=== PATIENT | male | born 1940 | race Caucasian/White ===

== ENCOUNTER 2016-07-23 10:47 | Inpatient (IN) ==
[2016-07-16 11:31] LABS: MANUAL DIFF NEEDED? NO
[2016-07-16 11:50] LABS: BASO% 0.5 % (0.0-0.8); EOS# 0.17 X1000 (0.0-0.7); EOS% 3.1 % (0.0-10.0); HEMATOCRIT 41.8 % (42.0-52.0); HEMOGLOBIN 13.7 g/dL (14.0-18.0); LYMPH# 1.15 X1000 (1.2-3.4); MCH 30.5 PG (27-31); MCHC 32.8 g/dL (33-37); MCV 93.1 FL (81-99); MONO# 0.66 X1000 (0.11-0.59); MONO% 12.1 % (1.7-9.3); MPV 9.5 FL (7.4-10.4); NEUT% 63.3 % (42.2-75.2); PLT 207 X1000 (130-400); RBC 4.49 XMIL (4.7-6.1)
[2016-07-16 12:02] LABS: INR 1.99; PROTIME 21.8 Seconds (9.2-11.7)
[2016-07-16 12:24] LABS: AGAP 13; BUN 14 mg/dL (8-22); CALCIUM 9.3 mg/dL (8.8-10.2); CHLORIDE 100 mmol/L (98-107); COSMO 282; POTASSIUM 4.1 mmol/L (3.5-5.1); SODIUM 141 mmol/L (136-145); TCO2 28 mmol/L (25-35)
[2016-07-23] MEDS ORDERED: PEPCID ONE (11:15)
[2016-07-23] MEDS ORDERED: LEVAQUIN 500 MG/D5W 500 MG/100 ML IVPB ONE (11:16)
[2016-07-23] MEDS ORDERED: REGLAN ONE (11:16)
[2016-07-23] MEDS ORDERED: LR 1,000 ML ONE ×2 (11:16→15:07)
[2016-07-23 12:07] LABS: INR 1.03; PROTIME 10.8 Seconds (9.2-11.7); PTT 30.3 Seconds (22.0-36.0)
[2016-07-23] MEDS ORDERED: DIPRIVAN 1% ONE (14:50)
[2016-07-23] MEDS ORDERED: ZOFRAN ONE (15:06)
[2016-07-23] MEDS ORDERED: ROBINUL ONE (15:06)
[2016-07-23] MEDS ORDERED: QUELICIN (DOSE) ONE (15:06)
[2016-07-23] MEDS ORDERED: ZEMURON ONE (15:06)
[2016-07-23] MEDS ORDERED: XYLOCAINE-MPF 2% ONE (15:06)
[2016-07-23] MEDS ORDERED: NEOSTIGMINE ONE (15:06)
[2016-07-23] MEDS ORDERED: DECADRON ONE (15:07)
[2016-07-23] MEDS ORDERED: NS 1,000 ML ONE (15:12)
[2016-07-23] MEDS ORDERED: BENADRYL LIQUID PO PRN (16:46)
[2016-07-23] MEDS ORDERED: DITROPAN PO PRN (16:46)
[2016-07-23] MEDS ORDERED: PHENERGAN PR PRN (16:46)
[2016-07-23] MEDS ORDERED: BENADRYL IV PRN (16:46)
[2016-07-23] MEDS ORDERED: TYLENOL PO PRN (16:46)
[2016-07-23] MEDS ORDERED: SODIUM CHLORIDE 0.9% INJ PRN (16:46)
[2016-07-23] MEDS ORDERED: ZOFRAN IV PRN (16:46)
[2016-07-23] MEDS ORDERED: B & O 15A SUPP PR PRN (16:46)
[2016-07-23] MEDS ORDERED: LABETALOL IV PRN (16:46)
[2016-07-23] MEDS ORDERED: PHENERGAN PO PRN (16:46)
[2016-07-23] MEDS ORDERED: PHENERGAN IV PRN (16:46)
[2016-07-23] MEDS ORDERED: NITROGLYCERIN SL PRN (18:12)
[2016-07-23] MEDS: NS 1,000 ML IV SCH (18:59)
[2016-07-23] MEDS: PERIDEX MT SCH (20:59)
[2016-07-23] MEDS: LOPID PO SCH (20:59)
[2016-07-23] MEDS: ISOPTIN SR PO SCH (20:59)
[2016-07-23] MEDS: COLACE PO SCH (21:00)
[2016-07-23] MEDS: LIPITOR PO SCH (21:00)
[2016-07-23] MEDS: FLOMAX PO SCH (21:00)
[2016-07-23] MEDS: MORPHINE IV PRN (23:31)
[2016-07-24] MEDS: NORCO-7.5 PO PRN ×5 (00:28→20:08)
[2016-07-24] MEDS: MORPHINE IV PRN ×2 (01:34→15:05)
[2016-07-24] MEDS: NS 1,000 ML IV SCH ×3 (02:41→15:40)
[2016-07-24 06:01] LABS: MANUAL DIFF NEEDED? NO
[2016-07-24 06:07] LABS: BASO% 0.2 % (0.0-0.8); HEMATOCRIT 36.8 % (42.0-52.0); IMM GRAN# 0.02 X1000 (0.0-0.04); IMM GRAN% 0.2 % (0.0-0.5); LYMPH# 0.87 X1000 (1.2-3.4); LYMPH% 7.7 % (20.5-51.1); MCH 30.5 PG (27-31); MCHC 32.6 g/dL (33-37); MCV 93.6 FL (81-99); MONO# 1.22 X1000 (0.11-0.59); MONO% 10.8 % (1.7-9.3); MPV 9.4 FL (7.4-10.4); NEUT% 81.1 % (42.2-75.2); PLT 198 X1000 (130-400); RBC 3.93 XMIL (4.7-6.1)
[2016-07-24 06:39] LABS: AGAP 12; BUN 19 mg/dL (8-22); CALCIUM 8.8 mg/dL (8.8-10.2); CHLORIDE 101 mmol/L (98-107); COSMO 281; SODIUM 139 mmol/L (136-145); TCO2 26 mmol/L (25-35)
[2016-07-24] MEDS: HYZAAR 50/12.5 MG PO SCH (10:20)
[2016-07-24] MEDS: COLACE PO SCH ×2 (10:20→20:08)
[2016-07-24] MEDS: PERIDEX MT SCH ×2 (10:20→20:08)
[2016-07-24] MEDS: LOPID PO SCH ×2 (10:21→20:08)
[2016-07-24] MEDS: ZYRTEC PO SCH (10:21)
[2016-07-24] MEDS: FLOMAX PO SCH ×2 (10:21→20:08)
[2016-07-24] MEDS: KLOR-CON PO SCH (10:21)
[2016-07-24] MEDS: ISOPTIN SR PO SCH ×2 (10:21→20:08)
[2016-07-24] MEDS: LEVAQUIN 500 MG/D5W 500 MG/100 ML IVPB IV SCH (13:01)
[2016-07-24] MEDS: LIPITOR PO SCH (20:08)
[2016-07-25] MEDS: NORCO-7.5 PO PRN ×4 (00:22→23:59)
[2016-07-25] MEDS: RESTORIL PO PRN ×2 (00:24→22:49)
[2016-07-25] MEDS: NS 1,000 ML IV SCH ×3 (01:11→13:04)
[2016-07-25 05:52] LABS: MANUAL DIFF NEEDED? NO
[2016-07-25 06:01] LABS: BASO% 0.1 % (0.0-0.8); EOS# 0.11 X1000 (0.0-0.7); EOS% 1.1 % (0.0-10.0); HEMATOCRIT 30.7 % (42.0-52.0); IMM GRAN# 0.02 X1000 (0.0-0.04); IMM GRAN% 0.2 % (0.0-0.5); LYMPH# 1.43 X1000 (1.2-3.4); LYMPH% 14.9 % (20.5-51.1); MCH 30.8 PG (27-31); MCHC 32.6 g/dL (33-37); MCV 94.5 FL (81-99); MONO# 1.09 X1000 (0.11-0.59); MONO% 11.4 % (1.7-9.3); MPV 9.3 FL (7.4-10.4); NEUT% 72.3 % (42.2-75.2); PLT 169 X1000 (130-400); RBC 3.25 XMIL (4.7-6.1)
[2016-07-25 06:09] LABS: AGAP 7; BUN 16 mg/dL (8-22); CHLORIDE 104 mmol/L (98-107); COSMO 277; INR 0.99; POTASSIUM 3.7 mmol/L (3.5-5.1); PROTIME 10.4 Seconds (9.2-11.7); SODIUM 138 mmol/L (136-145); TCO2 27 mmol/L (25-35)
[2016-07-25] MEDS: PERIDEX MT SCH ×2 (08:58→21:33)
[2016-07-25] MEDS: ZYRTEC PO SCH (08:59)
[2016-07-25] MEDS: ISOPTIN SR PO SCH ×2 (08:59→21:33)
[2016-07-25] MEDS: HYZAAR 50/12.5 MG PO SCH (08:59)
[2016-07-25] MEDS: COLACE PO SCH ×2 (08:59→21:33)
[2016-07-25] MEDS: LOPID PO SCH ×2 (08:59→21:33)
[2016-07-25] MEDS: FLOMAX PO SCH ×2 (08:59→21:33)
[2016-07-25] MEDS: KLOR-CON PO SCH (09:00)
[2016-07-25] MEDS ORDERED: SALINE LOCK IV FLUID XX ONE (09:40)
[2016-07-25] MEDS ORDERED: DULCOLAX PO ONE (09:41)
--- NOTE | 2016-07-25 10:05 | PROGRESS NOTE ---
DATE: 07/24/2016 SUBJECTIVE: Mr. Nolasco reports decent night overnight. Per nursing report, he had to be hand irrigated. The urine has cleared up some but still has red in it. Catheter was removed around 6:00 a.m. PHYSICAL EXAMINATION: Vital Signs: T. 98.3, P 66, BP 130/50. Is and Os: His urine output was estimated at 1200 mL. General: No acute distress. Abdomen: Nontender and nondistended. : Rodriguez catheter has been removed. He has not voided yet. PERTINENT LABORATORY DATA: His hematocrit is 37. Creatinine is 0.9. ASSESSMENT: A 70-year-old male status post transurethral resection of the prostate. He has been on Coumadin and was on Lovenox bridging. We have discussed that in order for him to be discharged, he will have to void spontaneously, not have significant amount of blood clots. PLAN: 1. Ambulate. 2. Discharge pending being able to void and urine looking pink. 3. I would follow him in clinic in 4 weeks. ADDENDUM: On afternoon rounds, Mr. Nolasco has not been able to void. He was in and out catheter with 340 mL reportedly removed. The urine was fairly red. Hence, a 22-Dive[place], three-way Rodriguez catheter was reintroduced. We discussed him spending another night, checking his blood work in the morning. His urine at the time of the afternoon rounds did not have any clots and was cranberry color but not thick. cc: Yasmani Amos MD
--- NOTE | 2016-07-25 10:28 | PROGRESS NOTE ---
DATE: 07/25/2016 SUBJECTIVE: Mr. Nolasco had a Rodriguez introduced in the evening. He reports having a decent night. He denies pain. He has had cranberry colored urine. OBJECTIVE: Vital Signs: Temperature 97.6, pulse 65, and blood pressure 119/47. Urine output has not been recorded yet. General: No acute distress. Abdomen: Nontender. Nondistended. Genitourinary: Rodriguez catheter is in place draining cranberry colored urine without clots. PERTINENT LABS: Hematocrit of 31 and creatinine of 0.8. ASSESSMENT: A 76-year-old male who was on chronic anticoagulation who has had fairly red urine after transurethral resection of the prostate. He is concerned about having his Lovenox restarted. I have explained to him that while his urine is that red that it would be harmful for him. Hence, the risk of restarting it would outweigh the benefit. We discussed him ambulating and hep-locking his IV fluids while monitoring his urine color. I have also discussed with him that he will likely need to keep his Rodriguez catheter for several days to make sure that he is able to gauge the degree of hematuria. He is in agreement for now. PLAN: 1. Ambulate. 2. Hep-Lock IV. 3. Keep Rodriguez catheter to gravity drainage. 4. We will reassess on evening rounds. cc: Yasmani Amos MD
[2016-07-25] MEDS: LEVAQUIN 500 MG/D5W 500 MG/100 ML IVPB IV SCH (11:00)
--- NOTE | 2016-07-25 11:31 | OPERATIVE NOTE ---
PROCEDURE DATE: 07/23/2016 SURGEON: Yasmani Amos MD PREOPERATIVE DIAGNOSIS: Benign prostatic hypertrophy, failure to medical therapy. PRIMARY PROCEDURES: Transurethral resection of the prostate. INDICATIONS: A 76-year-old male, who is on chronic anticoagulation with Coumadin, who has had urinary retention while being hospitalized for orthopedic procedure. He has tried medical therapy but continues to have difficulties. He underwent cystoscopy, which revealed significant trilobar prostatic hypertrophy. He presents for definitive intervention. FINDINGS: Adequate hemostasis at the conclusion of the case. PROCEDURE IN DETAIL: After obtaining informed consent, the patient was brought to the operative room. Perioperative antibiotics and laryngeal mask anesthesia were administered. He was placed in lithotomy position, prepped and draped in sterile fashion. A 21-Mohawk rigid cystoscope was used to gain access to the bladder, which was examined systematic fashion. The prostatic urethra did exhibit trilobar hypertrophy as seen before. His bladder had moderate trabeculations. No significant diverticula, no mucosal lesions, and no evidence of bladder stones. I was able to see bilateral ureteral orifices with clear efflux. We then removed the cystoscope and introduced a 25- [place] rigid resectoscope. Bipolar gyrus button was used to resect the adenoma, starting with the median lobe. Once the median lobe was addressed, I resected adenoma at 6 o'clock from the level of bladder neck, down to the verumontanum, to the depth of the capsule. The resection then ensued in a clockwise and counterclockwise fashion. Following that, the bladder was emptied and repeat examination revealed no evidence of significant bleeding. The resectoscope was removed and 22- [place], 3-way Rodriguez catheter was introduced and connected to irrigation with normal saline. He was extubated and taken to PACU for further recovery. ESTIMATED BLOOD LOSS: 50 mL. COMPLICATIONS: None. DISPOSITION: To PACU and subsequently floor for observation with Rodriguez catheter connected to continuous bladder irrigation. cc: Yasmani Amos MD
[2016-07-25] MEDS: LIPITOR PO SCH (21:33)
[2016-07-26] MEDS: NS 1,000 ML IV SCH (02:32)
[2016-07-26] MEDS ORDERED: TUMS PO ONE (05:22)
[2016-07-26 05:44] LABS: MANUAL DIFF NEEDED? NO
[2016-07-26 05:49] LABS: BASO% 0.3 % (0.0-0.8); EOS# 0.17 X1000 (0.0-0.7); EOS% 2.3 % (0.0-10.0); HEMATOCRIT 32.5 % (42.0-52.0); HEMOGLOBIN 10.6 g/dL (14.0-18.0); IMM GRAN# 0.02 X1000 (0.0-0.04); IMM GRAN% 0.3 % (0.0-0.5); LYMPH# 1.14 X1000 (1.2-3.4); LYMPH% 15.6 % (20.5-51.1); MCH 30.4 PG (27-31); MCHC 32.6 g/dL (33-37); MCV 93.1 FL (81-99); MONO# 0.91 X1000 (0.11-0.59); MONO% 12.5 % (1.7-9.3); MPV 9.5 FL (7.4-10.4); PLT 187 X1000 (130-400); RBC 3.49 XMIL (4.7-6.1)
[2016-07-26 05:51] LABS: INR 0.96; PROTIME 10.1 Seconds (9.2-11.7)
[2016-07-26 06:01] LABS: AGAP 9; BUN 12 mg/dL (8-22); CALCIUM 8.4 mg/dL (8.8-10.2); CHLORIDE 100 mmol/L (98-107); COSMO 272; POTASSIUM 3.2 mmol/L (3.5-5.1); SODIUM 136 mmol/L (136-145); TCO2 27 mmol/L (25-35)
[2016-07-26] MEDS ORDERED: METAMUCIL POWDER PACKET PO ONE (08:05)
[2016-07-26] MEDS ORDERED: ULTRAM PO PRN (08:11)
[2016-07-26] MEDS: ZYRTEC PO SCH (08:15)
[2016-07-26] MEDS: HYZAAR 50/12.5 MG PO SCH (08:15)
[2016-07-26] MEDS: KLOR-CON PO SCH (08:15)
[2016-07-26] MEDS: FLOMAX PO SCH ×2 (08:15→20:17)
[2016-07-26] MEDS: LOPID PO SCH ×2 (08:15→20:17)
[2016-07-26] MEDS: LOVENOX SUBQ SCH ×2 (08:15→20:17)
--- NOTE | 2016-07-26 08:27 | PROGRESS NOTE ---
DATE: 07/26/2016 SUBJECTIVE: Mr. Nolasco reports his catheter had to be flushed once overnight. He is concerned and upset about not having a bowel movement. He reports that his home regimen involves Metamucil and he has been given Colace as well as Dulcolax. He is also agitated about the possibility of discharge. OBJECTIVE: Vital Signs: T 98.3 degrees, P 69, BP 130/56, he had 5 L of urine output recorded overnight. General: No acute distress. : Rodriguez with cranberry colored urine that is not thick. No clots are seen in the tubing or the bag by my examination. Labs: His hematocrit is 32.5 which is up from 30.7 from yesterday. His creatinine is 0.7. His INR which was drawn per his request is 0.96. ASSESSMENT AND PLAN: A 76-year-old male who is on chronic anticoagulation, who underwent transurethral resection of prostate on 07/23/2016. He has hematuria as expected and supposedly had 1 clot overnight which was irrigated manually. I have explained to the patient that he will likely have hematuria for several days. I reviewed his blood work in detail including that his hematocrit has come up which argues against active blood loss. I have discussed with him that he, from my standpoint, is ready for discharge with Rodriguez catheter until Saturday. July 30. He feels uncomfortable with being discharged. I have discussed reinitiating Lovenox twice a day. His questions were answered. PLAN: 1. Start Metamucil. 2. Continue with Hep-Lock IV. 3. Keep Rodriguez catheter to gravity drainage. 4. We will recheck hematocrit tomorrow. cc: Yasmani Amos MD
[2016-07-26] MEDS: ISOPTIN SR PO SCH ×2 (10:36→20:17)
[2016-07-26] MEDS: LIPITOR PO SCH (20:17)
[2016-07-26] MEDS: RESTORIL PO PRN (22:39)
[2016-07-27] MEDS ORDERED: TUMS PO PRN (01:49)
[2016-07-27 05:14] LABS: HEMATOCRIT 30.1 % (42.0-52.0)
[2016-07-27] MEDS ORDERED: METAMUCIL POWDER PACKET PO SCH (09:00)
[2016-07-27] MEDS: ZYRTEC PO SCH (09:52)
[2016-07-27] MEDS: LOPID PO SCH (09:52)
[2016-07-27] MEDS: HYZAAR 50/12.5 MG PO SCH (09:53)
[2016-07-27] MEDS: KLOR-CON PO SCH (09:53)
[2016-07-27] MEDS: ISOPTIN SR PO SCH (09:53)
[2016-07-27] MEDS: FLOMAX PO SCH (09:53)
[2016-07-27] MEDS: LOVENOX SUBQ SCH (09:54)
[2016-07-27 12:27] VITALS: BP 136/62
--- NOTE | 2016-09-10 21:57 | DISCHARGE SUMMARY ---
ADMISSION DATE: 07/23/2016 DISCHARGE DATE: 07/27/2016 PREOPERATIVE DIAGNOSES: 1. Benign prostatic hypertrophy. 2. Urinary retention. PRIMARY PROCEDURES: Transurethral resection of the prostate on 07/23/2016. CONSULTATIONS: None. HISTORY OF PRESENT ILLNESS: A 76-year-old male with longstanding history of BPH , who has been on Saw [place] and Flomax in the past. He had knee surgery with resultant hematoma requiring evacuation. He was found to be in urinary retention after the procedure. He has had to perform intermittent catheterization. He failed finasteride. He had office cystoscopy on 06/13/2016 which revealed significant prostatic hypertrophy with median lobe. He presents for transurethral resection of prostate. PAST MEDICAL HISTORY: 1. Ischemic heart disease. 2. Diverticulosis. 3. GERD. 4. Hypertension. 5. Hyperlipidemia. 6. Hypogonadism. 7. Chronic anticoagulation. 8. Urolithiasis. 9. Sleep apnea. 10. Osteoarthritis. 11. Atrial fibrillation. 12. Retinopathy. PAST SURGICAL HISTORY: Mitral valve replacement (mechanical), bilateral cataract excision, CABG, tonsillectomy and adenoidectomy, laparoscopic Zacarias fundoplication, right total knee arthroplasty, hematoma evacuation. HOME MEDICATIONS: Atorvastatin, clindamycin, Lexapro, Lopid, vitamin B, Flagyl cream, Nitrostat, temazepam, tramadol, verapamil. ALLERGIES: Penicillin. FAMILY HISTORY: No malignancies. SOCIAL HISTORY: Denies tobacco, alcohol or drug use. HOSPITAL COURSE: Course patient was admitted and underwent the above-stated procedure. By postop day 1 his hematocrit was stable. Urine contained no clots but was cranberry in color. On postop day 2 the urine had slightly improved with labs stable again. On postop day 3 he was still clot- free with bright red urine, he had a bowel movement, he was ambulating, and his pain was controlled. On postop day 4 he was deemed to be ready for discharge with Rodriguez catheter in place. DISCHARGE CONDITION: Stable. DISCHARGE MEDICATIONS: 1. [place] 5 p.r.n. (for pain). 2. Trimethoprim 100 mg b.i.d. 3. Lopid 600 mg twice a day. 4. Losartan-hydrochlorothiazide 100/25 daily. 5. Restoril 30 mg as needed at bedtime. 6. Nitroglycerin 0.4 mg sublingual as needed. 7. Metronidazole cream twice a day. 8. Potassium chloride 20 mEq daily. 9. Vitamin C 500 mg. 10. Clindamycin phosphate cream as needed. 11. Azelaic acid 50 g topically as needed. 12. Lipitor 20 mg daily. 13. Flomax 0.4 mg twice a day. 14. Vitamin B daily. 15. Zyrtec 10 mg daily. 16. Verapamil 180 mg twice a day. 17. Metamucil daily. 18. Warfarin 4 mg at bedtime which he restarted at the time of discharge. 19. Lovenox 100 mg twice a day which he restarted on postop day 2. DISPOSITION: Home. FOLLOWUP: In 3-4 days to remove Rodriguez catheter and voiding trial. cc: Yasmani Amos MD MTDD
== END 2016-07-27 15:11 | disposition home or self-care (01) ==
LOC: OR 10:47 → 4N 10:47
PROVIDERS: ADMIT Urology; ATTEND Urology
PROC: UR.TURP (2016-07-23 13:12)

== ENCOUNTER 2016-08-06 07:24 | Inpatient (IN) ==
--- NOTE | 2016-08-06 08:10 | EKG Report ---
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 Rate : 069 BPM Atrial Rate : 069 BPM P-R Int : 192 ms QRS Dur : 112 ms QT Int : 450 ms P-R-T Axes : 067 011 035 degrees QTc Int : 482 ms Normal sinus rhythm. Prolonged QT Abnormal ECG When compared with ECG of 05-OCT-2015 13:16, premature ventricular complexes. are no longer present Unconfirmed Result
[2016-08-06] MEDS ORDERED: LEVAQUIN 500 MG/D5W 500 MG/100 ML IVPB ONE (08:29)
[2016-08-06 08:59] LABS: MANUAL DIFF NEEDED? NO
[2016-08-06 09:13] LABS: BASO% 0.3 % (0.0-0.8); EOS# 0.12 X1000 (0.0-0.7); HEMATOCRIT 20.1 % (42.0-52.0); HEMOGLOBIN 6.6 g/dL (14.0-18.0); IMM GRAN# 0.05 X1000 (0.0-0.04); IMM GRAN% 0.4 % (0.0-0.5); LYMPH% 10.4 % (20.5-51.1); MCH 30.3 PG (27-31); MCHC 32.8 g/dL (33-37); MCV 92.2 FL (81-99); MONO# 0.66 X1000 (0.11-0.59); MONO% 5.7 % (1.7-9.3); MPV 9.8 FL (7.4-10.4); NEUT% 82.2 % (42.2-75.2); PLT 258 X1000 (130-400); RBC 2.18 XMIL (4.7-6.1)
[2016-08-06 09:23] LABS: AGAP 14; BUN 17 mg/dL (8-22); CALCIUM 8.5 mg/dL (8.8-10.2); CHLORIDE 91 mmol/L (98-107); COSMO 261; POTASSIUM 3.5 mmol/L (3.5-5.1); SODIUM 126 mmol/L (136-145); TCO2 21 mmol/L (25-35)
[2016-08-06] MEDS ORDERED: NS 0 ML ONE (09:33)
[2016-08-06] MEDS ORDERED: DIPRIVAN 1% ONE (09:58)
[2016-08-06] MEDS: NORCO-5 ONE ×2 (10:24→12:44)
[2016-08-06] MEDS ORDERED: DITROPAN PO PRN (12:03)
[2016-08-06] MEDS ORDERED: LABETALOL IV PRN (12:03)
[2016-08-06] MEDS ORDERED: PHENERGAN IV PRN (12:03)
[2016-08-06] MEDS ORDERED: ZOFRAN IV PRN (12:03)
[2016-08-06] MEDS ORDERED: BENADRYL LIQUID PO PRN (12:03)
[2016-08-06] MEDS ORDERED: TYLENOL PO PRN (12:03)
[2016-08-06] MEDS ORDERED: B & O 15A SUPP PR PRN (12:03)
[2016-08-06] MEDS ORDERED: BENADRYL IV PRN (12:03)
[2016-08-06] MEDS ORDERED: PHENERGAN PR PRN (12:18)
[2016-08-06] MEDS ORDERED: SODIUM CHLORIDE 0.9% INJ PRN (12:18)
[2016-08-06] MEDS ORDERED: PHENERGAN PO PRN (12:18)
[2016-08-06] MEDS: MORPHINE IV PRN ×3 (12:34→21:52)
[2016-08-06] MEDS ORDERED: RESTORIL PO PRN (13:52)
[2016-08-06] MEDS ORDERED: NITROGLYCERIN SL PRN (13:52)
[2016-08-06] MEDS ORDERED: CLEOCIN T 1% TOP PRN (13:52)
[2016-08-06] MEDS ORDERED: PATIENT'S OWN MED TOP PRN (16:17)
[2016-08-06] MEDS: NS 1,000 ML IV SCH (16:31)
[2016-08-06] MEDS: LEVAQUIN PO SCH (16:32)
[2016-08-06] MEDS: PATIENT'S OWN MED TOP SCH ×2 (16:34→20:11)
[2016-08-06] MEDS: NORCO-7.5 PO PRN ×2 (17:00→23:57)
[2016-08-06] MEDS: FLOMAX PO SCH (20:10)
[2016-08-06] MEDS: COLACE PO SCH (20:10)
[2016-08-06] MEDS: VITAMIN C PO SCH (20:10)
[2016-08-06] MEDS: PERIDEX MT SCH (20:10)
[2016-08-06] MEDS: LOPID PO SCH (20:11)
[2016-08-07] MEDS: MORPHINE IV PRN ×8 (02:21→22:17)
[2016-08-07] MEDS: ISOPTIN SR PO SCH ×3 (02:30→20:00)
[2016-08-07] MEDS: PATIENT'S OWN MED TOP SCH ×3 (02:30→09:29)
[2016-08-07] MEDS: NORCO-7.5 PO PRN ×5 (04:11→23:45)
[2016-08-07 05:45] LABS: HEMATOCRIT 22.8 % (42.0-52.0); HEMOGLOBIN 7.5 g/dL (14.0-18.0); MCH 30.6 PG (27-31); MCHC 32.9 g/dL (33-37); MCV 93.1 FL (81-99); MPV 9.3 FL (7.4-10.4); RBC 2.45 XMIL (4.7-6.1)
[2016-08-07 06:14] LABS: AGAP 13; BUN 11 mg/dL (8-22); CALCIUM 8.1 mg/dL (8.8-10.2); CHLORIDE 98 mmol/L (98-107); COSMO 267; POTASSIUM 3.9 mmol/L (3.5-5.1); SODIUM 133 mmol/L (136-145); TCO2 22 mmol/L (25-35)
[2016-08-07] MEDS: NS 1,000 ML IV SCH ×3 (06:44→20:30)
[2016-08-07] MEDS ORDERED: DECADRON ONE (08:49)
[2016-08-07] MEDS ORDERED: NEO-SYNEPHRINE ONE (08:49)
[2016-08-07] MEDS ORDERED: ZOFRAN ONE (08:49)
[2016-08-07] MEDS ORDERED: LR 1,000 ML ONE (08:49)
[2016-08-07] MEDS ORDERED: EPHEDRINE ONE (08:49)
[2016-08-07] MEDS ORDERED: XYLOCAINE-MPF 2% ONE (08:49)
[2016-08-07] MEDS ORDERED: HYZAAR 50/12.5 MG PO SCH (09:00)
[2016-08-07] MEDS ORDERED: KLOR-CON PO SCH (09:00)
[2016-08-07] MEDS: LIPITOR PO SCH (09:22)
[2016-08-07] MEDS: VICON-C PO SCH (09:22)
[2016-08-07] MEDS: COLACE PO SCH ×2 (09:23→19:59)
[2016-08-07] MEDS: METAMUCIL PO SCH ×2 (09:23)
[2016-08-07] MEDS: ZYRTEC PO SCH (09:23)
[2016-08-07] MEDS: LOPID PO SCH ×2 (09:24→19:59)
[2016-08-07] MEDS: PERIDEX MT SCH ×2 (09:25→19:59)
[2016-08-07] MEDS: FLOMAX PO SCH ×2 (09:29→19:59)
[2016-08-07] MEDS: LEVAQUIN PO SCH (12:53)
[2016-08-07] MEDS: VITAMIN C PO SCH (19:59)
[2016-08-07] MEDS ORDERED: LOVENOX SUBQ ONE (20:17)
[2016-08-07] MEDS ORDERED: MIRALAX PO ONE (20:17)
--- NOTE | 2016-08-07 23:29 | CONSULTATION ---
DATE OF CONSULTATION: 08/07/2016 REQUESTING PHYSICIAN: Yasmani Amos MD. CHIEF COMPLAINT: Symptomatic anemia. HISTORY OF PRESENT ILLNESS: A 76-year-old white male with a very complicated past medical history presents in consultation secondary to symptomatic anemia. Current history of present illness began on 07/23/2016. At that time, patient underwent a transurethral resection of the prostate. Prior to surgical intervention, patient's Coumadin was held. Patient was transitioned with Lovenox therapy. Postoperatively, Lovenox therapy was initiated at 1 mg per kg twice daily. Unfortunately, since that time, patient has experienced clinical difficulty. The patient has experienced postoperative urinary retention secondary to blood clots requiring ER evaluation on July 29 and August 02. The patient presented to the emergency department with profound weakness on August 06. Upon evaluation, patient was found to have a significant anemia. Dr. Amos was consulted. The patient was taken for surgical intervention and cauterizing of the bladder. Hemostasis was achieved. He received 2 units of packed red blood cells yesterday. He has received another 2 units of packed red blood cells today. Overall, patient states he is improving, although slowly. He has a 3-way catheter performing a constant bladder irrigation. The patient denies fevers, chills, nausea, vomiting, or chest discomfort at present time. Patient has had profound weakness as well as some shortness of breath associated with his anemia. PAST MEDICAL HISTORY: 1. Abnormal electrocardiogram with an incomplete left bundle branch block. 2. Status post bilateral cataract removals. 3. Cervical spine pain. 4. Ischemic heart disease status post acute myocardial infarctions in 1981 and 2003. 5. Diverticulosis. 6. Chronic lower extremity edema with venous stasis. 7. Reflux disease. 8. Hypertension. 9. Hypertriglyceridemia. 10. Hyperlipidemia. 11. Hypogonadism. 12. Anticoagulation. 13. Erectile dysfunction. 14. Mitral valve disorder status post mechanical valve replacement in 2002. 15. Nephrolithiasis. 16. Obstructive sleep apnea. 17. History of a benign thyroid nodule. 18. Osteoarthritis. 19. Paroxysmal atrial fibrillation. 20. Retinal edema. 21. History of multiple actinic keratoses, seborrheic keratoses, and a basal cell carcinoma. 22. Left eye strabismus. 23. Insomnia. 24. Lower extremity varicosities. CURRENT MEDICATIONS: 1. Atorvastatin 20 mg at bedtime. 2. B-complex vitamin daily. 3. Clindamycin gel applied twice daily as needed. 4. Coumadin 4 mg nightly. 5. Lexapro 5 mg daily. 6. Finacea 15% gel applied twice daily. 7. Finasteride 5 mg daily. 8. Potassium chloride 20 mEq daily. 9. Lopid 600 mg twice daily. 10. Losartan/hydrochlorothiazide 100/25 daily. 11. Metamucil twice daily. 12. Metronidazole cream twice daily. 13. Nitrostat as needed. 14. Flomax 0.4 mg daily. 15. Temazepam 30 mg at bedtime. 16. Tramadol 3 times daily as needed. 17. Verapamil ER 180 mg twice daily. 18. Vitamin C 500 mg at bedtime. 19. Zyrtec daily. ALLERGIES: Penicillin. Phenol saline. SOCIAL HISTORY: Patient denies tobacco, alcohol or illicit drug use. 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 He enjoys raising roses. He exercises intermittently. FAMILY HISTORY: 1. Patient's father passed at age 82. Height secondary to complications of a surgical correction of an abdominal aortic aneurysm. 2. Mother passed at age 63 secondary to complications of lung cancer. REVIEW OF SYSTEMS: A 12 point review of systems was performed. Pertinent positives and negatives noted in history present illness. PHYSICAL EXAMINATION: Vital signs: Temperature 98.3 degrees, heart rate 72, respirations 16, blood pressure is 122/55. General: Slightly pale, no acute distress. Cardiovascular: Regular rate and rhythm. No significant murmurs, rubs, or gallops. Patient does have a mechanical click. Pulmonary: Clear to auscultation bilaterally. Abdomen: Soft, nontender, nondistended. Positive bowel sounds. Extremities: Moves all extremities well. No significant clubbing, cyanosis, or edema. Neurologic: Cranial 2 through 12 grossly intact. Motor and sensory grossly intact. Psychologic: Examination is appropriate. LABORATORY DATA: White blood cell count 13.6, hemoglobin 7.5, hematocrit 42.8, platelet count 212,000. Sodium 133, potassium 3.9, chloride 98, bicarb 12, creatinine 0.9, glucose 113, calcium 8.1. ASSESSMENT AND PLAN: A 76-year-old white male with a complicated past medical history as noted presents in consultation secondary to recurrent urinary retention in the setting of recent transurethral resection of the prostate. In addition, patient has symptomatic anemia secondary to associated blood loss while on anticoagulation. Patient will be admitted to the hospital for full evaluation and management of each of these conditions. 1. I appreciate the opportunity to participate in the care of Mr. Nolasco. 2. Urinary retention-this likely is secondary to recurrent bleeding and associated blood clots. We will defer management to Dr. Amos. He currently is being treated with 3-way irrigation. We will follow this closely. 3. Anticoagulation-because patient has a mechanical valve, it is important to resume anticoagulation as quickly as possible. We will provide a 40 mg dosage of Lovenox tonight. Depending on his tolerability, we will consider increasing to 100 mg tomorrow. We will follow this closely. 4. Symptomatic anemia-upon admission, patient was noted to be profoundly anemic. He has received a total of 4 units of packed red blood cells while hospitalized. We will continue to follow serial evaluations, especially in the setting of resuming Lovenox therapy. 5. Profound weakness-this likely is secondary to a combination of surgery and anemia. We will plan to initiate physical therapy and encourage activity once able. 6. Hypertension-at this point, patient's antihypertensive agents have been held secondary to hypotension. With achieving euvolemic and acceptable blood levels, I suspect the patient's blood pressure will recover. We will follow this. 7. Reflux disease with a presumed esophageal stricture-the patient has experienced increasing symptoms recently. Unfortunately, with his acute medical condition, we are unable to pursue an esophagogastroduodenoscopy. I have encouraged patient to sit upright with all meals. He is also to eat slowly and hydrate with meals. We will follow this. 8. Hypertriglyceridemia/history of paroxysmal atrial fibrillation-we will remain aware. We will continue patient's home medications. 9. Fluid, electrolytes, nutrition-we will monitor electrolytes. Normal saline at KVO. Cardiac prudent diet. 10. Prophylaxis-patient will be started on low-dose Lovenox. cc: MD Yasmani Hogan MD [facility]
[2016-08-08] MEDS: PATIENT'S OWN MED TOP SCH ×6 (00:43→20:23)
[2016-08-08] MEDS: MORPHINE IV PRN ×2 (00:46→07:23)
[2016-08-08] MEDS: NS 1,000 ML IV SCH (01:28)
[2016-08-08] MEDS: NORCO-7.5 PO PRN ×4 (04:16→22:19)
[2016-08-08 05:58] LABS: MANUAL DIFF NEEDED? NO
[2016-08-08 06:26] LABS: BASO% 0.2 % (0.0-0.8); EOS# 0.36 X1000 (0.0-0.7); EOS% 3.8 % (0.0-10.0); HEMATOCRIT 26.1 % (42.0-52.0); HEMOGLOBIN 8.5 g/dL (14.0-18.0); IMM GRAN# 0.07 X1000 (0.0-0.04); IMM GRAN% 0.7 % (0.0-0.5); LYMPH# 1.77 X1000 (1.2-3.4); LYMPH% 18.9 % (20.5-51.1); MCH 29.9 PG (27-31); MCHC 32.6 g/dL (33-37); MCV 91.9 FL (81-99); MONO# 1.04 X1000 (0.11-0.59); MONO% 11.1 % (1.7-9.3); MPV 9.3 FL (7.4-10.4); NEUT% 65.3 % (42.2-75.2); PLT 223 X1000 (130-400); RBC 2.84 XMIL (4.7-6.1)
[2016-08-08] MEDS: METAMUCIL PO SCH ×2 (10:04)
[2016-08-08] MEDS: PERIDEX MT SCH ×2 (10:04→20:19)
[2016-08-08] MEDS: LOPID PO SCH ×2 (10:04→20:19)
[2016-08-08] MEDS: VICON-C PO SCH (10:05)
[2016-08-08] MEDS: LIPITOR PO SCH (10:05)
[2016-08-08] MEDS: FLOMAX PO SCH ×2 (10:06→20:20)
[2016-08-08] MEDS: ZYRTEC PO SCH (10:06)
[2016-08-08] MEDS: ISOPTIN SR PO SCH ×2 (10:06→20:20)
[2016-08-08] MEDS: COLACE PO SCH ×2 (10:06→20:19)
[2016-08-08] MEDS: LOVENOX SUBQ SCH ×2 (10:06→20:19)
[2016-08-08] MEDS: LEVAQUIN PO SCH (11:08)
[2016-08-08 14:28] LABS: MANUAL DIFF NEEDED? NO
[2016-08-08 14:48] LABS: BASO% 0.3 % (0.0-0.8); EOS# 0.37 X1000 (0.0-0.7); EOS% 4.1 % (0.0-10.0); HEMATOCRIT 26.5 % (42.0-52.0); HEMOGLOBIN 8.5 g/dL (14.0-18.0); IMM GRAN# 0.05 X1000 (0.0-0.04); IMM GRAN% 0.6 % (0.0-0.5); LYMPH# 1.74 X1000 (1.2-3.4); LYMPH% 19.2 % (20.5-51.1); MCH 29.9 PG (27-31); MCHC 32.1 g/dL (33-37); MCV 93.3 FL (81-99); MONO# 1.12 X1000 (0.11-0.59); MONO% 12.4 % (1.7-9.3); MPV 9.5 FL (7.4-10.4); NEUT% 63.4 % (42.2-75.2); PLT 219 X1000 (130-400); RBC 2.84 XMIL (4.7-6.1)
--- NOTE | 2016-08-08 15:49 | Diag Imaging Result Doc PS360 ---
EXAM: XRAY HIP UNILATERAL LT HISTORY: left hip pain with hematoma TECHNIQUE: Two views COMMENT: There is apparent cyst in the neck of the femur anteriorly. There is no evidence of fracture or dislocation. This was apparently present time the previous barium enema 09/24/2011. Otherwise has been no significant change in the appearance of the hip. IMPRESSION: No acute bony disease. Electronically signed by Mariano Rios 08/08/2016 3:47 PM
[2016-08-08] MEDS: VITAMIN C PO SCH (20:20)
--- NOTE | 2016-08-08 22:34 | PROGRESS NOTE ---
DATE: 08/08/2016 SUBJECTIVE: Overall, patient states he feels slightly improved from yesterday. Last night, I initiated low-dose Lovenox. He tolerated this well without evidence of significant bleeding. This morning, full-dose Lovenox was initiated. Originally, patient states he has felt well. This evening, patient continues to feel well. There has been some discoloration of his urine, although no rosette blood has been identified. Hemoglobin and hematocrit have remained stable after transfusion of 4 units of packed red blood cells. The patient denies fevers, chills, nausea, vomiting, chest discomfort, or palpitations. The patient does continue to remain very weak. OBJECTIVE: Vital signs: Temperature maximum 98.4 degrees, heart rate 63-71, respirations 14-16. Blood pressure 109-135/48-66. General: Well nourished, well developed, in no acute distress. Cardiovascular: Regular rate and rhythm. No significant murmurs, rubs, or gallops. A mechanical click is identified. Pulmonary: Clear to auscultation bilaterally. Abdomen: Soft, nontender, nondistended. Positive bowel sounds. Extremities: Moves all extremities well. No significant clubbing, cyanosis, or edema. Dermatologic: Evaluation reveals a large ecchymosis adjacent to the left lateral hip. LABORATORY DATA: White blood cell count 9.04, hemoglobin 8.5, hematocrit 26.5, glucose 219,000. ASSESSMENT AND PLAN: 1. Urinary retention-this is likely secondary to recurrent bleeding with associated clots. Patient is status post surgical intervention by Dr. Amos. He has a 3-way catheter intact. We will defer management to him. 2. Anticoagulation-as above, Lovenox was initiated last night. A full dose was initiated this morning. Thus far, he has tolerated this well. We will continue Lovenox for several days to confirm hemostasis has been achieved prior to reintroducing Coumadin therapy. 3. Symptomatic anemia-as above, the patient's hemoglobin and hematocrit have been stable over 24 hours. We will hold off on further transfusions for now. We will recheck a complete blood count in the morning. 4. Profound weakness-patient does continue to be considerably weak. This likely is secondary to a combination of events. We will continue to follow patient and consider whether physical therapy is appropriate in the coming 24-48 hours. 5. Hypertension-the patient's losartan and hydrochlorothiazide has been held. Verapamil was reintroduced today. Blood pressure at present time is reasonably controlled. 7. Reflux disease with a presumed esophageal stricture-over the course of the last several weeks, the patient has experienced increasing symptoms. At this point, he is not a candidate for intervention. We will continue to encourage aspiration precautions, eating slow, small bites, and adequate hydration. 8. Left lateral hip hematoma-we will check an x-ray today to confirm there is no evidence of bony abnormality. We will continue symptomatic management. 9. Hypertriglyceridemia/history of paroxysmal atrial fibrillation-we will remain aware. 10. Disposition-at this point, patient continues to require halfway care in a hospital setting. We will plan discharge home once appropriate. cc: MD Yasmani Hogan MD [facility]TD[facility]
[2016-08-09] MEDS: MORPHINE IV PRN ×2 (01:14→23:35)
[2016-08-09] MEDS: NS 1,000 ML IV SCH (01:14)
[2016-08-09] MEDS: NORCO-7.5 PO PRN ×5 (03:46→20:49)
[2016-08-09 05:52] LABS: MANUAL DIFF NEEDED? NO
[2016-08-09 06:01] LABS: BASO% 0.2 % (0.0-0.8); EOS# 0.38 X1000 (0.0-0.7); EOS% 4.2 % (0.0-10.0); HEMATOCRIT 27.4 % (42.0-52.0); HEMOGLOBIN 8.8 g/dL (14.0-18.0); IMM GRAN# 0.05 X1000 (0.0-0.04); IMM GRAN% 0.5 % (0.0-0.5); LYMPH# 1.93 X1000 (1.2-3.4); LYMPH% 21.1 % (20.5-51.1); MCH 29.6 PG (27-31); MCHC 32.1 g/dL (33-37); MCV 92.3 FL (81-99); MONO# 1.02 X1000 (0.11-0.59); MONO% 11.2 % (1.7-9.3); MPV 9.2 FL (7.4-10.4); NEUT% 62.8 % (42.2-75.2); PLT 242 X1000 (130-400); RBC 2.97 XMIL (4.7-6.1)
[2016-08-09 06:14] LABS: AGAP 8; ALBUMIN 3.3 g/dL (3.5-5.0); ALKALINE PHOSPHATASE 59 U/L (32-122); BUN 14 mg/dL (8-22); CALCIUM 8.3 mg/dL (8.8-10.2); CHLORIDE 102 mmol/L (98-107); COSMO 276; GOT 17 U/L (10-34); GPT 10 U/L (10-44); POTASSIUM 3.9 mmol/L (3.5-5.1); SODIUM 138 mmol/L (136-145); TCO2 28 mmol/L (25-35); TOTAL BILIRUBIN 0.34 mg/dL (0.20-1.00); TOTAL PROTEIN 5.2 g/dL (6.3-8.3)
[2016-08-09] MEDS: LOVENOX SUBQ SCH ×2 (09:00→21:59)
[2016-08-09] MEDS: FLOMAX PO SCH ×2 (09:00→21:57)
[2016-08-09] MEDS: ZYRTEC PO SCH (09:13)
[2016-08-09] MEDS: LIPITOR PO SCH (09:13)
[2016-08-09] MEDS: VICON-C PO SCH (09:14)
[2016-08-09] MEDS: ISOPTIN SR PO SCH ×2 (09:14→21:56)
[2016-08-09] MEDS: COLACE PO SCH ×2 (09:14→21:56)
[2016-08-09] MEDS: LOPID PO SCH ×2 (09:14→21:56)
[2016-08-09] MEDS: METAMUCIL PO SCH ×2 (09:15)
[2016-08-09] MEDS: PERIDEX MT SCH ×2 (09:15→21:59)
[2016-08-09] MEDS: PATIENT'S OWN MED TOP SCH ×4 (09:19→21:59)
[2016-08-09] MEDS: LEVAQUIN PO SCH (12:30)
[2016-08-09] MEDS: VITAMIN C PO SCH (21:56)
--- NOTE | 2016-08-09 22:05 | PROGRESS NOTE ---
DATE: 08/09/2016 SUBJECTIVE: Patient's overall condition continues to improve. The patient continues to tolerate Lovenox 1 mg/kg twice daily. The patient's 3-way catheter was removed this morning. This evening, patient states he is feeling well. He denies fevers, chills, nausea, vomiting, or chest discomfort. He continues to complain of weakness, although this is improving. OBJECTIVE: Vital Signs: T-max 98.5 degrees, heart rate 63-81, respirations 14-18, blood pressure 129-131 over 56-59. General: Well-nourished, well-developed, in no acute distress. Cardiovascular: Regular rate and rhythm. No significant murmurs, rubs, or gallops. A mechanical click is identified. Pulmonary: Clear to auscultation bilaterally. Abdomen: Soft, nontender, nondistended. Positive bowel sounds. Extremities: Moves all extremities well. No significant clubbing, cyanosis, or edema. Dermatologic: Evaluation reveals no evidence of rash. LABORATORY DATA: White blood cell count 9.13, hemoglobin 8.8, hematocrit 27.4, platelet count 242,000. Sodium 138, potassium 3.9, chloride 102, bicarb 28, BUN 14, creatinine 0.8, glucose 94, calcium 8.3, total bilirubin 0.34, total protein 5.2, albumin 3.3, alkaline phosphatase 59, AST 17, ALT 10. ASSESSMENT AND PLAN: 1. Urinary retention - I am encouraged with the patient's improvement. This is largely secondary to associated clots. We will defer management to Dr. Amos. 2. Anticoagulation - Thus far, the patient has tolerated Lovenox 1 mg/kg q.12 hours. We will continue this for now. I anticipate we will continue Lovenox only through the weekend, and consider resuming Coumadin therapy the 1st of next week. 3. Symptomatic anemia - Patient's hemoglobin and hematocrit have stabilized. We will continue to follow. 4. Profound weakness - The patient was able to walk today after his 3-way catheter was discontinued. We will continue to encourage activity. 5. Hypertension - Patient's blood pressure is reasonably controlled at the present time. We will continue to hold losartan and hydrochlorothiazide therapy. 6. Reflux disease, with a presumed esophageal stricture - We will remain aware. At this point, he is not a candidate for EGD evaluation. We will plan to consider this as an outpatient. 7. Left lateral hip hematoma - Patient is currently being treated with pain control. Symptoms are manageable. 8. Hypertriglyceridemia/history of paroxysmal atrial fibrillation - We will continue to monitor. We will continue home medications. 9. Disposition - At this point, the patient continues to require long term care in the hospital setting. We will plan discharge home once appropriate. cc: MD Yasmani Hogan MD
[2016-08-10] MEDS: NORCO-7.5 PO PRN ×2 (02:30→18:16)
[2016-08-10 06:46] LABS: MANUAL DIFF NEEDED? NO
[2016-08-10 07:07] LABS: INR 0.98; PROTIME 10.3 Seconds (9.2-11.7)
[2016-08-10 07:32] LABS: BASO% 0.2 % (0.0-0.8); EOS# 0.29 X1000 (0.0-0.7); EOS% 2.8 % (0.0-10.0); HEMATOCRIT 26.5 % (42.0-52.0); HEMOGLOBIN 8.6 g/dL (14.0-18.0); IMM GRAN# 0.03 X1000 (0.0-0.04); IMM GRAN% 0.3 % (0.0-0.5); LYMPH# 1.41 X1000 (1.2-3.4); LYMPH% 13.5 % (20.5-51.1); MCH 30.1 PG (27-31); MCHC 32.5 g/dL (33-37); MCV 92.7 FL (81-99); MONO# 1.07 X1000 (0.11-0.59); MONO% 10.2 % (1.7-9.3); MPV 8.9 FL (7.4-10.4); PLT 239 X1000 (130-400); RBC 2.86 XMIL (4.7-6.1)
[2016-08-10] MEDS: LIPITOR PO SCH (09:27)
[2016-08-10] MEDS: ISOPTIN SR PO SCH (09:27)
[2016-08-10] MEDS: METAMUCIL PO SCH ×2 (09:28)
[2016-08-10] MEDS: COLACE PO SCH (09:28)
[2016-08-10] MEDS: FLOMAX PO SCH (09:28)
[2016-08-10] MEDS: PERIDEX MT SCH (09:29)
[2016-08-10] MEDS: ZYRTEC PO SCH (09:29)
[2016-08-10] MEDS: PATIENT'S OWN MED TOP SCH ×2 (09:29→09:30)
[2016-08-10] MEDS: LOVENOX SUBQ SCH (09:29)
[2016-08-10] MEDS: LOPID PO SCH (09:31)
[2016-08-10] MEDS: LEVAQUIN PO SCH (12:36)
[2016-08-10] MEDS: VICON-C PO SCH (12:37)
[2016-08-10 15:52] VITALS: BP 128/53
--- NOTE | 2016-08-10 18:31 | PROGRESS NOTE ---
DATE: 08/10/2016 SUBJECTIVE: Overall, patient continues to improve. This morning, patient was noted to have significant left lower extremity edema. A Doppler was performed revealing reflux, but no evidence of DVT. Over the course of the day, patient states he has done reasonably well. He continues to have adequate urine output. He does note the color of the urine to be dark, but no evidence of rosette blood. He denies fevers, chills, nausea, vomiting, shortness of breath, or chest discomfort. OBJECTIVE: Vital Signs: T-max 99.2, heart rate 78-84, respirations 16-20, blood pressure 128-135 over 53-70. General: Well nourished, well developed, no acute distress. Cardiovascular: Regular rate and rhythm. No significant murmurs, rubs, or gallops. Mechanical click as noted. Pulmonary: Clear to auscultation bilaterally. Abdomen: Soft, nontender, nondistended. Positive bowel sounds. Extremities: Moves all extremities well. No significant clubbing, cyanosis, or edema. Dermatologic: Evaluation reveals no evidence of rash. LABORATORY DATA: White blood cell count 10.46, hemoglobin 8.6, hematocrit 26.5, platelet count 239. PT 10.3, INR 0.98. ASSESSMENT AND PLAN: 1. Urinary retention-patient has achieved resolution. This likely is secondary to clot formation. We will remain aware and defer management to Dr. Yasmani mAos. As described on previous notes, patient is status post transurethral resection of the prostate. 2. Anticoagulation-patient is being treated with Lovenox 1 mg/kg q.12 hours. For now, we will continue this to ensure that patient does not demonstrate evidence of recurrent bleeding. Next week, at my office, we will determine if the initiation of Coumadin therapy is appropriate. 3. Symptomatic anemia-patient's hemoglobin and hematocrit have stabilized. We will plan to recheck this at the office next week. 4. Profound weakness-unfortunately, patient developed profound weakness associated with his anemia. This is slowly improving. We will encourage activity as an outpatient. 5. Hypertension-the patient's verapamil has been continued while hospitalized. His losartan hydrochlorothiazide has been held. I have asked him to hold this until consistently his systolic blood pressure is greater than 130. We will follow this. 6. Reflux disease with a presumed esophageal stricture-this is a new diagnosis. At this point, he is not a good candidate for EGD evaluation. We will continue symptomatic management. 7. Left lateral hip hematoma-we will continue [place] for pain control. 8. Hypertriglyceridemia/history of paroxysmal atrial fibrillation - We will remain aware. We will continue his home medications. DISPOSITION: I agree with discharge home. We will plan to see patient in the office early next week. cc: MD Yasmani Hogan MD
--- NOTE | 2016-08-13 07:39 | VASCULAR LAB ---
DATE: 08/10/2016 REFERRING PHYSICIAN: Dr. Geovani Diaz. READING PHYSICIAN: King Rios MD. CLOTH DYER: Stuart. INDICATION: Left leg pain and swelling. COMPARISON STUDY: 10/25/2015 FINDINGS: The left common femoral, superficial femoral, deep femoral, greater saphenous, popliteal, posterior tibial, and peroneal veins were imaged throughout their course. All are compressible with forward flow. No thrombus is appreciated. Reflux is noted in the left common femoral vein for 3.9 seconds and in the left greater saphenous vein for 2.8 seconds. This is near the saphenofemoral junction. The right common femoral vein was also visualized. It was patent and compressible without thrombus and had reflux for 3.2 seconds. INTERPRETATION: There was no evidence of deep or superficial venous thrombosis in the left lower extremity. There is bilateral common femoral vein reflux disease, it was also noted in the left greater saphenous vein. Compared to the prior study, the reflux disease is present as it was previously. cc: MD Geovani Milian MD Sergey S. Ananyev, MD
--- NOTE | 2016-09-21 15:57 | OPERATIVE NOTE ---
PROCEDURE DATE: 08/06/2016 SURGEON: Dr. Yasmani Amos. PREOPERATIVE DIAGNOSIS: Gross hematuria, clot retention. PRIMARY PROCEDURE: Cystoscopy, clot evacuation, fulguration of bleeding. INDICATIONS: 76-year-old male who is on chronic anticoagulation second to atrial fibrillation and mechanical valve. He underwent transurethral resection of prostate and has had some postoperative hematuria. He presented to the emergency room with clot retention. He was counseled on the above stated procedure. FINDINGS: Approximately 200-300 g of clot removal. There was not a definite bleed noted but there was a generalized oozing from the prostatic fossa which was extensively fulgurated. PROCEDURE IN DETAIL: After obtaining informed consent, patient was brought to the operative room. Perioperative antibiotics and anesthesia were administered. He was placed in the lithotomy position and prepped and draped in sterile fashion. A 21-Nepalese rigid cystoscope was used to gain access to the bladder, which was then examined in a systematic fashion. He had appropriate TUR defect from which generalized mild oozing was seen. There was not a discrete bleeder. There was no pulsatile bleeding. Upon entrance to the bladder there was a fairly well-organized clot which was surprising given that the patient has been on 100 mg of Lovenox subcutaneously twice a day. Nevertheless the clot appeared to be well organized. We removed the cystoscope and introduced a 25-N[place]alese rigid resectoscope. I then used the Hemosphere evacuator, a Estrada syringe, followed by the bipolar gyrus loop to break the clot into smaller pieces and evacuate it. It was quite extensive but eventually I was able to get rid of all the clot. There was no evidence of bleeding in the bladder itself. I was able to see bilateral patent ureteral orifices. I used the loop to cauterize TUR fossa. Upon reexamination, he appeared to have decent hemostasis. We then removed the resectoscope and I placed a 24-N[place]alese 3-way Rodriguez catheter connected to continuous bladder irrigation. He was extubated, taken to PACU for further recovery. ESTIMATED BLOOD LOSS: 30 mL of active blood loss. COMPLICATIONS: None. DISPOSITION: To PACU and then admission to the floor for observation with hematocrit and transfusion of packed red blood cells, and continuous bladder irrigation. cc: Yasmani Amos MD
--- NOTE | 2016-09-26 10:53 | DISCHARGE SUMMARY ---
ADMISSION DATE: 08/06/2016 DISCHARGE DATE: 08/10/2016 PREOPERATIVE DIAGNOSIS: Gross hematuria, clot retention. PRIMARY PROCEDURES: Cystoscopy with clot evacuation and fulguration of bleeding on 08/06/2016. CONSULTATIONS: Dr. Geovani Diaz who is Mr. Nolasco's primary care physician. HISTORY OF PRESENT ILLNESS: A 76-year-old male well known to ok status post transurethral resection of the prostate on 07/23/2016, who has had intermittent hematuria. He presented with worsening hematuria and inability to pass urine via Rodriguez catheter. He presented to the emergency room. He was counseled on cystoscopy with clot evacuation and fulguration of bleeding. PAST MEDICAL HISTORY: Atrial fibrillation, artificial valve, status post replacement, ischemic cardiac disease, diverticulosis, GERD, hypertension, hyperlipidemia, urolithiasis, obstructive sleep apnea. PAST SURGICAL HISTORY: Mechanical mitral valve replacement, TURP, cystoscopy with clot evacuation and fulguration of bleeding, cataract excision, Zacarias fundoplication, hemorrhoidectomy, and tonsillectomy. ALLERGIES: Penicillins. HOME MEDICATIONS: Vitamin B, clindamycin topical, Lovenox subcutaneously b.i.d., Lexapro, finasteride, potassium chloride, Lopid, losartan/hydrochlorothiazide, metronidazole cream, Nitrostat, Flomax, temazepam, tramadol, verapamil, Vitamin C, and Zyrtec. SOCIAL HISTORY: Denies tobacco or illicit drug use. FAMILY HISTORY: Negative for malignancies. REVIEW OF SYSTEMS: Reviewed and 12 systems negative except as mentioned in the HPI. PHYSICAL EXAMINATION: General: No acute distress. HEENT: Normocephalic and atraumatic. Cardiovascular: Regular rate and rhythm. Pulmonary: Bilateral breath sounds. Abdomen: Nontender, nondistended. : Normal external male genitalia. Rodriguez catheter in place, draining bloody urine with clots visible in the bag. HOSPITALIZATION COURSE: The patient was admitted and underwent the above-stated procedure. Postoperatively, he was transferred to the floor with a Rodriguez catheter connected to continuous bladder irrigation. On admission, he was found to have a hematocrit of 20 with a hemoglobin of 6.6. He received a total of 4 units of packed red blood cells during his hospitalization. Dr. Diaz was consulted and we have attempted to titrate his anticoagulation. Over a couple of days, his hematuria had improved significantly. By postoperative day 4, he appeared to be ready for discharge with a Rodriguez catheter in place. DISCHARGE CONDITION: Stable. DISCHARGE MEDICATIONS: Same as on admission. FOLLOWUP: Dr. Amos in 1 week for a voiding trial and postvoid residual check. cc: Yasmani Amos MD
== END 2016-08-10 18:51 | disposition home or self-care (01) ==
LOC: ED 07:24 → 4N 09:59
PROVIDERS: ADMIT Urology; ATTEND Urology

== ENCOUNTER 2016-08-14 18:16 | Inpatient (IN) ==
[2016-08-14] MEDS ORDERED: CLEOCIN T 1% TOP PRN (18:43)
[2016-08-14] MEDS ORDERED: SALINE LOCK IV FLUID XX ONE (18:43)
[2016-08-14] MEDS ORDERED: NITROGLYCERIN SL PRN (18:43)
[2016-08-14 19:10] LABS: URINE MICRO REVIEW NEEDED? NO; URINE SOURCE CATH
[2016-08-14 19:11] LABS: MANUAL DIFF NEEDED? NO
[2016-08-14 19:16] LABS: BASO% 0.3 % (0.0-0.8); EOS# 0.19 X1000 (0.0-0.7); EOS% 2.9 % (0.0-10.0); HEMATOCRIT 25.9 % (42.0-52.0); HEMOGLOBIN 8.1 g/dL (14.0-18.0); IMM GRAN# 0.02 X1000 (0.0-0.04); IMM GRAN% 0.3 % (0.0-0.5); LYMPH# 0.98 X1000 (1.2-3.4); MCH 28.7 PG (27-31); MCHC 31.3 g/dL (33-37); MCV 91.8 FL (81-99); MONO% 13.8 % (1.7-9.3); MPV 8.4 FL (7.4-10.4); NEUT% 67.7 % (42.2-75.2); PLT 242 X1000 (130-400); RBC 2.82 XMIL (4.7-6.1)
[2016-08-14 19:16] LABS: BILIRUBIN URINE NEGATIVE (NEGATIVE); BLOOD URINE LARGE (NEGATIVE); COLOR BROWN; GLUCOSE URINE NEGATIVE (NEGATIVE); LEUKOCYTES URINE MODERATE (NEGATIVE); NITRITE URINE POSITIVE (NEGATIVE); PH URINE 6.5; PROTEIN URINE 100 mg/dL (NEGATIVE); TURBIDITY URINE TURBID (CLEAR); UROBILINOGEN URINE NORMAL (NORMAL)
[2016-08-14 19:17] LABS: UR EPITHELIAL CELLS <10 /HPF (<10); URINE BACTERIA 1+ /HPF; URINE CULTURE NEEDED? YES; URINE RBC TNTC /HPF (<10)
[2016-08-14 19:28] LABS: INR 0.95; PROTIME 9.9 Seconds (9.2-11.7); PTT 33.9 Seconds (22.0-36.0)
[2016-08-14 19:35] LABS: AGAP 11; ALBUMIN 3.4 g/dL (3.5-5.0); ALKALINE PHOSPHATASE 58 U/L (32-122); BUN 11 mg/dL (8-22); CALCIUM 8.6 mg/dL (8.8-10.2); CHLORIDE 102 mmol/L (98-107); COSMO 273; GOT 14 U/L (10-34); GPT 11 U/L (10-44); POTASSIUM 4.1 mmol/L (3.5-5.1); SODIUM 137 mmol/L (136-145); TCO2 24 mmol/L (25-35); TOTAL BILIRUBIN 0.42 mg/dL (0.20-1.00); TOTAL PROTEIN 5.8 g/dL (6.3-8.3)
[2016-08-14] MEDS: LOVENOX SUBQ SCH (20:06)
[2016-08-14] MEDS: NORCO-5 PO PRN (20:06)
[2016-08-14] MEDS: LOPID PO SCH (20:06)
[2016-08-14] MEDS: VITAMIN C PO SCH (20:06)
[2016-08-14] MEDS: ISOPTIN SR PO SCH (20:08)
[2016-08-14] MEDS ORDERED: NS 500 ML ONE (21:26)
[2016-08-14] MEDS: RESTORIL PO PRN (23:30)
--- NOTE | 2016-08-14 23:31 | HISTORY AND PHYSICAL ---
PRIMARY CARE PHYSICIAN: Dr. Geovani Diaz. CHIEF COMPLAINT: Urinary retention. HISTORY OF PRESENT ILLNESS: A 76-year-old white male with a very complicated past medical history, presents for evaluation of profound fatigue and urinary retention. Current history of present illness began on 07/23/2016. At that time, patient underwent a transurethral resection of the prostate. Prior to surgical intervention, patient's Coumadin was held. Patient was transitioned to Lovenox therapy. The patient tolerated the procedure quite well. Postoperatively, Lovenox 1 mg/kg twice daily was initiated. Unfortunately, since that time, patient has experienced significant postoperative complications. The patient experienced postoperative urinary retention, secondary blood clots, requiring ER evaluation, on July 29 and August 02. On August 06, patient was admitted secondary to profound anemia, secondary to urinary blood loss and retention. The patient was taken for surgical intervention and cauterization of the bladder. Hemostasis was achieved. The patient received a total of 4 units of packed red blood cells. The patient remained hospitalized until 08/10/2016. At that time, the patient was discharged home in stable condition. Over the course of the weekend, patient states he initially did reasonably well. On Saturday, patient was noted to have increasing blood in his urine. This continued to progress throughout the day yesterday. This morning, patient awoke and was unable to urinate. He attempted on multiple occasions. Ultimately, patient was seen in clinic this evening. Patient was noted to have acute urinary retention. In addition, patient noted profound fatigue and feeling of ill being. Patient will be admitted to the hospital for full evaluation and management of these conditions. PAST MEDICAL HISTORY: 1. Abnormal electrocardiogram with incomplete left bundle branch block. 2. Status post bilateral cataract removals. 3. Cervical spine pain. 4. Ischemic heart disease. 5. Diverticulosis. 6. Chronic lower extremity edema with venostasis. 7. Reflux disease. 8. Hypertension. 9. Hypertriglyceridemia. 10. Hyperlipidemia. 11. Hypogonadism. 12. Anticoagulation. 13. Erectile dysfunction. 14. Mitral valve disorder, status post mechanical valve replacement, in 2002. 15. Nephrolithiasis. 16. Obstructive sleep apnea. 17. History of benign thyroid nodule. 18. Osteoarthritis. 19. Paroxysmal atrial fibrillation. 20. Retinal edema. 21. History of multiple actinic keratoses, seborrheic keratoses, and basal cell carcinoma. 22. Left eye strabismus. 23. Insomnia. 24. Lower extremity varicosities. CURRENT MEDICATIONS: 1. Atorvastatin 20 mg at bedtime. 2. B-complex vitamin daily. 3. Clindamycin gel applied twice daily as needed. 4. Lexapro 5 mg daily. 5. Finacea 15% gel applied twice daily. 6. Potassium chloride 20 mEq daily. 7. Lopid 600 mg twice a day. 8. Losartan and hydrochlorothiazide 100/12.5 daily. 9. Metamucil twice daily. 10. Metronidazole cream twice daily. 11. Nitrostat as needed. 12. Temazepam 30 mg at bedtime. 13. Tramadol as needed. 14. Verapamil ER 180 mg twice daily. ALLERGIES: Patient states he is allergic to penicillin and Phenol saline. SOCIAL HISTORY: Patient denies tobacco, alcohol or illicit drug use. 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 He enjoys raising [place]. He exercises intermittently. FAMILY HISTORY: Patient's father passed at age 82, secondary to complications of surgical correction of an abdominal aortic aneurysm. Patient's mother passed at age 63, secondary to complications of lung cancer. REVIEW OF SYSTEMS: A 12 point review of system was performed. Pertinent positives and negatives noted in history present illness. PHYSICAL EXAMINATION: VITAL SIGNS: Temperature 98.5, heart rate 70, respirations 20, blood pressure is 158/72. GENERAL: Well nourished, well developed, in no acute distress. HEENT: Normocephalic atraumatic. Pupils equal, round, react to light. Extraocular muscles intact. Sclerae anicteric. [place] conjunctivae. Oral and nasopharynx clear without exudate. NECK: Supple. No lymphadenopathy. No thyromegaly. No bruits auscultated. CARDIOVASCULAR: Regular rate and rhythm. No significant murmurs, rubs, or gallops. A mechanical click is noted. PULMONARY: Clear to auscultation bilaterally. ABDOMEN: Soft, nontender, slightly distended in the suprapubic region with tenderness to palpation. No guarding or rebound. Positive bowel sounds. EXTREMITIES: Moves all extremities well. No significant clubbing or cyanosis. Patient has 1+ lower extremity edema bilaterally with venostasis changes. NEUROLOGIC: Cranial nerves 2 through 12 grossly intact. Motor and sensory grossly intact. PSYCHOLOGIC: Appropriate. LABORATORY DATA: White blood cell count 6.3, hemoglobin 8.1, hematocrit 25.9, platelet count 242,000. PT 9.9, INR 0.95, PTT is 33.9. Sodium 137, potassium 4.1, chloride 102, bicarb 24, BUN 11, creatinine 0.8, glucose 97, calcium 8.6, total bilirubin 0.42, total protein 5.8, albumin 3.4, alkaline phosphatase 58. AST 14, ALT 11. ASSESSMENT AND PLAN: A 76-year-old white male with a complicated past medical history, presents in consultation of acute urinary retention. In addition, the patient is noted to have profound fatigue, likely secondary to underlying anemia. The patient will be admitted to the hospital for full evaluation and management of each of these conditions. 1. Acute urinary retention - this likely is secondary to thrombus in the bladder. A Rodriguez catheter was placed. 1600 mL was immediately removed. We will consult Dr. Amos, for further evaluation and management. 2. Symptomatic anemia - patient's hemoglobin and hematocrit are borderline. Because of his symptomatic nature, I would like to transfuse the patient 1 unit of packed red blood cells. We will follow this. 3. Anticoagulation - patient has a mechanical valve. For this reason, I do feel strongly that Lovenox will need to be continued. We will continue Lovenox 100 mg subcutaneous q.12 hours. We will follow this. 4. Profound weakness - this likely is multifactorial. We will continue his current regimen. We will encourage activity. 5. Hypertension - we will continue patient's home medications. 6. Reflux disease - patient with presumed esophageal stricture - patient has experienced increasing symptoms recently. For now, we will continue symptomatic management. He is not a good candidate for EGD evaluation at present time. 7. Hypertriglyceridemia/paroxysmal atrial fibrillation - we will remain aware. 8. Fluid, electrolytes, nutrition. We will monitor electrolytes. Saline lock IV. Cardiac prudent diet. Prophylaxis. Patient will be placed on therapeutic dose of subcu Lovenox. cc: Geovani Diaz MD
[2016-08-15] MEDS: METROCREAM TOP SCH ×3 (03:24→21:48)
[2016-08-15] MEDS: PATIENT'S OWN MED TOP SCH ×3 (03:24→21:48)
[2016-08-15] MEDS: NORCO-5 PO PRN (04:24)
[2016-08-15 06:01] LABS: MANUAL DIFF NEEDED? NO
[2016-08-15 06:18] LABS: BASO% 0.2 % (0.0-0.8); EOS# 0.21 X1000 (0.0-0.7); EOS% 2.4 % (0.0-10.0); HEMATOCRIT 25.9 % (42.0-52.0); HEMOGLOBIN 8.1 g/dL (14.0-18.0); IMM GRAN# 0.04 X1000 (0.0-0.04); IMM GRAN% 0.5 % (0.0-0.5); LYMPH# 1.06 X1000 (1.2-3.4); LYMPH% 12.1 % (20.5-51.1); MCH 28.6 PG (27-31); MCHC 31.3 g/dL (33-37); MCV 91.5 FL (81-99); MONO# 1.14 X1000 (0.11-0.59); MONO% 13.1 % (1.7-9.3); MPV 9.3 FL (7.4-10.4); NEUT% 71.7 % (42.2-75.2); PLT 235 X1000 (130-400); RBC 2.83 XMIL (4.7-6.1)
[2016-08-15] MEDS ORDERED: POTASSIUM CHLORIDE 20 MEQ PO SCH (09:00)
[2016-08-15] MEDS ORDERED: HYDROCHLOROTHIAZIDE PO SCH (09:00)
[2016-08-15] MEDS ORDERED: LOSARTAN PO SCH (09:00)
[2016-08-15] MEDS: LOVENOX SUBQ SCH ×3 (09:09→22:30)
[2016-08-15] MEDS: ISOPTIN SR PO SCH ×3 (09:10→21:47)
[2016-08-15] MEDS: LOPID PO SCH ×3 (09:10→21:46)
[2016-08-15] MEDS: VICON-C PO SCH ×2 (09:11→11:02)
[2016-08-15] MEDS: METAMUCIL PO SCH ×4 (09:11→11:02)
[2016-08-15] MEDS: ZYRTEC PO SCH ×2 (09:12→11:02)
--- NOTE | 2016-08-15 09:44 | Diag Imaging Result Doc PS360 ---
US NON VASC EXTREMITY LIMITED - 08/15/2016 INDICATION: US Lt upper lateral leg hematoma for fluid pocket TECHNIQUE: Ultrasound of the lateral left thigh COMPARISON: 01/20/2015 FINDINGS: There is apparently significant bruising at the lateral left thigh. In the superficial subcutaneous tissue, there is a heterogeneous echogenic mass like area measuring 9 x 4.7 cm. No free fluid. No internal color Doppler flow. IMPRESSION: Echogenic mass or collection in the left leg in the region of the bruising. Certainly compatible with a hematoma, although a true mass cannot be fully excluded. Correlate clinically. Electronically signed by Guido Ellington 08/15/2016 9:42 AM
[2016-08-15] MEDS ORDERED: NS 500 ML ONE (10:45)
[2016-08-15] MEDS: PERCOCET-5 PO PRN ×3 (12:31→22:30)
--- NOTE | 2016-08-15 15:26 | PROGRESS NOTE ---
DATE: 08/15/2016 SUBJECTIVE: Patient was admitted yesterday with symptomatic anemia and urinary retention. A Rodriguez catheter was placed and approximately 1600 mL of urine was immediately removed. The patient's hemoglobin and hematocrit were noted to be low. One unit of packed red blood cells was transfused. This morning, patient states, overall, he is feeling reasonably well. The patient continues to have considerable weakness. His urine per Rodriguez catheter remains blood tinged. He denies fevers, chills, nausea, vomiting, shortness of breath, or chest discomfort. He continues to have considerable pain associated with his left lateral leg hematoma. OBJECTIVE: T-max is 99.0 degrees, heart rate 52-63, respirations 14-20, blood pressure 117-146 over 58-63.General: Well nourished, well developed, no acute distress. Cardiovascular: Regular rate and rhythm. No significant murmurs, rubs, or gallops. A mechanical click is identified. Pulmonary: Clear to auscultation bilaterally. Abdomen: Soft, nontender, nondistended. Positive bowel sounds. Extremities: Moves all extremities well. No significant clubbing or cyanosis. Patient has 1 to 2+ lower extremity edema on the left and trace to 1+ lower extremity on the right. Dermatologic: Evaluation reveals a large ecchymosis with associated mass to the left lateral upper leg. LABORATORY DATA: White blood cell count 8.73, hemoglobin 8.1, hematocrit 25.9, platelet count is 235,000. ASSESSMENT AND PLAN: 1. Urinary retention - question is raised as to the etiology. This certainly could be secondary to blood clot formation. I am also concerned in regards to idiopathic urinary retention as well as urinary retention secondary to medications. We will consult Dr. Amos. We will continue Rodriguez catheter placement. We will convert the patient from [place] to Percocet. I have asked him to use the least amount of effective medication. We will follow patient's clinical course closely. 2. Symptomatic anemia - Patient's hemoglobin and hematocrit did not rise despite 1 unit of packed red blood cells. We will transfuse 1 additional unit. We will remain aware. 3. Anticoagulation - patient has a mechanical valve, thus anticoagulation is imperative. This poses a problem in the setting of bleeding. At this point, I feel the benefits outweigh the risk of Lovenox. We will continue 100 mg subcu q.12 hours. We will follow this. 4. Profound weakness - I suspect this is multifactorial. We will treat anemia as above. We will encourage activity as tolerated. 5. Hypertension - we will continue patient's home medications. 6. Reflux disease with a presumed esophageal stricture - at this point, patient is not a good candidate for EGD evaluation. We will continue omeprazole therapy. We will follow this. 7. Hypertriglyceridemia/paroxysmal atrial fibrillation - We will remain aware. 8. Disposition - at this point, patient continues to require [facility] care in a hospital setting. We will plan discharge home once appropriate. cc: Geovani Diaz MD
[2016-08-15] MEDS: LIPITOR PO SCH (21:46)
[2016-08-15] MEDS: VITAMIN C PO SCH (21:47)
[2016-08-16] MEDS: RESTORIL PO PRN (00:03)
[2016-08-16] MEDS: PERCOCET-5 PO PRN ×6 (02:28→22:52)
[2016-08-16 05:56] LABS: MANUAL DIFF NEEDED? NO
[2016-08-16 06:07] LABS: BASO% 0.4 % (0.0-0.8); EOS# 0.33 X1000 (0.0-0.7); EOS% 4.1 % (0.0-10.0); HEMATOCRIT 28.7 % (42.0-52.0); IMM GRAN# 0.04 X1000 (0.0-0.04); IMM GRAN% 0.5 % (0.0-0.5); LYMPH% 22.2 % (20.5-51.1); MCH 28.2 PG (27-31); MCHC 31.4 g/dL (33-37); MONO# 1.06 X1000 (0.11-0.59); MONO% 13.1 % (1.7-9.3); NEUT% 59.7 % (42.2-75.2); PLT 235 X1000 (130-400); RBC 3.19 XMIL (4.7-6.1)
[2016-08-16] MEDS: PRILOSEC PO SCH (06:17)
[2016-08-16] MEDS: METAMUCIL PO SCH ×2 (08:24)
[2016-08-16] MEDS: VICON-C PO SCH (08:24)
[2016-08-16] MEDS: LOPID PO SCH ×2 (08:24→22:51)
[2016-08-16] MEDS: ZYRTEC PO SCH (08:25)
[2016-08-16] MEDS: ISOPTIN SR PO SCH ×2 (08:26→22:51)
--- NOTE | 2016-08-16 09:56 | PROGRESS NOTE ---
DATE: 08/16/2016 SUBJECTIVE: Overall, patient's condition is largely unchanged. Over the course of the last 12 hours, patient has experienced increasing clot formation in his Rodriguez catheter. He has required multiple irrigations. He denies fevers, chills, nausea, vomiting, shortness of breath, or chest discomfort. He was transfused 1 unit of packed red blood cells yesterday. His hemoglobin and hematocrit responded appropriately. OBJECTIVE: Vital Signs: T-max is 99.1 degrees, heart rate 52-58, respirations 14-18, blood pressure 116-139/53-64. General: Well nourished, well developed, in no acute distress. Cardiovascular: Regular rate and rhythm. No significant murmurs, rubs, or gallops. A mechanical click is identified. Pulmonary: Clear to auscultation bilaterally. Abdomen: Soft, nontender, nondistended. Positive bowel sounds. Extremities: Moves all extremities well. No significant clubbing, cyanosis, or edema. Dermatologic: Evaluation reveals no evidence of rash. Laboratory Data: White blood cell count 8.09, hemoglobin 9, hematocrit 28.7, platelet count is 235,000. ASSESSMENT AND PLAN: 1. Urinary retention-I remain concerned that this likely is secondary to a combination of bladder laxity and possible obstruction from blood clots. I have discussed the case with Dr. Amos. He plans to replace the current Rodriguez with a larger bore Rodriguez catheter. We will start [address] irrigation. We will continue to follow this closely. As described below, it is important that we continue anticoagulation in the setting of his mechanical valve. The benefit of this outweighs the risk of genitourinary bleeding. 2. Symptomatic anemia-patient responded appropriately to 1 unit of packed red blood cells yesterday. For now, we will continue to follow serial hemoglobin and hematocrit evaluations. 3. Anticoagulation-as above, patient is anticoagulated secondary to a mechanical valve. He is being treated with Lovenox 100 mg subcutaneously every 12 hours. Again, the benefits of anticoagulation outweigh the risks. We will continue his current dosage of Lovenox. 4. Profound weakness-this likely is secondary to a combination of blood loss anemia, recent surgical intervention, and deconditioning. We will encourage patient to increase activity as tolerated. We will follow. 5. Hypertension-patient's blood pressure is reasonably controlled on his current regimen. 6. Reflux disease with a presumed esophageal stricture-at this point, patient is not a candidate for EGD evaluation. We will continue omeprazole therapy. He is minimally symptomatic. 7. Hypertriglyceridemia/paroxysmal atrial fibrillation-we will remain aware. 8. Disposition-at this point, patient continues to require correction care in the hospital setting. We will plan discharge home once appropriate. cc: Geovani Diaz MD
[2016-08-16] MEDS: PATIENT'S OWN MED TOP SCH ×2 (10:28→22:54)
[2016-08-16] MEDS: LOVENOX SUBQ SCH ×2 (10:33→22:50)
[2016-08-16] MEDS: METROCREAM TOP SCH ×2 (10:34→22:54)
[2016-08-16] MEDS: SEPTRA DS PO SCH (22:51)
[2016-08-16] MEDS: LIPITOR PO SCH (22:51)
[2016-08-16] MEDS: VITAMIN C PO SCH (22:52)
[2016-08-17] MEDS: PERCOCET-5 PO PRN ×6 (03:14→23:10)
[2016-08-17 06:11] LABS: MANUAL DIFF NEEDED? NO
[2016-08-17 06:22] LABS: BASO% 0.2 % (0.0-0.8); EOS# 0.35 X1000 (0.0-0.7); EOS% 3.9 % (0.0-10.0); HEMATOCRIT 28.6 % (42.0-52.0); HEMOGLOBIN 8.9 g/dL (14.0-18.0); IMM GRAN# 0.07 X1000 (0.0-0.04); IMM GRAN% 0.8 % (0.0-0.5); LYMPH# 1.28 X1000 (1.2-3.4); LYMPH% 14.4 % (20.5-51.1); MCH 28.2 PG (27-31); MCHC 31.1 g/dL (33-37); MCV 90.5 FL (81-99); MONO# 1.08 X1000 (0.11-0.59); MONO% 12.1 % (1.7-9.3); MPV 9.1 FL (7.4-10.4); NEUT% 68.6 % (42.2-75.2); PLT 238 X1000 (130-400); RBC 3.16 XMIL (4.7-6.1)
[2016-08-17 06:45] LABS: AGAP 9; ALBUMIN 3.1 g/dL (3.5-5.0); ALKALINE PHOSPHATASE 56 U/L (32-122); BUN 9 mg/dL (8-22); CALCIUM 8.4 mg/dL (8.8-10.2); CHLORIDE 103 mmol/L (98-107); COSMO 275; GOT 12 U/L (10-34); GPT 9 U/L (10-44); SODIUM 138 mmol/L (136-145); TCO2 26 mmol/L (25-35); TOTAL BILIRUBIN 0.34 mg/dL (0.20-1.00); TOTAL PROTEIN 5.3 g/dL (6.3-8.3)
[2016-08-17] MEDS: PRILOSEC PO SCH (07:02)
[2016-08-17] MEDS ORDERED: TYLENOL PO PRN (08:48)
[2016-08-17] MEDS: ZYRTEC PO SCH (08:58)
[2016-08-17] MEDS: ISOPTIN SR PO SCH ×2 (08:58→21:46)
[2016-08-17] MEDS: LOPID PO SCH ×2 (08:58→21:46)
[2016-08-17] MEDS: LEXAPRO PO SCH (08:58)
[2016-08-17] MEDS: VICON-C PO SCH (08:59)
[2016-08-17] MEDS: METAMUCIL PO SCH ×2 (08:59)
[2016-08-17] MEDS: SEPTRA DS PO SCH ×2 (08:59→21:46)
[2016-08-17] MEDS: PATIENT'S OWN MED TOP SCH ×2 (08:59→22:41)
[2016-08-17] MEDS: METROCREAM TOP SCH ×2 (08:59→22:41)
--- NOTE | 2016-08-17 17:28 | PROGRESS NOTE ---
DATE: 08/17/2016 SUBJECTIVE: Mr. Nolasco reports no events overnight. He states the nurses had to irrigate him once. He is currently comfortable. He is satisfied with the appearance of his urine. OBJECTIVE: Vital Signs: T 97.8 degrees, P 55, BP 141/62. There was reported urine output of 4.5 L. PHYSICAL EXAMINATION: General: No acute distress. Abdomen: Nontender, nondistended. Genitourinary: Rodriguez in place with very light pink urine with no clots evident in the bag, continuous bladder irrigation is on low rate. PERTINENT LABS: His white cell count is 9000, hematocrit 28.6. Yesterday it was 28.7. ASSESSMENT AND PLAN: A 76-year-old male with medical comorbidities on chronic anticoagulation, who is currently on Lovenox which was held today per Dr. Diaz. His urine seems to be looking better. He again reports the need for irrigation by Nursing Staff once. I reassured him as I currently do not see any clots and his urine color and consistency look good. We discussed titrating and eventually turning off his continuous bladder irrigation. We discussed that his blood count is stable. Of note, he has Staph epidermidis in his urine which is likely a contaminant but I am not opposed to having treatment. The patient is conscientious and anxious about it. It is sensitive to nitrofurantoin, oxacillin and Bactrim. PLAN: 1. I recommend continuous bladder irrigation overnight with titration hopefully being turned off. 2. Once the continuous bladder irrigation is off and his blood count is stable, he should be clear for discharge with attempt at voiding trial early next week on Saturday or Saturday. 3. Thank you for the consultation. We will follow. cc: MD Geovani Reyna MD
--- NOTE | 2016-08-17 18:08 | PROGRESS NOTE ---
DATE: 08/17/2016 SUBJECTIVE: Overall, patient's condition continues to very slowly improve. This morning I discontinued Lovenox therapy with a plan for 24 hours off of therapy. Over the course of the last 8 hours patient's urine has decreased in redness. Overall, patient states he feels reasonably well. He denies nausea, vomiting, shortness of breath, or chest discomfort. His hemoglobin and hematocrit remain stable. OBJECTIVE: Vital signs: T-max 98.4 degrees, heart rate 51-65, respirations 16-18, blood pressure 121 to 149 over 56 to 63. General: Well nourished, well developed, no acute distress. Cardiovascular: Regular rate and rhythm. No significant murmurs, rubs, or gallops. A mechanical click is noted. Pulmonary: Clear to auscultation bilaterally. Abdomen: Soft, nontender, nondistended. Positive bowel sounds. Extremities: Moves all extremities well. No significant clubbing or cyanosis. Patient does have 1 to 2+ lower extremity edema on the left. Dermatologic: Evaluation reveals no evidence of rash. LABORATORY DATA: White blood cell count 8.89, hemoglobin 8.9, hematocrit 28.6, platelet count 238,000. Sodium 138, potassium 4.0, chloride 103, bicarb 26, BUN 9, creatinine 0.8, glucose 102, calcium 8.4, total bilirubin 0.34, total protein 5.3, albumin 3.1, alkaline phosphatase 56, AST 12, ALT 9. ASSESSMENT AND PLAN: 1. Urinary retention-as on previous notes, I remain concerned this may be secondary to a combination of bladder laxity and possible obstruction from blood clots. Patient is on a 3- way catheter at present time. We will continue this. We will hold the patient's Lovenox for a total of 24 hours. We will discuss this case further with Dr. Amos. 2. Symptomatic anemia-patient's hemoglobin and hematocrit were stable after transfusions. We will continue to follow serial examinations. 3. Anticoagulation-this remains very important in the setting of a mechanical valve. We will hold Lovenox for only 24 hours. At this point, the risk of further holding therapy outweighs the benefit. We will follow patient's blood loss with serial hemoglobin, hematocrit evaluations. Long-term plan is for resuming Coumadin therapy. 4. Profound weakness-the patient's energy level remains stable. This likely is secondary to a combination of conditions as described above. We will follow this and encourage activity. 5. Hypertension-the patient's blood pressure is reasonably controlled on his current regimen. 6. Reflux disease with possible esophageal stricture-at present time, patient is not a candidate for EGD evaluation. For now, we will continue omeprazole therapy. 7. Hypertriglyceridemia/paroxysmal atrial fibrillation-will remain aware. 8. Left lateral upper leg hematoma-we will continue symptomatic management. 9. Disposition-at this point, patient continues to require [facility] care in the hospital setting. We will plan discharge home once appropriate. cc: Geovani Diaz MD
[2016-08-17] MEDS: LIPITOR PO SCH (21:46)
[2016-08-17] MEDS: VITAMIN C PO SCH (21:46)
[2016-08-18] MEDS: RESTORIL PO PRN ×2 (01:29→22:27)
[2016-08-18] MEDS: PERCOCET-5 PO PRN ×5 (04:44→22:26)
[2016-08-18 05:13] LABS: MANUAL DIFF NEEDED? NO
[2016-08-18 05:25] LABS: BASO% 0.5 % (0.0-0.8); EOS# 0.42 X1000 (0.0-0.7); HEMATOCRIT 28.2 % (42.0-52.0); HEMOGLOBIN 8.7 g/dL (14.0-18.0); IMM GRAN# 0.04 X1000 (0.0-0.04); IMM GRAN% 0.5 % (0.0-0.5); LYMPH# 1.36 X1000 (1.2-3.4); LYMPH% 16.3 % (20.5-51.1); MCHC 30.9 g/dL (33-37); MCV 90.7 FL (81-99); MONO# 1.03 X1000 (0.11-0.59); MONO% 12.4 % (1.7-9.3); MPV 8.8 FL (7.4-10.4); NEUT% 65.3 % (42.2-75.2); PLT 224 X1000 (130-400); RBC 3.11 XMIL (4.7-6.1)
[2016-08-18 05:34] LABS: AGAP 10; ALBUMIN 3.3 g/dL (3.5-5.0); ALKALINE PHOSPHATASE 53 U/L (32-122); BUN 10 mg/dL (8-22); CALCIUM 8.4 mg/dL (8.8-10.2); CHLORIDE 103 mmol/L (98-107); COSMO 276; GOT 11 U/L (10-34); GPT 8 U/L (10-44); POTASSIUM 4.3 mmol/L (3.5-5.1); SODIUM 139 mmol/L (136-145); TCO2 26 mmol/L (25-35); TOTAL BILIRUBIN 0.26 mg/dL (0.20-1.00); TOTAL PROTEIN 5.4 g/dL (6.3-8.3)
[2016-08-18] MEDS: PRILOSEC PO SCH (06:35)
[2016-08-18] MEDS: ZYRTEC PO SCH (09:05)
[2016-08-18] MEDS: ISOPTIN SR PO SCH ×2 (09:05→22:25)
[2016-08-18] MEDS: SEPTRA DS PO SCH ×2 (09:05→22:26)
[2016-08-18] MEDS: LOPID PO SCH ×2 (09:05→22:27)
[2016-08-18] MEDS: VICON-C PO SCH (09:06)
[2016-08-18] MEDS: LEXAPRO PO SCH (09:06)
[2016-08-18] MEDS: METAMUCIL PO SCH ×2 (09:06)
[2016-08-18] MEDS: METROCREAM TOP SCH ×2 (11:26→22:28)
[2016-08-18] MEDS: PATIENT'S OWN MED TOP SCH ×2 (11:27→22:27)
[2016-08-18] MEDS: LOVENOX SUBQ SCH ×2 (11:45→22:25)
--- NOTE | 2016-08-18 12:48 | PROGRESS NOTE ---
DATE: 08/18/2016 SUBJECTIVE: Overall, the patient states he is doing reasonably well. Yesterday, patient's Lovenox was held. The patient tolerated this well. The patient's urine has cleared without evidence of red discoloration secondary to blood. He denies fever, chills, nausea, vomiting, shortness of breath, or chest discomfort. His hemoglobin and hematocrit remain stable. His energy level remains low. OBJECTIVE: Vital signs: T-max 98.4, heart rate 51-63, respirations 16, blood pressure 120-149 over 54-63. General: Well nourished, well developed, in no acute distress. Cardiovascular: Regular rate and rhythm, no significant murmurs, rubs, or gallops. A mechanical click is noted. Pulmonary: Clear to auscultation bilaterally. Abdomen: Soft, nontender, nondistended, positive bowel sounds. Extremities: Moves all extremities well. No significant clubbing or cyanosis. The patient has 2+ lower extremity edema on the left and trace lower extremity edema on the right. Dermatologic: Evaluation reveals a large ecchymosis to the left lateral hip. LABORATORY DATA: White blood cell count 8.32, hemoglobin 8.7, hematocrit 28.2, platelet count is 224,000. Sodium 139, potassium 4.3, chloride 103, bicarb 26, BUN 10, creatinine 0.9, glucose 87, calcium 8.4. Total bilirubin 0.26, total protein 5.4, albumin 3.3, alkaline phosphatase 53, AST 11, ALT 8. ASSESSMENT AND PLAN: 1. Urinary retention--as in previous notes, I suspect this is secondary to a combination of bladder laxity and the possibility of clot formation. As described above, the patient's urine has cleared. His 3-way irrigation has been held. He currently is asymptomatic. We will resume anticoagulation today. We will follow this closely. Should patient's condition remain stable, we will consider discharge home tomorrow versus Saturday. 2. Symptomatic anemia--the patient's hemoglobin and hematocrit are stable. We will remain aware. 3. Anticoagulation--as noted yesterday, Lovenox was held for 24 hours. The benefits of discontinuing included halting genitourinary bleeding. At this point, the risk of valvular- associated clot is present. We will resume anticoagulation. Once again, we will follow this closely. 4. Profound weakness--the patient's overall condition is slowly improving. We will encourage activity. 5. Hypertension--the patient's blood pressure is reasonably controlled on his current regimen. 6. Reflux with a possible esophageal stricture--we will continue a proton pump inhibitor. His symptoms are stable. Once his overall condition has stabilized, we will consider an EGD evaluation. 7. Left lateral upper leg hematoma--we will continue symptomatic management. He continues to have considerable pain. 8. Hypertriglyceridemia/paroxysmal atrial fibrillation--we will remain aware. 9. Disposition--at this point, the patient continues to require senior living care in a hospital setting. We will plan discharge home once appropriate. cc: Geovani Diaz MD
[2016-08-18] MEDS: VITAMIN C PO SCH (22:25)
[2016-08-18] MEDS: LIPITOR PO SCH (22:26)
[2016-08-19 05:42] LABS: MANUAL DIFF NEEDED? NO
[2016-08-19 06:02] LABS: BASO% 0.5 % (0.0-0.8); EOS# 0.46 X1000 (0.0-0.7); EOS% 5.6 % (0.0-10.0); HEMATOCRIT 28.2 % (42.0-52.0); HEMOGLOBIN 8.8 g/dL (14.0-18.0); IMM GRAN# 0.02 X1000 (0.0-0.04); IMM GRAN% 0.2 % (0.0-0.5); LYMPH# 1.68 X1000 (1.2-3.4); LYMPH% 20.4 % (20.5-51.1); MCH 28.3 PG (27-31); MCHC 31.2 g/dL (33-37); MCV 90.7 FL (81-99); MONO# 0.95 X1000 (0.11-0.59); MONO% 11.5 % (1.7-9.3); MPV 9.1 FL (7.4-10.4); NEUT% 61.8 % (42.2-75.2); PLT 239 X1000 (130-400); RBC 3.11 XMIL (4.7-6.1)
[2016-08-19 06:27] LABS: AGAP 10; ALBUMIN 3.2 g/dL (3.5-5.0); ALKALINE PHOSPHATASE 57 U/L (32-122); BUN 12 mg/dL (8-22); CALCIUM 8.3 mg/dL (8.8-10.2); CHLORIDE 105 mmol/L (98-107); COSMO 280; GOT 12 U/L (10-34); GPT 8 U/L (10-44); POTASSIUM 4.2 mmol/L (3.5-5.1); SODIUM 141 mmol/L (136-145); TCO2 26 mmol/L (25-35); TOTAL BILIRUBIN 0.19 mg/dL (0.20-1.00); TOTAL PROTEIN 5.4 g/dL (6.3-8.3)
[2016-08-19] MEDS: PRILOSEC PO SCH (08:15)
[2016-08-19] MEDS: PERCOCET-5 PO PRN ×2 (09:06→14:24)
[2016-08-19] MEDS: LOPID PO SCH ×2 (09:18→20:56)
[2016-08-19] MEDS: ISOPTIN SR PO SCH ×2 (09:18→20:56)
[2016-08-19] MEDS: ZYRTEC PO SCH (09:19)
[2016-08-19] MEDS: METAMUCIL PO SCH ×2 (09:19)
[2016-08-19] MEDS: VICON-C PO SCH (09:19)
[2016-08-19] MEDS: SEPTRA DS PO SCH ×2 (09:19→20:56)
[2016-08-19] MEDS: LEXAPRO PO SCH (09:19)
[2016-08-19] MEDS: PATIENT'S OWN MED TOP SCH ×2 (09:22→21:08)
--- NOTE | 2016-08-19 10:07 | PROGRESS NOTE ---
DATE: 08/19/2016 SUBJECTIVE: Overall, patient continues to slowly improve. Clinically, patient's urinalysis has essentially cleared. There is no evidence of blood per visual examination. His p.o. intake remains reasonable. He is tolerating Lovenox therapy. He denies fevers, chills, nausea, vomiting, shortness of breath, or chest discomfort. His energy level remains low. OBJECTIVE: Vital Signs: T-max 98.5 degrees, heart rate 59-79, respirations 16-20, blood pressure 120-132/45-66. General: Well nourished, well developed, no acute distress. Cardiovascular: Regular rate and rhythm. No significant murmurs, rubs, or gallops. A mechanical click is identified. Pulmonary: Clear to auscultation bilaterally. Abdomen: Soft, nontender, nondistended. Positive bowel sounds. Extremities: Moves all extremities well. No significant clubbing or cyanosis. There is 2+ lower extremity edema noted on the left, trace on the right. Dermatologic: Evaluation reveals a large left lateral leg hematoma. Laboratory Data: White blood cell count 8.24, hemoglobin 8.8, hematocrit 28.2, platelet count is 239,000. Sodium 141, potassium 4.2, chloride 105, bicarb 26, BUN 12, creatinine 0.9, glucose 87, calcium 8.3. Total bilirubin 0.19, total protein 5.4, albumin 3.2, alkaline phosphatase 57, AST 12, ALT 8. ASSESSMENT AND PLAN: 1. Urinary retention-per previous notes, I suspect this is secondary to a combination of lateral laxity and a possible clot obstruction. Patient is currently being treated with 3-way irrigation. At this point, I feel transitioning away from this is most appropriate. We will clamp his irrigation. We will follow up patient to confirm no evidence of clot formation returns. We will follow this along with urology. 2. Symptomatic anemia-patient is status post transfusions. Hemoglobin and hematocrit at the present time are stable. We will follow this with Lovenox intervention. 3. Anticoagulation-as above, patient is being treated with Lovenox. At this point, because of his multiple hospitalizations secondary to bleeding, we will continue to hold Coumadin. We will follow this closely as well. 4. Profound weakness-patient is slowly improving. We will encourage activity. 5. Hypertension-the patient's blood pressure is adequately controlled on his current regimen. 6. Reflux disease with a possible esophageal stricture-the patient's symptoms are decreasing. We will continue a proton pump inhibitor. Once patient is over this acute illness, we will consider whether an EGD is appropriate. 7. Left lateral upper leg hematoma-we will continue symptomatic management. 8. Hypertriglyceridemia/paroxysmal atrial fibrillation-we will remain aware. 9. Disposition-at this point, patient continues to require detention care in a hospital setting. Should patient tolerate transition away from bladder irrigation, we will plan discharge home in the morning. cc: Geovani Diaz MD
[2016-08-19] MEDS: METROCREAM TOP SCH ×2 (11:06→22:18)
[2016-08-19] MEDS: LOVENOX SUBQ SCH ×2 (11:06→22:56)
[2016-08-19] MEDS: LIPITOR PO SCH (20:56)
[2016-08-19] MEDS: VITAMIN C PO SCH (20:56)
[2016-08-19] MEDS: RESTORIL PO PRN (22:55)
[2016-08-20] MEDS: PERCOCET-5 PO PRN ×4 (04:46→22:30)
[2016-08-20] MEDS: PRILOSEC PO SCH (06:11)
[2016-08-20] MEDS: LOPID PO SCH ×2 (10:09→21:57)
[2016-08-20] MEDS: SEPTRA DS PO SCH ×2 (10:09→21:57)
[2016-08-20] MEDS: VICON-C PO SCH (10:09)
[2016-08-20] MEDS: LEXAPRO PO SCH (10:09)
[2016-08-20] MEDS: METAMUCIL PO SCH ×2 (10:09)
[2016-08-20] MEDS: METROCREAM TOP SCH ×2 (10:10→21:58)
[2016-08-20] MEDS: ZYRTEC PO SCH (10:10)
[2016-08-20] MEDS: PATIENT'S OWN MED TOP SCH ×2 (10:10→21:58)
[2016-08-20] MEDS: ISOPTIN SR PO SCH ×2 (10:10→21:57)
[2016-08-20] MEDS: LOVENOX SUBQ SCH (11:51)
--- NOTE | 2016-08-20 21:01 | PROGRESS NOTE ---
DATE: 08/20/2016 SUBJECTIVE: Unfortunately, with decreasing irrigation, patient has developed increasing hematuria with clot formation. The patient denies fevers, chills, nausea, vomiting, shortness of breath or chest discomfort. His energy level remains low. His p.o. intake is adequate. OBJECTIVE: Vital signs: Temperature maximum 99 degrees, heart rate 59-62, respirations 16-20, blood pressure 106-129/47-56. General: Well nourished, well developed, no acute distress. Cardiovascular: Regular rate and rhythm. No significant murmurs, rubs, or gallops. A mechanical click is noted. Pulmonary: Clear to auscultation bilaterally. Abdomen: Soft, nontender, nondistended. Positive bowel sounds. Extremities: Moves all extremities well. No significant clubbing or cyanosis. Patient has 2+ lower extremity edema on the left. Trace lower extremity edema on the right. Dermatologic: Evaluation reveals a left upper leg hematoma. LABORATORY DATA: None. ASSESSMENT AND PLAN: 1. Urinary retention-as noted in previous notes, I suspect this is secondary to a combination of bladder laxity and clot obstruction. With the decreasing 3-way irrigation, unfortunately patient has developed recurrent hematuria. We will discuss case with Dr. Amos and consider whether repeat surgical intervention is warranted. 2. Symptomatic anemia-the patient is status post transfusions. We will plan to recheck a hemoglobin and hematocrit in the a.m. For now, we will continue Lovenox therapy. 3. Anticoagulation-at this point, with a mechanical valve, the risk of discontinuing anticoagulation outweighs the benefits. For now, we will continue his current regimen. We will hold Coumadin therapy. 4. Profound weakness-patient is achieving very slow improvement. We will continue to encourage activity. 5. Hypertension-patient's blood pressure is reasonably controlled on his current regimen. 6. Reflux disease with possible esophageal stricture-patient's symptoms are improving with a proton pump inhibitor. After patient's urinary condition is resolved, we will consider EGD evaluation. 7. Left lateral upper leg hematoma-we will continue symptomatic management. He continues to have intermittent pain. 8. Hypertriglyceridemia/paroxysmal atrial fibrillation-we will remain aware. 9. Disposition-at this point, patient continues to require [facility] care in a hospital setting. We will plan discharge home once appropriate. cc: Geovani Diaz MD
[2016-08-20] MEDS: VITAMIN C PO SCH (21:57)
[2016-08-20] MEDS: LIPITOR PO SCH (21:57)
[2016-08-20] MEDS: RESTORIL PO PRN (23:40)
[2016-08-21] MEDS: PRILOSEC PO SCH (06:11)
[2016-08-21 06:28] LABS: MANUAL DIFF NEEDED? NO
[2016-08-21 06:40] LABS: BASO% 0.3 % (0.0-0.8); EOS% 4.3 % (0.0-10.0); HEMOGLOBIN 8.3 g/dL (14.0-18.0); IMM GRAN# 0.04 X1000 (0.0-0.04); IMM GRAN% 0.4 % (0.0-0.5); LYMPH# 1.29 X1000 (1.2-3.4); LYMPH% 13.8 % (20.5-51.1); MCH 27.9 PG (27-31); MCHC 30.7 g/dL (33-37); MCV 90.6 FL (81-99); MONO# 1.17 X1000 (0.11-0.59); MONO% 12.6 % (1.7-9.3); MPV 9.5 FL (7.4-10.4); NEUT% 68.6 % (42.2-75.2); PLT 232 X1000 (130-400); RBC 2.98 XMIL (4.7-6.1)
[2016-08-21 06:59] LABS: AGAP 9; ALBUMIN 3.3 g/dL (3.5-5.0); ALKALINE PHOSPHATASE 55 U/L (32-122); BUN 10 mg/dL (8-22); CALCIUM 8.1 mg/dL (8.8-10.2); CHLORIDE 101 mmol/L (98-107); COSMO 272; GOT 12 U/L (10-34); GPT 7 U/L (10-44); POTASSIUM 4.2 mmol/L (3.5-5.1); SODIUM 137 mmol/L (136-145); TCO2 27 mmol/L (25-35); TOTAL BILIRUBIN 0.22 mg/dL (0.20-1.00); TOTAL PROTEIN 5.5 g/dL (6.3-8.3)
[2016-08-21] MEDS: PATIENT'S OWN MED TOP SCH ×2 (09:14→22:08)
[2016-08-21] MEDS: SEPTRA DS PO SCH ×2 (09:14→22:04)
[2016-08-21] MEDS: METROCREAM TOP SCH ×2 (09:15→23:39)
[2016-08-21] MEDS: METAMUCIL PO SCH ×2 (12:06)
[2016-08-21] MEDS: ZYRTEC PO SCH (12:06)
[2016-08-21] MEDS ORDERED: FENTANYL ONE (13:38)
[2016-08-21] MEDS ORDERED: DIPRIVAN 1% ONE (13:38)
[2016-08-21] MEDS ORDERED: XYLOCAINE-MPF 2% ONE (13:49)
[2016-08-21] MEDS ORDERED: ROBINUL ONE (13:49)
[2016-08-21] MEDS ORDERED: DITROPAN PO PRN (15:32)
[2016-08-21] MEDS: LEXAPRO PO SCH (15:58)
[2016-08-21] MEDS: VICON-C PO SCH (15:58)
[2016-08-21] MEDS: ISOPTIN SR PO SCH ×2 (15:58→22:04)
[2016-08-21] MEDS: LOPID PO SCH ×2 (15:58→22:03)
[2016-08-21] MEDS: PERCOCET-5 PO PRN (18:24)
--- NOTE | 2016-08-21 19:20 | PROGRESS NOTE ---
DATE: 08/21/2016 SUBJECTIVE: The patient was initially seen this morning. He continued to have significant hematuria per Rodriguez catheter. The patient was taken for surgical intervention today. He tolerated this quite well. This evening, patient continues 3-way irrigation. His urine shows minimal discoloration. He denies fevers, chills, nausea, vomiting, shortness of breath, or chest discomfort. OBJECTIVE: Vital signs: Temperature maximum 98.5 degrees, heart rate 64-74, respirations 16-18, blood pressure 120-132/51-58. General: Well nourished, well developed, in no acute distress. Cardiovascular: Regular rate and rhythm. No significant murmurs, rubs, or gallops. A mechanical click is noted. Pulmonary: Clear to auscultation bilaterally. Abdomen: Soft, nontender, nondistended. Positive bowel sounds. Extremities: Moves all extremities well. No significant clubbing, cyanosis. Patient has 2+ lower extremity edema on the left and trace on the right. Dermatologic: Evaluation reveals a large ecchymosis to the left lateral upper leg. LABORATORY DATA: White blood cell count 9.32, hemoglobin 8.3, hematocrit 27, platelet count 232,000, sodium 137, potassium 4.2, chloride 101, bicarb 27, BUN 10, creatinine 0.9, glucose 88, calcium 8.1, total bilirubin 0.22. Total protein 5.5, albumin 3.3, alkaline phosphatase 55, AST 12, ALT 7. ASSESSMENT AND PLAN: 1. Urinary retention-as noted on previous notes, this likely is secondary to a combination of bladder laxity and clot obstruction. Patient is status post surgical intervention with cauterization of the bladder lumen and clot removal. We will continue 3-way irrigation per Dr. Amos. We will follow patient's clinical course closely. Patient likely will require discharge with a Rodriguez catheter placed. 2. Symptomatic anemia-patient's hemoglobin and hematocrit remain stable. We will continue to follow. 3. Anticoagulation-patient's anticoagulation was held yesterday for surgical intervention. We will plan to resume this tomorrow morning. We will remain aware. 4. Profound weakness-patient's condition is slowly improving. We will follow. 5. Hypertension-we will continue patient's current regimen as his blood pressure is controlled. 6. Reflux disease with possible esophageal stricture -we will continue patient on omeprazole therapy. His condition is stable. 7. Left lateral upper leg hematoma-we will continue symptomatic management. 8. Hypertriglyceridemia/paroxysmal atrial fibrillation-we will remain aware. 9. Disposition-at this point, the patient continues to require [facility] care in the hospital setting. We will plan discharge home once appropriate. cc: Geovani Diaz MD
[2016-08-21] MEDS: PERIDEX MT SCH (22:03)
[2016-08-21] MEDS: LIPITOR PO SCH (22:03)
[2016-08-21] MEDS: VITAMIN C PO SCH (22:03)
[2016-08-21] MEDS: RESTORIL PO PRN (23:30)
[2016-08-22] MEDS: PERCOCET-5 PO PRN ×3 (03:36→22:49)
[2016-08-22] MEDS: PRILOSEC PO SCH ×2 (05:24→09:04)
--- NOTE | 2016-08-22 07:13 | PROGRESS NOTE ---
DATE: 08/22/2016 SUBJECTIVE: Mr. Nolasco reports a good night overnight. His urine is clear. OBJECTIVE: Vital Signs: T 98.6, P 62, BP 109/46. There is a report of 1500 mL out. General: No acute distress. Abdomen: Nontender. Nondistended. : Rodriguez catheter in place with crystal clear urine. PERTINENT LABS: None this morning. ASSESSMENT: A 76-year-old male status post cystoscopy with clot evacuation and fulguration of bleeding. He was currently doing well. I have discussed with the patient that it is appropriate to restart his Lovenox coagulation. Our tentative plan would be to go home with a catheter in place for 1 week. PLAN: 1. Okay to resume Lovenox this morning 2. Keep Rodriguez catheter to gravity drainage. I have stopped his continuous bladder irrigation. cc: MD Geovani Reyna MD
[2016-08-22] MEDS: LEXAPRO PO SCH (09:02)
[2016-08-22] MEDS: ISOPTIN SR PO SCH ×2 (09:03→21:16)
[2016-08-22] MEDS: METAMUCIL PO SCH ×2 (09:03)
[2016-08-22] MEDS: VICON-C PO SCH (09:03)
[2016-08-22] MEDS: PERIDEX MT SCH ×2 (09:03→21:15)
[2016-08-22] MEDS: LOVENOX SUBQ SCH ×2 (09:03→21:15)
[2016-08-22] MEDS: LOPID PO SCH ×2 (09:03→21:15)
[2016-08-22] MEDS: SEPTRA DS PO SCH ×2 (09:03→21:16)
[2016-08-22] MEDS: PATIENT'S OWN MED TOP SCH ×2 (09:04→22:00)
[2016-08-22] MEDS: METROCREAM TOP SCH ×2 (09:04→22:00)
[2016-08-22] MEDS: ZYRTEC PO SCH (09:09)
--- NOTE | 2016-08-22 21:05 | PROGRESS NOTE ---
DATE: 08/22/2016 SUBJECTIVE: This morning, Lovenox therapy was re-initiated. Over the course of the day, patient states he has done very well. The patient had one episode of minor bleeding noted in his Rodriguez catheter. Otherwise, there has been no bleeding present. He denies fevers, chills, nausea, vomiting, shortness of breath, or chest discomfort. His p.o. intake is adequate. His energy level is low, but slowly improving. OBJECTIVE: Vital signs: Temperature maximum 98.6 degrees, heart rate 59-65, respirations 12-16, blood pressure 109-130/46-58. General: Well nourished, well developed, in no acute distress. Cardiovascular: Regular rate and rhythm. No significant murmurs, rubs, or gallops. A mechanical click is noted. Pulmonary: Clear to auscultation bilaterally. Abdomen: Soft, nontender, nondistended. Positive bowel sounds. Extremities: Moves all extremities well. No significant clubbing or cyanosis. Patient has 2+ lower extremity edema on the left and 1+ lower extremity edema on the right. Dermatologic: Evaluation reveals a large ecchymosis to the lateral left upper leg. LABORATORY DATA: None. ASSESSMENT AND PLAN: 1. Urinary retention-as noted previously, this likely is secondary to a combination of lateral laxity and clot formation. Patient is status post a repeat surgical intervention yesterday. He tolerated this well. Thus far, there has been no evidence of significant bleeding. We will continue Rodriguez catheter placement. His bladder irrigations have been held. 2. Symptomatic anemia-as of yesterday, hemoglobin and hematocrit stable. We will remain aware. 3. Anticoagulation-patient's Lovenox was resumed this morning. We will continue this for now. We will consider resuming Coumadin in the next week or so. 4. Profound weakness-patient's energy level was slowly improving. We will remain aware. 5. Hypertension-patient's blood pressure is controlled on his current regimen. 6. Reflux disease with possible esophageal stricture-we will continue patient on omeprazole therapy. Symptoms at present time are stable. Currently, the risk of intervention outweighs the benefits. 7. Left lateral upper leg hematoma-we will continue symptomatic management. 8. Hypertriglyceridemia/paroxysmal atrial fibrillation-we will remain aware. 9. Disposition-at this point, patient continues to require [facility] care in a hospital setting. We will plan discharge home once appropriate. cc: Geovani Diaz MD
[2016-08-22] MEDS: VITAMIN C PO SCH (21:16)
[2016-08-22] MEDS: LIPITOR PO SCH (21:16)
[2016-08-22] MEDS: RESTORIL PO PRN (22:49)
[2016-08-23 05:45] LABS: MANUAL DIFF NEEDED? NO
[2016-08-23] MEDS: PRILOSEC PO SCH ×2 (05:49→06:27)
[2016-08-23 06:06] LABS: BASO% 0.6 % (0.0-0.8); EOS% 7.6 % (0.0-10.0); HEMATOCRIT 26.4 % (42.0-52.0); HEMOGLOBIN 8.1 g/dL (14.0-18.0); IMM GRAN# 0.03 X1000 (0.0-0.04); IMM GRAN% 0.5 % (0.0-0.5); LYMPH# 1.57 X1000 (1.2-3.4); MCH 27.4 PG (27-31); MCHC 30.7 g/dL (33-37); MCV 89.2 FL (81-99); MONO# 0.87 X1000 (0.11-0.59); MONO% 13.3 % (1.7-9.3); MPV 9.2 FL (7.4-10.4); PLT 255 X1000 (130-400); RBC 2.96 XMIL (4.7-6.1)
[2016-08-23 06:49] LABS: AGAP 12; ALBUMIN 3.1 g/dL (3.5-5.0); ALKALINE PHOSPHATASE 56 U/L (32-122); BUN 12 mg/dL (8-22); CALCIUM 8.5 mg/dL (8.8-10.2); CHLORIDE 102 mmol/L (98-107); COSMO 281; GOT 12 U/L (10-34); GPT 7 U/L (10-44); POTASSIUM 4.2 mmol/L (3.5-5.1); SODIUM 141 mmol/L (136-145); TCO2 27 mmol/L (25-35); TOTAL BILIRUBIN 0.13 mg/dL (0.20-1.00); TOTAL PROTEIN 5.5 g/dL (6.3-8.3)
[2016-08-23] MEDS: LEXAPRO PO SCH (09:24)
[2016-08-23] MEDS: ZYRTEC PO SCH (09:24)
[2016-08-23] MEDS: VICON-C PO SCH (09:24)
[2016-08-23] MEDS: ISOPTIN SR PO SCH ×2 (09:24→19:37)
[2016-08-23] MEDS: PERIDEX MT SCH ×2 (09:24→19:36)
[2016-08-23] MEDS: METAMUCIL PO SCH ×2 (09:24)
[2016-08-23] MEDS: LOVENOX SUBQ SCH ×2 (09:24→19:36)
[2016-08-23] MEDS: LOPID PO SCH ×2 (09:24→19:37)
[2016-08-23] MEDS: METROCREAM TOP SCH (09:25)
[2016-08-23] MEDS: PATIENT'S OWN MED TOP SCH (09:25)
[2016-08-23] MEDS: SEPTRA DS PO SCH ×2 (09:25→19:36)
[2016-08-23 09:26] LABS: PROTIME 10.5 Seconds (9.2-11.7)
[2016-08-23] MEDS: PERCOCET-5 PO PRN ×2 (11:19→18:53)
--- NOTE | 2016-08-23 11:23 | PROGRESS NOTE ---
DATE: 08/23/2016 SUBJECTIVE: Mr. Nolasco reports a good night overnight. He has not had bladder spasms. There were no blood or clots to report. OBJECTIVE: Temperature 09.5, pulse 51, BP 115/52. There is a recorded urine output of 2100 mL. General: In no acute distress. Abdomen: Nontender, nondistended. : Rodriguez catheter in place. Off irrigation, draining clear urine. PERTINENT LABORATORY DATA: His hematocrit is 26.4. Creatinine is 1.0. ASSESSMENT AND PLAN: A 76-year-old male with recent transurethral resection of prostate who has had 2 episodes of clot retention and hematuria requiring trips to the OR. He is currently doing well off irrigation. His Lovenox was restarted. I have discussed with Mr. Nolasco that we will keep the catheter until 08/28/2016 and, at that point, I will see him in the office and have the catheter removed and try a voiding trial. PLAN: 1. He will go home with Rodriguez catheter in place. 2. Agree with Tommie SANDOVAL. 3. When he is started on Coumadin per Dr. Diaz discretion, it should be appropriate to change his antibiotic to nitrofurantoin or Keflex while he has the catheter in place to decrease the risk of catheter-associated UTI. cc: MD Geovani Reyna MD
[2016-08-23] MEDS: VITAMIN C PO SCH (19:36)
[2016-08-23] MEDS: LIPITOR PO SCH (19:37)
[2016-08-23 20:09] VITALS: BP 114/51
--- NOTE | 2016-08-23 22:38 | DISCHARGE SUMMARY ---
ADMISSION DATE: 08/14/2016 DISCHARGE DATE: 08/23/2016 ADMISSION DIAGNOSIS: Urinary retention. DISCHARGE DIAGNOSES: 1. Urinary retention, resolved. 2. Symptomatic anemia secondary to urinary bleeding number. 3. Anticoagulation. 4. Profound weakness, improving. 5. Hypertension, present on arrival. 6. Reflux disease with possible esophageal stricture, present on arrival. 7. Left lateral upper leg hematoma, present on arrival. 8. Hypertriglyceridemia, present on arrival. 9. Paroxysmal atrial fibrillation, present on arrival. CONSULTATIONS: Yasmani Amos MD with Urology was consulted for further evaluation and management of persistent hematuria. PROCEDURES: 1. A left upper lateral leg/left thigh ultrasound was performed on 08/15/2016 which revealed echogenic mass or collection in the left leg in the region of the bruising. Certainly compatible with a hematoma, although a true mass cannot be fully excluded. 2. Surgical intervention with cauterization of the urinary bladder was performed on 08/21/[address] Amos. HISTORY AND PHYSICAL EXAMINATION: See admit note. PHYSICAL EXAMINATION PRIOR TO DISCHARGE: Vital Signs: Temperature 98.3 degrees, heart rate 59, respirations 16, blood pressure is 114/51. General: Well nourished, well developed, no acute distress. Cardiovascular: Regular rate and rhythm. No significant murmurs, rubs, or gallops. A mechanical click is noted. Pulmonary: Clear to auscultation bilaterally. Abdomen: Soft, nontender, nondistended. Positive bowel sounds. Extremities: Moves all extremities well. No significant clubbing or cyanosis. Patient has 2+ lower extremity edema on the left and 1+ lower extremity edema on the right. Dermatologic: Evaluation reveals a large ecchymoses to the left lateral hip. LABORATORY DATA PRIOR TO DISCHARGE: White blood cell count 6.54, hemoglobin 8.1, hematocrit 26.4, platelet count is 255,000. PT 10.5, INR is 1.00. Sodium 141, potassium 4.2, chloride 102, bicarb 27, BUN 12, creatinine 1, glucose 96, calcium 8.5, total bilirubin 0.13. Total protein 5.5, albumin 3.1, alkaline phosphatase 56, AST 12, ALT 7. HOSPITAL COURSE: Patient was admitted as per history and physical examination. Hospital course per condition is as follows: 1. Urinary retention-upon admission, patient was noted to have considerable urinary retention. A Rodriguez catheter was immediately placed. 1.6 L of urine was immediately removed. A significant amount of hematuria was noted with clot formation. Question was raised as to the etiology of patient's urinary retention. Primary urinary retention versus clot obstruction remained highest on the differential. Attempts were made to treat patient's persistent hematoma and clot formation with a 3-way bladder irrigation. Unfortunately, this proved unsuccessful. Ultimately, the patient was treated with bladder cauterization on August 21. Patient tolerated the procedure quite well. Post procedure, patient's urine cleared. At time of discharge, patient had clear urine and will be discharged home on a Rodriguez catheter. We will defer further management of urinary retention to Dr. Amos as an outpatient. 2. Persistent hematuria with clot formation-I suspect this is secondary to significant bladder distention and associated bleeding in the setting of Lovenox therapy. Unfortunately, we attempted conservative measures of treatment, but these proved ineffective. As above, patient required surgical intervention with cauterization on August 24. Patient tolerated this procedure well. The patient will be monitored closely as an outpatient. As above, patient will be discharged home with a Rodriguez catheter for the next week. We will continue Lovenox therapy for now. 3. Symptomatic anemia secondary to urinary blood loss-the patient required blood transfusions initially upon admission. Ultimately, patient's blood level stabilized. Hematuria at time of discharge, had essentially resolved. We will follow this as an outpatient. 4. Anticoagulation-this proved to be a significant problem. The patient has a mechanical valve, thus anticoagulation was warranted. Unfortunately, this also exacerbated his hematuria. Patient's Lovenox was held 24 hours prior to surgical intervention and approximately 20 hours post intervention. Lovenox has since been resumed. We will continue this as an outpatient. If the patient's condition stabilizes, we will plan to resume Coumadin in the next week to 2 weeks. 5. Profound weakness-this likely is secondary to a combination of anemia and deconditioning in the setting of recent surgical intervention. We will encourage increasing activity over the next several weeks. 6. Hypertension-patient's blood pressure remained reasonably controlled with verapamil therapy. His losartan and hydrochlorothiazide remained held while hospitalized. We will follow this as an outpatient. 7. Reflux disease with possible esophageal stricture-patient is having modest symptoms. At this point, the risk of intervention outweighs the benefits. For now, we will treat patient's anemia and urinary issues as above. With time, we will plan to pursue an EGD and possible dilation. 8. Left lateral upper leg hematoma-this was a result of a fall. The patient required intermittent pain medications while hospitalized. Patient will be discharged home on Percocet to be used as needed. I have asked patient to use the least amount of effective medication. 9. Hypertriglyceridemia/paroxysmal atrial fibrillation-patient was maintained on home medications. This will be followed as an outpatient. DISCHARGE CONDITION: Good. DISPOSITION: Discharge to home. MEDICATIONS: 1. Percocet 5/325 1-2 tablets every 4 hours as needed. 2. Bactrim DS 1 tablet every 12 hours for the next 5 days. 3. Lexapro 5 mg daily. 4. Omeprazole 40 mg daily. 5. Gemfibrozil 600 mg twice daily. 6. Temazepam 30 mg at bedtime as needed. 7. Nitroglycerin as needed. 8. Metrogel applied topically twice daily. 9. Vitamin C 500 mg at bedtime. 10. Clindamycin topical as needed. 11. Vitamin B complex daily. 12. Zyrtec 10 mg daily. 13. Verapamil 180 mg twice daily. 14. Metamucil daily. 15. Lovenox 100 mg every 12 hours. 16. Atorvastatin 20 mg at bedtime. 17. Finacea 15% gel applied twice daily. FOLLOWUP: The patient is to follow up with me in approximately 1-2 weeks. The patient to follow up with Dr. Amos as arranged. cc: Geovani Diaz MD
--- NOTE | 2016-09-24 15:24 | OPERATIVE NOTE ---
PROCEDURE DATE: 08/21/2016 SURGEON: Yasmani Amos MD PREOPERATIVE DIAGNOSIS: Gross hematuria, clots. PROCEDURE: 1. Cystoscopy. 2. Clot evacuation. 3. Fulguration of bleeding. INDICATIONS: A 76-year-old male who is on chronic anticoagulation secondary to history of artificial valve and atrial fibrillation. He underwent transurethral resection of prostate secondary to retention. He has had intermittent bleeding since then. He re-presented with hematuria with clots and retention. He was managed conservatively with continuous bladder irrigation for several days, but per nursing staff and me personally, irrigation continues to have clots. He presents for cystoscopy with clot evacuation and fulguration of bleeding. FINDINGS: Multiple small clots that were successfully evacuated. There was no evidence of definitive bleeding, but there was generalized oozing in the prostatic fossa at the level of bladder neck. FINDINGS: After obtaining informed consent, patient was brought to the operative room. Perioperative antibiotics and general laryngeal mask anesthesia were administered. He was placed in lithotomy position, prepped and draped in sterile fashion. A 21-B[place]ian rigid cystoscope was used to gain access to the bladder, which was then examined in systematic fashion. He had TUR defect. He had just very mild generalized oozing in the prostatic fossa, but no discrete arterial or even significant venous bleeder. His bladder was examined and had multiple small clots, likely 150-200 g. No large clots or well-organized clot. We then used a Estrada syringe to remove the clots. Repeat local revealed no evidence of residual clots. Following that, I used cautery to fulgurate the prostatic fossa, which at the conclusion of the case had no evidence of active bleeding whatsoever. The bladder was emptied, resectoscope was removed and reinserted and once again, there was no evidence of active bleeding. He had a 22-B[place]udian three-way Rodriguez catheter placed, with return of clear urine and connected to normal saline and continuous bladder irrigation. He was then extubated and taken to PACU for further recovery. ESTIMATED BLOOD LOSS: 10 mL. COMPLICATIONS: None. DISPOSITION: To PACU and subsequently floor for observation with Rodriguez catheter connected to continuous bladder irrigation. cc: MD Geovani Reyna MD
== END 2016-08-23 21:04 | disposition home or self-care (01) ==
LOC: DIRADM 18:16 → 4N 18:29
PROVIDERS: ADMIT Internal Medicine; ATTEND Internal Medicine

== ENCOUNTER 2016-08-28 18:41 | Inpatient (IN) ==
[2016-08-28 20:15] LABS: MANUAL DIFF NEEDED? NO
[2016-08-28 20:29] LABS: BASO% 0.4 % (0.0-0.8); EOS# 0.12 X1000 (0.0-0.7); EOS% 1.6 % (0.0-10.0); HEMATOCRIT 25.8 % (42.0-52.0); IMM GRAN# 0.02 X1000 (0.0-0.04); IMM GRAN% 0.3 % (0.0-0.5); LYMPH# 0.94 X1000 (1.2-3.4); LYMPH% 12.6 % (20.5-51.1); MCH 26.9 PG (27-31); MCV 86.9 FL (81-99); MONO# 0.92 X1000 (0.11-0.59); MONO% 12.3 % (1.7-9.3); MPV 9.2 FL (7.4-10.4); NEUT% 72.8 % (42.2-75.2); PLT 290 X1000 (130-400); RBC 2.97 XMIL (4.7-6.1)
[2016-08-28 20:46] LABS: AGAP 12; ALKALINE PHOSPHATASE 55 U/L (32-122); BUN 11 mg/dL (8-22); CALCIUM 8.7 mg/dL (8.8-10.2); CHLORIDE 103 mmol/L (98-107); COSMO 276; GOT 14 U/L (10-34); GPT 9 U/L (10-44); POTASSIUM 4.3 mmol/L (3.5-5.1); SODIUM 138 mmol/L (136-145); TCO2 23 mmol/L (25-35); TOTAL BILIRUBIN 0.26 mg/dL (0.20-1.00); TOTAL PROTEIN 6.2 g/dL (6.3-8.3)
[2016-08-28] MEDS ORDERED: NITROGLYCERIN SL PRN (21:19)
[2016-08-28] MEDS ORDERED: CLEOCIN T 1% TOP PRN (21:19)
[2016-08-28] MEDS ORDERED: TYLENOL PO PRN (21:19)
[2016-08-28] MEDS ORDERED: PATIENT'S OWN MED TOP SCH (21:19)
--- NOTE | 2016-08-28 21:57 | HISTORY AND PHYSICAL ---
PRIMARY CARE PHYSICIAN: Dr. Geovani Diaz. CHIEF COMPLAINT: Urinary retention, gross hematuria. HISTORY OF PRESENT ILLNESS: 76-year-old white male with a very complicated past medical history, presents for evaluation of urinary retention, weakness, and persistent hematuria. Current history of present illness began on 07/23/2016. At that time, patient underwent a transurethral resection of the prostate. The patient tolerated this procedure quite well. Postoperatively, Lovenox 1 mg/kg q.12 hours was initiated. Unfortunately, since that time, patient has developed considerable postoperative complications including urinary retention, gross hematuria, and symptomatic anemia. The patient has been admitted on several occasions. He has required 2 surgical interventions with cauterization of the bladder. Most recently, patient was admitted on 08/14/2016. Patient required transfusions of packed red blood cells to maintain adequate hemoglobin, hematocrit. The patient ultimately was discharged home on 08/23/2016. At that time patient's urine was clear. Since discharge, unfortunately, patient has developed considerable hematuria. Patient has been seen in Dr. Amos's office yesterday and today. Attempts were made to treat as an outpatient with Rodriguez catheter changes. Unfortunately this has proved unsuccessful. In addition, the patient failed a voiding trial. This evening patient again developed urinary retention with blood clot formation. Because of his persistent urinary retention and significant blood loss, patient will be admitted to the hospital for full evaluation and management. Of note, patient denies fevers, chills, nausea, vomiting, shortness of breath, or chest discomfort. He does complain of profound fatigue. PAST MEDICAL HISTORY: 1. Abnormal electrocardiogram with incomplete left bundle-branch block. 2. Status post bilateral cataract removals. 3. Cervical spine pain. 4. Ischemic heart disease. 5. Diverticulosis. 6. Chronic lower extremity edema with venous stasis. 7. Reflux disease. 8. Hypertension. 9. Hypertriglyceridemia. 10. Hyperlipidemia. 11. Hypogonadism. 12. Anticoagulation. 13. Erectile dysfunction. 14. Mitral valve disorder status post mechanical valve replacement in 2002. 15. Nephrolithiasis. 16. Obstructive sleep apnea. 17. History of benign thyroid nodule. 18. Osteoarthritis. 19. Paroxysmal atrial fibrillation. 20. Retinal edema. 21. History of multiple actinic keratoses, seborrheic keratoses, and basal cell carcinomas. 22. Left eye strabismus. 23. Insomnia. 24. Lower extremity varicosities. CURRENT MEDICATIONS: 1. Atorvastatin 20 mg at bedtime. 2. B complex vitamin daily. 3. Clindamycin gel applied twice daily as needed. 4. Lexapro 5 mg daily. 5. Finacea 15% gel apply twice daily. 6. Lopid 600 mg twice daily. 7. Metamucil twice daily. 8. Metronidazole cream twice daily. 9. Nitrostat as needed. 10. Temazepam 30 mg at bedtime as needed. 11. Tramadol as needed. 12. Verapamil ER 180 mg twice daily. ALLERGIES: Patient states he is allergic to penicillin and phenolphthalein. SOCIAL HISTORY: Patient denies tobacco, alcohol or illicit drug use. 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 He exercises intermittently. FAMILY HISTORY: Patient's father passed at age 82 secondary to complications of surgical correction of an abdominal aortic aneurysm. Patient's mother passed at age 63 secondary to complications of lung cancer. REVIEW OF SYSTEMS: A 12 point review of systems was performed. Pertinent positives and negatives noted in history present illness. PHYSICAL EXAMINATION: VITAL SIGNS: Temperature 98.0 degrees, heart rate 72, respirations 18, blood pressure is 140/59. GENERAL: Well nourished, well developed, no acute distress. HEENT: Normocephalic, atraumatic. Pupils equal, round, reactive to light. Extraocular muscles intact. Sclerae anicteric. [place] conjunctivae. Oral and nasopharynx clear without exudate. NECK: Supple. No lymphadenopathy. No thyromegaly. No bruits auscultated. CARDIOVASCULAR: Regular rate and rhythm. No significant rubs or gallops. Patient has a 3/6 systolic murmur at the apex. A mechanical click is noted. PULMONARY: Clear to auscultation bilaterally. ABDOMEN: Soft, nontender, nondistended. Positive bowel sounds. EXTREMITIES: Moves all extremities well. No significant clubbing, cyanosis, or edema. NEUROLOGIC: Cranial nerves 2 through 12 grossly intact. Motor and sensory grossly intact. PSYCHOLOGIC: Examination is appropriate. LABORATORY DATA: White blood cell count 7.48, hemoglobin 8.0, hematocrit 25.8, platelet count 290,000. Sodium 138, potassium 4.3, chloride 103, bicarb 23, BUN 11, creatinine 1.0, glucose 108, calcium 8.7, total bilirubin 0.26, total protein 6.2, albumin 4.0, alkaline phosphatase 55, AST 14, ALT 9. ASSESSMENT AND PLAN: 76-year-old white male with a complicated past medical history presents for evaluation of recurrent hematuria with associated urinary retention. Unfortunately, we have had difficulty controlling his postoperative hematuria. Patient has a mechanical valve, thus anticoagulation is imperative. Unfortunately, upon starting Lovenox, patient quickly develops hematuria. The patient will be admitted to the hospital for full evaluation and management of this condition. 1. Admit to [address] [place] [address]. 2. Acute urinary retention-this likely is secondary to a combination of bladder laxity and clot obstruction. We will consult Dr. Amos. We will plan to start 3-way irrigation. We will follow patient's clinical course closely. 3. Hematuria with clot formation-at this point, patient continues to require anticoagulation in the setting of a mechanical valve. I have discussed case with Dr. Amos. We will hold Lovenox for tonight only. We will resume therapy in the morning. We will consult hematology for another opinion to determine if any underlying hematologic abnormality could be playing a role. We will follow this. 4. Symptomatic anemia-patient's hemoglobin and hematocrit continued to slowly drift downward. We will transfuse the patient 1 unit of packed red blood cells. This will be followed. 5. Anticoagulation-as above, with a mechanical valve, this is imperative. We will hold Lovenox tonight, but resume a slightly lesser dose of 60 mg q.12 hours in the morning. As above, we will consult hematology for a 2nd opinion to rule out underlying coagulopathy. 6. Profound weakness-this likely is multifactorial. We will transfuse patient a unit of blood as noted above. We will encourage activity. 7. Hypertension-we will continue patient on his home regimen. 8. Reflux disease-we will continue omeprazole therapy. Once able, patient likely will require an EGD as he is having some symptoms of dysphagia. 9. Hypertriglyceridemia/paroxysmal atrial fibrillation-we will remain aware. 10. Fluid, electrolytes, nutrition. We will monitor electrolytes. Saline lock IV. Cardiac prudent diet. 11. Prophylaxis. We will reinitiate Lovenox in the morning. cc: Geovani Diaz MD
[2016-08-28] MEDS: SEPTRA DS PO SCH (23:31)
[2016-08-28] MEDS: PERCOCET-5 PO PRN (23:31)
[2016-08-28] MEDS: ISOPTIN SR PO SCH (23:32)
[2016-08-28] MEDS: LIPITOR PO SCH (23:33)
[2016-08-28] MEDS: VITAMIN C PO SCH (23:33)
[2016-08-28] MEDS: LOPID PO SCH (23:34)
[2016-08-28] MEDS: METROCREAM TOP SCH (23:36)
[2016-08-28] MEDS ORDERED: NS 500 ML IV SCH (23:41)
[2016-08-29] MEDS: RESTORIL PO PRN (00:13)
--- NOTE | 2016-08-29 04:24 | PROVIDER DOCUMENTATION ---
This chart was entered by Albina Auguste Scribe, acting as scribe for Олег De La Torre MD. HPI-Male Problem - General Chief Complaint: Male Stated Complaint: CATHATER PAIN Time Seen by Provider: 08/28/16 19:28 Source: patient Allergies/Adverse Reactions: Patient Allergies Allergy/AdvReac Type Severity Reaction Status Date / Time Penicillins Allergy fever Verified 08/25/16 13:31 Home Medications: Home Medication List Medication Instructions Recorded Confirmed Last Taken Type Gemfibrozil [Lopid] 600 mg PO BID 01/17/15 08/25/16 08/25/16 History Metronidazole 0.75% Cream 1 applicatn TOP BID 01/17/15 08/25/16 08/25/16 History [Metrocream 0.75%] Nitroglycerin [Nitroquick] 0.4 mg SL PRN PRN 01/17/15 08/25/16 Unknown History Temazepam [Restoril] 30 mg PO PRN PRN 01/17/15 08/25/16 1 Day Ago History Ascorbate Calcium [Vitamin C] 500 mg PO HS 10/05/15 08/25/16 08/25/16 History Clindamycin Phosphate 60 gm TP PRN PRN 10/05/15 08/25/16 07/29/16 07:00 History Cetirizine HCl [Zyrtec] 10 mg PO DAILY 07/16/16 08/25/16 08/25/16 History Psyllium Husk [Metamucil] 1 each PO DAILY 07/16/16 08/25/16 08/25/16 History Verapamil HCl [Verelan] 180 mg PO BID 07/16/16 08/25/16 08/25/16 History Vitamin B Complex 1 each PO DAILY 07/16/16 08/25/16 08/25/16 History Enoxaparin [Lovenox] 100 mg SUBQ Q12H syringe 08/10/16 08/25/16 08/25/16 09:00 Rx ATORVAstatin [Lipitor] 20 mg PO QHS #0 08/23/16 08/25/16 08/24/16 Rx Escitalopram [Lexapro] 5 mg PO QAM tablet 08/23/16 08/25/16 08/25/16 Rx Omeprazole [Prilosec] 40 mg PO DAILY@0700 #30 capsule 08/23/16 08/25/16 Rx Oxycodone/APAP 5 mg/325 mg 1 - 2 each PO Q4H PRN PRN #30 08/23/16 08/25/1608/25 12:15 Rx [Percocet-5] tablet Patient's Own Med 0 each TOP BID misc 08/23/16 08/25/16 08/25/16 Rx Sulfamethoxazole/Tmp D.s. [Septra 1 each PO Q12H #10 tablet 08/23/16 08/25/16 Rx Ds] - History of Present Illness-Male Nature of Presenting Problem: 76 Y/O M presents to ED with Male . Pt states that he recently got a Tamez catheter placed in today by and today this afternoon the cath was filled with clots, pt states that he has had to irrigate it twice at today, and states he hasn't been able to clear it again. Pt states that that he has a 22 cath placed in, and has been having cath issues since his prostate surgery on , Pt denies all other symptoms. Location of Complaint: reports: groin Radiation: reports: none Quality of Pain: reports: aching Severity in ED: reports: severe Onset/Duration: reports: this afternoon Timing: reports: still present Urinary Symptoms: reports: no symptoms Associated Symptoms: reports: denies symptoms Similar Symptoms Previously?: Yes Recently seen or treated by another doctor?: Yes Review of Systems - Adult - REVIEW OF SYSTEMS - ADULT Constitutional: denies: chills, fever Eyes: reports: no symptoms reported Ears, Nose, Mouth & Throat: reports: no symptoms reported Cardiovascular: reports: no symptoms reported Respiratory: reports: no symptoms reported Gastrointestinal: reports: no symptoms reported Genitourinary: reports: other (Tamez catheter needing irrigation). denies: dysuria, discharge Musculoskeletal: reports: no symptoms reported Integumentary: reports: no symptoms reported Neurological: reports: no symptoms reported Psychiatric: reports: no symptoms reported Endocrine: reports: no symptoms reported Hematologic/Lymphatic: reports: no symptoms reported Allergic/Immunologic: reports: no symptoms reported All Other Systems: Reviewed and Negative Past History - Adult - PAST MEDICAL HISTORY-ADULT Review of Records: reports: Old Records Reviewed, Nursing Assessment Review, Medications Reviewed, Social history reviewed & non-contributory. Major Childhood Illnesses: reports: denies history Cardiovascular: reports: heart valve problem Respiratory: reports: denies history Gastrointestinal: reports: denies history Obstetrical/Gynecological: reports: denies history Genitourinary: reports: denies history Musculoskeletal: reports: denies history Neurological: reports: denies history Endocrine/Immune: reports: denies history Other Conditions: reports: denies history - IMMUNIZATION STATUS Childhood Immunizations: See Nurse Assessment Flu Vaccine: See Nurse Assessment - FAMILY HISTORY Family History: reviewed, not pertinent Physical Exam-General - CONSTITUTIONAL General Appearance: alert, moderate distress - EYES Eyes: PERRL/EOMI, pink conjunctivae - HEAD, EARS, NOSE, MOUTH & THROAT HENMT: moist mucous membranes, normal ENT inspection, TMs normal, pharynx normal - NECK Neck: full range of motion, supple, normal inspection - RESPIRATORY Respiratory: lungs clear, normal breath sounds - CARDIOVASCULAR Cardiovascular: regular rate, rhythm, no edema, no gallop - GASTROINTESTINAL (ABDOMEN) Abdominal Exam: non tender, soft - GENITOURINARY Male Genitalia: other (tamez cath 22 placed in) - LYMPHATIC Lymphatic: no adenopathy - MUSCULOSKELETAL Back Exam: normal inspection Extremity: normal range of motion, non-tender - SKIN Integumentary: normal color, normal turgor - PSYCHIATRIC Psych/Mental Status: normal mood/affect, normal thought content, normal thought process, oriented x 3 Progress - PLAN OF CARE/RESULTS Progress/Plan/Lab Results: Laboratory Results - last 24 hr 08/28/16 08/28/16 20:05 20:05 WBC 7.48 RBC 2.97 L Hgb 8.0 L Hct 25.8 L MCV 86.9 MCH 26.9 L MCHC 31.0 L RDW Std Deviation 14.3 Plt Count 290 MPV 9.2 Immature Gran % (Auto) 0.3 Neut % (Auto) 72.8 Lymph % (Auto) 12.6 L Steele % (Auto) 12.3 H Eos % (Auto) 1.6 Baso % (Auto) 0.4 Immature Gran # (Auto) 0.02 Neut # (Auto) 5.45 Lymph # (Auto) 0.94 L Steele # (Auto) 0.92 H Eos # (Auto) 0.12 Baso # (Auto) 0.03 Sodium 138 Potassium 4.3 Chloride 103 Carbon Dioxide 23 L Anion Gap 12 BUN 11 Creatinine 1.0 Estimated GFR/1.73 m2 > 60 BUN/Creatinine Ratio 11 Glucose 108 H Calculated Osmolality 276 Calcium 8.7 L Total Bilirubin 0.26 AST 14 ALT 9 L Alkaline Phosphatase 55 Total Protein 6.2 L Albumin 4.0 Globulin 2.2 Albumin/Globulin Ratio 1.8 Orders Category Date Time Status Admit - [facility] Routine AdmDCTranf 08/28/16 21:19 Ordered Activity - Strict Bedrest ORDERED Care 08/28/16 21:19 Active IV Insertion ONCE Care 08/28/16 21:19 Active Intake and Output-Strict ORDERED Care 08/28/16 21:19 Active Notify MD if DIRECTED Care 08/28/16 21:19 Active Nursing- MD Consult Request ROUTINE Care 08/28/16 21:19 Active Vital Signs Order ROUTINE Care 08/28/16 21:19 Active Z-Document. for Tele Applied ORDERED Care 08/28/16 21:19 Completed Physician/Provider Consults Routine Cons 08/28/16 21:19 Ordered Heart Healthy Diet Diet 08/28/16 20:00 Active CBC WITH DIFF [HEME] Routine Lab 08/29/16 06:00 Ordered CBC WITH ELECTRONIC DIFF [HEME] Stat Lab 08/28/16 20:05 Completed CMP [COMPREHENSIVE METABOLIC PANEL] [CHEM] Stat Lab 08/28/16 20:05 Completed ATORVAstatin [Lipitor] Med 08/28/16 21:19 Active 20 mg PO QHS Acetaminophen [Tylenol] Med 08/28/16 21:19 Active 650 mg PO Q4H PRN PRN Ascorbic Acid [Vitamin C] Med 08/28/16 21:19 Active 500 mg PO HS Cetirizine [Zyrtec] Med 08/29/16 09:00 Active 10 mg PO DAILY Clindamycin 1% Topical Gel [Cleocin T 1% Gel] Med 08/28/16 21:19 Active 60 gm TOP PRN PRN Cyanocobalamin/FA/Pyridoxine [Foltx] Med 08/29/16 09:00 Active 1 each PO DAILY Escitalopram [Lexapro] Med 08/29/16 09:00 Active 5 mg PO QAM Gemfibrozil [Lopid] Med 08/28/16 21:19 Active 600 mg PO BID Metronidazole 0.75% Cream [Metrocream 0.75%] Med 08/28/16 21:19 Active 0 gm TOP BID Nitroglycerin Sl [Nitroglycerin] Med 08/28/16 21:19 Active 0.4 mg SL PRN PRN Omeprazole [Prilosec] Med 08/29/16 07:00 Active 40 mg PO DAILY@0700 Oxycodone/APAP 5 mg/325 mg [Percocet-5] Med 08/28/16 21:19 Active 1 - 2 each PO Q4H PRN PRN Patient's Own Med Med 08/28/16 21:19 Pending 1 each TOP BID Psyllium Husk [Metamucil] Med 08/29/16 09:00 Active 1 each PO DAILY Sulfamethoxazole/Tmp D.s. [Septra Ds] Med 08/28/16 21:19 Active 1 each PO Q12H Temazepam [Restoril] Med 08/28/16 21:19 Active 30 mg PO HS PRN PRN Verapamil S.r. [Isoptin Sr] Med 08/28/16 21:19 Active 180 mg PO BID Telemetry [OM.EQ] Routine Oth 08/28/16 21:19 Active Transfer/Admit Order [TRANSFER] Routine Transfer 08/28/16 19:59 Completed Result Diagrams: 08/28/16 20:05 08/28/16 20:05 Departure - Departure Date of Disposition Decision: 08/28/16 Time of Disposition Decision: 21:00 DIAGNOSIS: Hematuria, S/P TURP (status post transurethral resection of prostate), long-term current use of anticoagulant Disposition: ADMITTED INPATIENT 09 Certified Medical Emergency: Emergent Condition: Good - Critical Care Note This patient required my direct & personal management of CC.: No This chart was documented by the indicated scribe, (Albina Auguste Scribe) and accurately reflects the services I performed and decisions made by me, Олег De La Torre MD, as attested by the provider's signature.
[2016-08-29 05:53] LABS: MANUAL DIFF NEEDED? NO
[2016-08-29 06:07] LABS: BASO% 0.5 % (0.0-0.8); EOS# 0.22 X1000 (0.0-0.7); EOS% 3.7 % (0.0-10.0); HEMATOCRIT 26.8 % (42.0-52.0); HEMOGLOBIN 8.3 g/dL (14.0-18.0); IMM GRAN# 0.02 X1000 (0.0-0.04); IMM GRAN% 0.3 % (0.0-0.5); LYMPH# 1.53 X1000 (1.2-3.4); LYMPH% 25.5 % (20.5-51.1); MCH 26.5 PG (27-31); MCV 85.6 FL (81-99); MONO# 0.77 X1000 (0.11-0.59); MONO% 12.9 % (1.7-9.3); MPV 9.5 FL (7.4-10.4); NEUT% 57.1 % (42.2-75.2); PLT 267 X1000 (130-400); RBC 3.13 XMIL (4.7-6.1)
[2016-08-29] MEDS: PRILOSEC PO SCH (06:25)
[2016-08-29] MEDS: METAMUCIL PO SCH (08:55)
[2016-08-29] MEDS: LEXAPRO PO SCH (08:55)
[2016-08-29] MEDS: SEPTRA DS PO SCH ×2 (08:55→20:51)
[2016-08-29] MEDS: LOPID PO SCH ×2 (08:55→20:51)
[2016-08-29] MEDS: FOLTX PO SCH (08:55)
[2016-08-29] MEDS: ZYRTEC PO SCH (08:55)
[2016-08-29] MEDS: LOVENOX SUBQ SCH ×2 (08:55→20:52)
[2016-08-29] MEDS: ISOPTIN SR PO SCH ×2 (08:55→20:51)
[2016-08-29] MEDS: METROCREAM TOP SCH ×2 (08:57→21:57)
--- NOTE | 2016-08-29 11:31 | PROGRESS NOTE ---
DATE: 08/29/2016 SUBJECTIVE: Patient was admitted yesterday with urinary retention, gross hematuria, and symptomatic anemia. Unfortunately, patient has been admitted on several occasions recently with similar complaints. The symptoms began after transurethral resection of the prostate. Because of his need for anticoagulation in the setting of a mechanical valve, he has experienced persistent blood loss from surgical intervention. Overnight, patient did reasonably well. A 3-way catheter with irrigation was placed and initiated. This morning, patient states he feels reasonably well. He was transfused 1 unit of packed red blood cells last night. He denies fevers, chills, nausea, vomiting, shortness of breath, or chest discomfort. He remains very weak. OBJECTIVE: Vital Signs: Maximum temperature 98.1 degrees, heart rate 57 to 72, respirations 16 to 18, blood pressure 129 to 154 over 59 to 69. General: Well nourished, well developed, in no acute distress. Cardiovascular: Regular rate and rhythm. No significant murmurs, rubs, or gallops. A mechanical click is noted. Pulmonary: Clear to auscultation bilaterally. Abdomen: Soft, nontender, nondistended. Positive bowel sounds. Extremities: Moves all extremities well. No significant clubbing or cyanosis. Patient has 1+ lower extremity edema on the left, and trace on the right. Dermatologic: Evaluation reveals no evidence of rash. A resolving left hip hematoma is noted. LABORATORY DATA: White blood cell count 5.99, hemoglobin 8.3, hematocrit 26.9, and platelet count is 267,000. ASSESSMENT AND PLAN: 1. Acute urinary retention - This is likely secondary to a combination of lateral laxity/primary urinary retention and clot obstruction. Dr. Amos has been consulted. A 3-way catheter with irrigation has been initiated. We will evaluate patient's hematuria as described below. 2. Hematuria with clot formation - I suspect this is secondary to underlying Lovenox use. As described above, the risk of discontinuing Lovenox outweighs the potential benefits. Yesterday, we held Lovenox overnight. We will re-initiate a slightly lower dose of Lovenox at 60 mg q.12 hours. I have discussed the case with Dr. Proctor and she will be consulted. We will determine if further medical intervention is warranted. At this point, we will continue symptomatic management and supportive care. 3. Symptomatic anemia - The patient was transfused 1 unit of packed red blood cells overnight. The patient's hemoglobin and hematocrit increased slightly. For now, we will follow serial examinations. 4. Anticoagulation - As above, it is imperative to continue anticoagulation in the setting of a mechanical valve. We will reinitiate Lovenox at a slightly lesser dose of 60 mg subcutaneously q.12 hours. We will discuss this further with Dr. Proctor. Once able, we will increase this back to 8 mg/kg q.12 hours. 5. Profound weakness - This likely is multifactorial. We will treat patient's anemia as described above. We will encourage activity once able. 6. Hypertension - For now, we will continue his current home regimen. 7. Reflux disease - We will continue omeprazole therapy. We will remain aware the patient has had some symptoms of dysphagia recently. At this point, the risk of surgical intervention outweighs the benefits. 8. Hypertriglyceridemia/paroxysmal atrial fibrillation - We will remain aware and continue his home medications. 9. Disposition - At this point, patient continues to require shelter care in a hospital setting. We will plan discharge home once appropriate. cc: Geovani Diaz MD
[2016-08-29] MEDS: B & O 15A SUPP PR PRN (16:57)
[2016-08-29] MEDS: LIPITOR PO SCH (20:51)
[2016-08-29] MEDS: VITAMIN C PO SCH (20:52)
[2016-08-29] MEDS: PERCOCET-5 PO PRN (23:01)
[2016-08-30] MEDS: RESTORIL PO PRN ×2 (00:38→22:33)
[2016-08-30 05:41] LABS: MANUAL DIFF NEEDED? NO
[2016-08-30] MEDS: PRILOSEC PO SCH ×2 (05:45→06:02)
[2016-08-30 06:05] LABS: INR 1.02; PROTIME 10.7 Seconds (9.2-11.7)
[2016-08-30 07:15] LABS: BASO% 0.8 % (0.0-0.8); EOS# 0.28 X1000 (0.0-0.7); EOS% 4.4 % (0.0-10.0); HEMATOCRIT 26.9 % (42.0-52.0); HEMOGLOBIN 8.4 g/dL (14.0-18.0); IMM GRAN# 0.02 X1000 (0.0-0.04); IMM GRAN% 0.3 % (0.0-0.5); LYMPH# 1.68 X1000 (1.2-3.4); LYMPH% 26.7 % (20.5-51.1); MCH 26.7 PG (27-31); MCHC 31.2 g/dL (33-37); MCV 85.4 FL (81-99); MONO# 1.03 X1000 (0.11-0.59); MONO% 16.3 % (1.7-9.3); MPV 9.8 FL (7.4-10.4); NEUT% 51.5 % (42.2-75.2); PLT 264 X1000 (130-400); RBC 3.15 XMIL (4.7-6.1)
[2016-08-30] MEDS: ZYRTEC PO SCH (08:55)
[2016-08-30] MEDS: ISOPTIN SR PO SCH ×2 (08:56→20:43)
[2016-08-30] MEDS: FOLTX PO SCH (08:56)
[2016-08-30] MEDS: LOVENOX SUBQ SCH ×2 (08:56→20:43)
[2016-08-30] MEDS: LOPID PO SCH ×2 (08:56→20:43)
[2016-08-30] MEDS: SEPTRA DS PO SCH ×2 (08:56→20:43)
[2016-08-30] MEDS: LEXAPRO PO SCH (08:56)
[2016-08-30] MEDS: METAMUCIL PO SCH (08:56)
--- NOTE | 2016-08-30 10:27 | CONSULTATION ---
DATE OF CONSULTATION: 08/29/2016 CONSULTATION REQUESTED BY: Dr. Diaz. REASON FOR CONSULTATION: Consultation is for persistent hematuria. HISTORY OF PRESENT ILLNESS: Mr. Nolasco is a 76-year-old, male who has been admitted for persistent hematuria. The patient underwent a transurethral resection of the prostate on 07/23/2016. He tolerated this procedure quite well. Postoperatively, the patient has had some complications including urinary retention, gross hematuria, and symptomatic anemia. The patient has a mechanical heart valve and requires lifelong anticoagulation. He immediately postoperative was receiving Lovenox 1 mg/kg q.12 hours. He has been admitted on several occasions for the previously mentioned issues. He has required 2 surgical interventions with cauterization of the bladder. He has also required packed red blood cells in order to maintain an adequate hemoglobin and hematocrit. The patient was most recently admitted to the hospital on 08/23. He has now been readmitted for hematuria. We have been consulted due to his consistent bleeding issues. The patient continues to have a Rodriguez in place due to failing voiding trials previously. PAST MEDICAL HISTORY: 1. Cataract. 2. Cervical spine pain. 3. Ischemic heart disease. 4. Diverticulosis. 5. Chronic edema with venous stasis. 6. Acid reflux disease. 7. Hypertension. 8. Hyperlipidemia. 9. Hypogonadism. 10. 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 11. Obstructive sleep apnea. 12. Osteoarthritis. 13. Paroxysmal atrial fibrillation. PAST SURGICAL HISTORY: Includes valve replacement as previously discussed. Patient has also had cataract surgery and then most recently had the TURP. SOCIAL HISTORY: Patient denies any tobacco, alcohol, or illicit drug use. 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 His is with him. FAMILY HISTORY: His father at the age of 82 secondary to complications of surgery in order to correct an abdominal aortic aneurysm. Patient's mother at 63 due to lung cancer. REVIEW OF SYSTEMS: As per the HPI. All other systems are negative or noncontributory. PHYSICAL EXAMINATION: Vital Signs: Temperature is 97.9 degrees, heart rate 62 , O2 saturation is 97% on room air. Respirations 16. Blood pressure 129/65. General: This is a male lying in the hospital bed in no acute distress. HEENT: Head normocephalic, atraumatic. Eyes: Pupils equal, round, and reactive. Ears, nose, throat, neck, and mouth: Oral mucosa is normal. Trachea is midline. Gross auditory acuity is intact. Cardiovascular: Mechanical valve click is appreciated. Regular rate and rhythm. Respiratory: Chest is clear to auscultation bilaterally with normal respiratory effort. Gastrointestinal: Abdomen is soft and nondistended. Positive for bowel sounds. Musculoskeletal: No bony abnormalities noted. Extremities: Patient has chronic venous stasis changes. Neurologic: The patient is alert and oriented x3 with no focal motor deficits. Urologic: The patient has a Rodriguez in place and his Rodriguez bag is clear at this time. LABORATORY DATA AND STUDIES: White blood cells 5.99, hemoglobin 8.3, hematocrit 26.8, platelet count 267,000. PTT 28. Fibrinogen 328. D-dimer 0.97. Sodium 138, potassium 4.3, chloride 103, CO2 23, BUN 11, creatinine 1, glucose 108. ASSESSMENT/PLAN: 1. Persistent rosette hematuria after a transurethral resection of the prostate. The patient has a mechanical valve and requires anticoagulation. We agree that the patient should continue on Lovenox at a reduced dose of 60 mg every 12 hours. We will go ahead and also check a DIC panel as well as some coagulation testing to make sure there is no underlying bleeding issue. Also check anti-10a levels. Dr. Amos, urology, has been consulted as well. Amicar could be an option if bleeding were to start again. Currently, the Rodriguez bag is clear. 2. Mechanical valve. The patient will require some sort of anticoagulation. Lovenox as per above. Continue to monitor closely. 3. Hematuria. Urology consulted. 4. Symptomatic anemia. Monitor closely. He has required blood transfusions previously. Continue to transfuse as needed. Hemoglobin currently acceptable. 5. Profound weakness. This is likely multifactorial. Continue to transfuse as needed. I want to thank you for consulting us on Mr. Nolasco. We will continue to follow along and adjust our treatment plan per his hospital course. Dictated by RAIMUNDO Chaudhry for Chana Proctor MD cc: MD Geovani Wayne MD I have seen and examined Mr. Nolasco. I have discussed his case with Dr. Diaz and Dr. Amos. I agree with the above A/P. I have discussed extensively with the patient that he has no sign of a systemic bleeding disorder but rather a local bleeding problem likely related to increase fibrinolytic activity in the urinary tract. We discussed systemic treatment with Amicar and the risks of associated systemic thrombosis. I do not feel it is safe to proceed with systemic Amicar at this time unless he has life threatening bleeding. If local therapies are unsuccessful we will reconsider. Chana ROBLERO
--- NOTE | 2016-08-30 20:01 | PROGRESS NOTE ---
DATE: 08/30/2016 SUBJECTIVE: Mr. Nolasco reports good morning which is when I checked on him originally. Since morning rounds, he reports having to be irrigated several times and his urine turning red. He is hesitant about using intravenous Amicar secondary to concern for increased risk of clotting of his valve. OBJECTIVE: Vital Signs: Temperature 98.6 degrees, pulse 58, blood pressure 122/56. General: No acute distress. HEENT: Normocephalic, atraumatic. Abdomen: Nontender, nondistended. : 3-way Rodriguez catheter with nearly clear urine draining at the time of the evening rounds, no clots in the bag. PERTINENT LABORATORY: Hematocrit of 26.7. ASSESSMENT PLAN: A 76-year-old male with intermittent hematuria after original transurethral resection of the prostate which is quite challenging in a setting of his anticoagulation with Lovenox for artificial heart valve. I discussed with the patient that he may benefit from cystoscopy, clot evacuation, fulguration of bleeding and placement of suprapubic tube as he has failed voiding trials before. I have discussed with him that he may continue to have hematuria, but in light of intravenous aminocaproic acid being risky for his heart valve, we can try intravesical alum post procedure tomorrow. I have discussed with the patient that if we did not make sure that his clots were irrigated out, one of the risks with using alum is extremely hardened clot which would be difficult to extract and require intervention. He voiced understanding. I will also discussed the risks of the procedure including, but not limited to bleeding, infection, injury to the bladder, injury to adjacent structures, persistent bleeding as he has had and need for additional interventions. He voiced understanding and wants to proceed. PLAN: 1. I will hold his Lovenox tomorrow morning. 2. To operating room tomorrow morning for cystoscopy, clot evacuation, fulguration of bleeding, and placement of suprapubic tube with likely intravesical alum administration postoperatively. His questions were answered. cc: MD Geovani Reyna MD
[2016-08-30] MEDS: LIPITOR PO SCH (20:43)
[2016-08-30] MEDS: VITAMIN C PO SCH (20:43)
[2016-08-31 06:01] LABS: MANUAL DIFF NEEDED? NO
[2016-08-31 06:28] LABS: BASO% 0.4 % (0.0-0.8); EOS# 0.25 X1000 (0.0-0.7); EOS% 3.7 % (0.0-10.0); HEMATOCRIT 26.9 % (42.0-52.0); HEMOGLOBIN 8.4 g/dL (14.0-18.0); IMM GRAN# 0.02 X1000 (0.0-0.04); IMM GRAN% 0.3 % (0.0-0.5); LYMPH# 1.41 X1000 (1.2-3.4); LYMPH% 20.8 % (20.5-51.1); MCH 26.6 PG (27-31); MCHC 31.2 g/dL (33-37); MCV 85.1 FL (81-99); MONO# 1.04 X1000 (0.11-0.59); MONO% 15.4 % (1.7-9.3); MPV 9.6 FL (7.4-10.4); NEUT% 59.4 % (42.2-75.2); PLT 267 X1000 (130-400); RBC 3.16 XMIL (4.7-6.1)
--- NOTE | 2016-08-31 06:35 | PROGRESS NOTE ---
DATE: 08/30/2016 SUBJECTIVE: Initially this morning, the patient was evaluated and urine was noted to be clear, with 3-way irrigation. This afternoon, unfortunately, the patient has redeveloped significant hematuria. He is being treated with Lovenox therapy. He denies fevers, chills, nausea, vomiting, shortness of breath, or chest discomfort. OBJECTIVE: Vital Signs: T-max 98.6 degrees, heart rate 47-63, respirations 16-20, blood pressure 118 to 138 over 53 to 68. General: Well-nourished, well-developed, no acute distress. Cardiovascular: Regular rate and rhythm. No significant murmurs, rubs, or gallops. A mechanical click is identified. Pulmonary: Clear to auscultation bilaterally. Abdomen: Soft, nontender, nondistended. Positive bowel sounds. Extremities: Moves all extremities well. No significant clubbing, cyanosis, or edema. Dermatologic: Evaluation reveals no evidence of rash. LABORATORY DATA: White blood cell count 6.30, hemoglobin 8.4, hematocrit 26.9, platelet count 264,000. ASSESSMENT AND PLAN: 1. Acute urinary retention. As noted previously, this likely is secondary to a combination of bladder laxity and primary urinary retention with clot obstruction. I appreciate Dr. Amos's consultation. At this point, pursuing a suprapubic catheter is most appropriate. I agree with his current plan. With time, I hope and anticipate this can be reversed. We will follow. 2. Hematuria with clot formation. Patient will be treated with surgical intervention in the a.m. I agree that discontinuing the Rodriguez catheter may improve his condition secondary to mechanical irritation. We will follow this. Lovenox at present time is at 60 mg q.12 hours. We will increase this back to full dose as soon as possible. 3. Symptomatic anemia. Patient's hemoglobin and hematocrit are stable. We will follow. 4. Anticoagulation. As above, we will continue Lovenox therapy. We will follow along with Dr. Proctor. 5. Profound weakness. This likely is secondary to both blood loss anemia and deconditioning. We will remain aware. 6. Hypertension. The patient will be continued on his home regimen. 7. Reflux disease. We will continue omeprazole therapy. Once stable, we will consider an EGD with dilation secondary to his dysphagia. 8. Hypertriglyceridemia/paroxysmal atrial fibrillation. Will remain aware. 9. Disposition. At this point, the patient continues to require [facility] care in the hospital setting. We will plan discharge home once appropriate. cc: Geovnai Diaz MD
[2016-08-31] MEDS: PRILOSEC PO SCH (06:44)
--- NOTE | 2016-08-31 07:39 | PROGRESS NOTE ---
DATE: 08/31/2016 SUBJECTIVE: Mr. Nolasco had a good night overnight. He continues to have intermittent hematuria. He denies significant pain. OBJECTIVE: Vital Signs: T 98.4 degrees, P 51, BP 116/52. There is recorded urinary output of over 1100 mL. General: No acute distress. Abdomen: Nontender, nondistended. : Rodriguez catheter in place draining currently clear urine but there is some red in the bag. No clots visible. PERTINENT LABS: Hematocrit of 26.9. ASSESSMENT: A 76-year-old male, who has had a transurethral resection of prostate in the past and has intermittent gross hematuria with clots. He has not been taken in the past for cystoscopy, clot evacuation, and fulguration. The patient is agreeable to proceeding with cystoscopy with clot evacuation, fulguration of bleeding and placement of suprapubic tube with likely administration of alum intravesically postoperatively. Risks of the procedure including but not limited to, bleeding, infection, injury to the bladder, injury to adjacent structures, inability to stop the bleeding and need for additional interventions were explained. He voiced understanding and wants to proceed. PLAN: To the operating room this morning for cystoscopy, clot evacuation, fulguration of bleeding, placement of suprapubic tube. cc: MD Geovani Reyna MD
[2016-08-31] MEDS ORDERED: DIPRIVAN 1% ONE (08:24)
[2016-08-31] MEDS ORDERED: XYLOCAINE-MPF 2% ONE (08:24)
[2016-08-31] MEDS ORDERED: LEVAQUIN 500 MG/D5W 500 MG/100 ML IVPB ONE (08:25)
[2016-08-31] MEDS ORDERED: ROBINUL ONE ×2 (08:37→08:40)
[2016-08-31] MEDS ORDERED: KETAMINE ONE (09:00)
[2016-08-31] MEDS: MORPHINE ONE ×2 (09:45→09:52)
[2016-08-31] MEDS: [UNRECOGNIZED DRUG - OTHER] IRR PRN ×3 (12:06→16:11)
[2016-08-31] MEDS: METAMUCIL PO SCH (13:00)
[2016-08-31] MEDS: ZYRTEC PO SCH (13:00)
[2016-08-31] MEDS: LOPID PO SCH ×2 (13:00→20:13)
[2016-08-31] MEDS: FOLTX PO SCH (13:00)
[2016-08-31] MEDS: LEXAPRO PO SCH (13:01)
[2016-08-31] MEDS: ISOPTIN SR PO SCH ×2 (13:01→20:17)
[2016-08-31] MEDS: SEPTRA DS PO SCH ×3 (13:01→23:33)
--- NOTE | 2016-08-31 13:44 | PROGRESS NOTE ---
DATE: 08/31/2016 SUBJECTIVE: Mr. Nolasco is resting comfortably in his bed. He reports that he just got back from recovery from a surgical procedure earlier at this morning. He is in no acute distress. OBJECTIVE: Vital signs: Temperature 98.8 degrees, heart rate 61, respirations 15, blood pressure 130/70, O2 saturation 95% on room air. LABORATORY STUDIES: White blood cells 6.77, hemoglobin 8.4, hematocrit 26.9, platelets 267,000. Heparin anti XA 0.3 which is low. Von Willebrand's activity and factor 7 all within normal limits. PHYSICAL EXAM: Cardiovascular: S1, S2 heard. Mechanical click. Respiratory: Chest is essentially clear to auscultation bilaterally with normal respiratory effort. Gastrointestinal: Abdomen is soft and nondistended. Musculoskeletal: No obvious bony abnormalities. Extremities: The patient does have some trace bilateral extremity edema. ASSESSMENT AND PLAN: 1. Persistent rosette hematuria. Patient is status post TURP. He has just gone to surgery with Dr. Amos this morning for clot evacuation as well as fulguration of the bleeding. He had a suprapubic catheter placed as well. So far the drainage in the Rodriguez bag with the irrigation is clear. We will continue to monitor closely. Hemoglobin stable. 2. Mechanical valve replacement. The patient needs to be on anticoagulation. He is currently on Lovenox 60 mg q.12 which should be continued. 3. Anemia. Blood loss secondary to rosette hematuria. Hemoglobin stable as previously mentioned. Continue to monitor and transfuse p.r.n. Dictated by RAIMUNDO Chaudhry for Chana Proctor MD cc: MD Geovani Wayne MD I have seen and examined the patient. I agree with the above A/P. Chana ROBLERO
--- NOTE | 2016-08-31 18:34 | PROGRESS NOTE ---
DATE: 08/31/2016 SUBJECTIVE: This morning I attempted to see the patient, although he was in surgery per Dr. Amos. I discussed the patient's night with patient's . Overall, patient has done reasonably well with the exception of persistent hematuria. This evening the patient is postoperative. Overall, he is doing reasonably well. He is status post cystoscopy, clot evacuation, fulguration of bleeding, and placement of a suprapubic tube. Urine remains reasonably clear. He denies fevers, chills, nausea, vomiting, shortness of breath, or chest discomfort. OBJECTIVE: Vital signs: T-max 98.8 degrees, heart rate 61-69, respirations 10-16, blood pressure 140 to 147 over 61 to 69. General: Well nourished, well developed, in no acute distress. Cardiovascular: A regular rate and rhythm. No significant murmurs, rubs, or gallops. A mechanical click is noted. Pulmonary: Clear to auscultation bilaterally. Abdomen: Soft, nontender, nondistended. Positive bowel sounds. Extremities: Moves all extremities well. No significant clubbing, cyanosis, or edema. Dermatologic: Evaluation reveals no evidence of rash. LABORATORY DATA: White blood cell count 6.77, hemoglobin 8.4, hematocrit 26.9, platelet counts 267,000. ASSESSMENT AND PLAN: 1. Urinary retention-this likely is secondary to a combination of bladder laxity and clot obstruction. Patient is status post suprapubic catheter placement and fulguration of bleeding. With time, I anticipate voiding trials. For now, we will continue suprapubic catheter drainage. 2. Hematuria/clot formation-as above, patient is status post fulguration. I anticipate improvement status post repeat fulguration and removal of the Rodriguez catheter precipitating mechanical irritation. We will resume Lovenox tonight at 60 mg q.12 hours. We will anticipate increasing to 100 mg q.12 hours tomorrow. 3. Symptomatic anemia-patient's hemoglobin and hematocrit remain stable. We will continue to follow. 4. Anticoagulation-as above, patient is being treated with Lovenox therapy. We will increase to 100 mg q.12 hours tomorrow. We will monitor for bleeding. 5. Profound weakness-this is likely secondary to a combination of blood loss and deconditioning. We will continue to encourage activity as tolerated. 6. Hypertension-patient's blood pressure is slightly elevated today. For now, we will continue his home regimen. We will consider resuming hydrochlorothiazide and losartan in the near future. 7. Reflux disease-we will continue omeprazole therapy. He continues to experience intermittent dysphagia. At this point, he is not a good candidate for dilation. We will plan to pursue this as an outpatient. 8. Hypertriglyceridemia/paroxysmal atrial fibrillation-we will remain aware. 9. Disposition-at this point, patient continues to require prison care in a hospital setting. We will plan discharge home once appropriate. cc: Geovani Diaz MD
[2016-08-31] MEDS: VITAMIN C PO SCH (20:13)
[2016-08-31] MEDS: LIPITOR PO SCH (20:13)
[2016-08-31] MEDS: LOVENOX SUBQ SCH (20:17)
[2016-08-31] MEDS: PERIDEX MT SCH (20:17)
[2016-08-31] MEDS: FLOMAX PO SCH (20:25)
[2016-08-31] MEDS: PERCOCET-5 PO PRN (21:08)
[2016-08-31] MEDS: RESTORIL PO PRN (23:55)
[2016-09-01] MEDS: [UNRECOGNIZED DRUG - OTHER] IRR PRN ×3 (02:43→05:27)
[2016-09-01 05:16] LABS: MANUAL DIFF NEEDED? NO
[2016-09-01 05:19] LABS: BASO% 0.3 % (0.0-0.8); EOS# 0.15 X1000 (0.0-0.7); EOS% 1.6 % (0.0-10.0); HEMATOCRIT 28.7 % (42.0-52.0); HEMOGLOBIN 8.8 g/dL (14.0-18.0); IMM GRAN# 0.02 X1000 (0.0-0.04); IMM GRAN% 0.2 % (0.0-0.5); LYMPH# 0.97 X1000 (1.2-3.4); LYMPH% 10.1 % (20.5-51.1); MCHC 30.7 g/dL (33-37); MCV 84.9 FL (81-99); MONO# 1.17 X1000 (0.11-0.59); MONO% 12.2 % (1.7-9.3); MPV 9.7 FL (7.4-10.4); NEUT% 75.6 % (42.2-75.2); PLT 252 X1000 (130-400); RBC 3.38 XMIL (4.7-6.1)
[2016-09-01] MEDS: NORCO-5 PO PRN (05:27)
[2016-09-01] MEDS: PRILOSEC PO SCH ×2 (05:57→06:09)
[2016-09-01] MEDS: B & O 15A SUPP PR PRN (08:13)
[2016-09-01] MEDS: PERIDEX MT SCH ×2 (08:42→20:31)
[2016-09-01] MEDS: LEXAPRO PO SCH (08:42)
[2016-09-01] MEDS: ZYRTEC PO SCH (09:01)
[2016-09-01] MEDS: FOLTX PO SCH (09:01)
[2016-09-01] MEDS: ISOPTIN SR PO SCH ×2 (09:01→20:29)
[2016-09-01] MEDS: LOPID PO SCH ×2 (09:01→20:29)
[2016-09-01] MEDS: SEPTRA DS PO SCH ×2 (09:01→20:29)
[2016-09-01] MEDS: METAMUCIL PO SCH (09:02)
[2016-09-01] MEDS: LOVENOX SUBQ SCH ×2 (09:02→20:30)
[2016-09-01] MEDS: FLOMAX PO SCH ×2 (09:02→20:29)
--- NOTE | 2016-09-01 09:30 | PROGRESS NOTE ---
DATE: 09/01/2016 SUBJECTIVE: Mr. Nolasco is in some acute pain and discomfort today due to his suprapubic tube not draining at this time. His is at the bedside. The nurses are contacting Urology. The patient has also had some pressure overnight requiring some irrigation. OBJECTIVE: Vital Signs: Temperature is 98.6, heart rate 60, respirations 16, blood pressure 107/55, and O2 saturation 94% on room air. Cardiovascular: S1 and S2 are heard. Mechanical click. Respiratory: Chest is clear to auscultation bilaterally. Normal respiratory effort. Gastrointestinal: Abdomen is soft, nontender, and nondistended. Positive bowel sounds. Extremities: No edema noted. LABS: White blood cell count is 9.62, hemoglobin 8.8, hematocrit 28.7, and platelets 252. ASSESSMENT AND PLAN: 1. Persistent hematuria. Patient is status post urologic procedure yesterday with fulguration and cystoscopy. The patient also had the insertion of a suprapubic catheter. He has been restarted on his Lovenox postoperatively. Up until right prior to my visit, the patient and his report that he has had no bloody drainage through his suprapubic tube. He does have some blood now, though it is a small amount. 2. Mechanical valve. The patient requires anticoagulation. He is currently on 60 mg, which is a reduced dose, every 12 hours of Lovenox. The plans would be to increase to 1mg/kg once his hematuria has resolved. 3. Symptomatic anemia. The patient's hemoglobin is strong at 8.8. Continue to monitor. Continue to transfuse p.r.n.. 4. Pain and discomfort secondary to bladder distention. As per Urology. The nursing staff has already contacted Urology and they are going to try flushing some other catheters/tubes that the patient has in place. Dictated by RAIMUNDO Chaudhry for Chana Proctor MD cc: MD Geovani Wayne MD I have seen and examined the patient and agree with above A/P. Continue therapeutic Lovenox dosing. Urology to remove catheter. Chana ROBLERO
[2016-09-01] MEDS: DITROPAN PO PRN ×2 (10:48→18:42)
[2016-09-01] MEDS: PERCOCET-5 PO PRN ×2 (15:57→23:01)
[2016-09-01] MEDS: METAMUCIL POWDER PACKET PO SCH ×2 (16:59→20:30)
--- NOTE | 2016-09-01 18:47 | PROGRESS NOTE ---
DATE: 09/01/2016 SUBJECTIVE: The patient is postoperative day #1 suprapubic catheter placement. The patient tolerated this quite well. Overnight and early this morning, patient did experience an episode of catheter obstruction requiring irrigation. He also has experienced intermittent bladder spasms. This morning, his urine is dark, however this is not blood tinged at present time. He denies fevers, chills, nausea, vomiting, shortness of breath, or chest discomfort. OBJECTIVE: T-max 98.6 degrees, heart rate 60-66, respirations 16, blood pressure 107 to 138 over 47-55.General: Well nourished, well developed, no acute distress. Cardiovascular: Regular rate and rhythm. No significant murmurs, rubs, or gallops. Mechanical click is identified. Pulmonary: Clear to auscultation bilaterally. Abdomen: Soft, nontender, nondistended. Positive bowel sounds. Extremities: Moves all extremities well. No significant clubbing, cyanosis, or edema. Dermatologic: Evaluation reveals no evidence of rash. LABORATORY DATA: White blood cell count 9.62, hemoglobin 8.8, hematocrit 28.7, platelet count 252,000. ASSESSMENT AND PLAN: 1. Urinary retention - as noted on previous notes, this likely is secondary to a combination of bladder wax at the end clot obstruction. Patient is postoperative day #1, suprapubic catheter placement. Fulguration of bleeding was also performed. For now, we will continue our current plan. We will follow along with Urology. 2. Bladder spasms - Ditropan was initiated per Dr. Higginbotham. We will follow along. I suspect with removing the Rodriguez catheter, the spasms may be improved. 3. Hematuria/clot formation - patient's urine does not appear to have significant hematuria at present time but has significant blood present at present time. Because patient is being treated with subtherapeutic levels of Lovenox, I would like to increase as described below. We will follow for any evidence of blood loss. 4. Symptomatic anemia - Patient's hemoglobin and hematocrit remained stable. We will follow this. 5. Anticoagulation - patient currently is being treated with Lovenox 60 mg q.12 hours. We will increase this to a therapeutic level of 90 q.12 hours. We will follow for evidence of bleeding. 6. Profound weakness - this likely is secondary to a combination of blood loss and deconditioning. We will continue to encourage activity. 7. Hypertension - we will continue patient's home medications. 8. Reflux disease with dysphagia - patient has experienced several episodes. Unfortunately, he is not a good candidate for dilation at present time. We will consider this in the near future. 9. Hypertriglyceridemia/paroxysmal atrial fibrillation - we will remain aware. 10. Disposition - at this point, patient continues to require residential care in the hospital setting. We will plan discharge home once appropriate. cc: Geovani Diaz MD
[2016-09-01] MEDS: VITAMIN C PO SCH (20:29)
[2016-09-01] MEDS: LIPITOR PO SCH (20:30)
[2016-09-01] MEDS ORDERED: METAMUCIL PO SCH (21:00)
[2016-09-01] MEDS: RESTORIL PO PRN (23:57)
[2016-09-02 05:57] LABS: BASO% 0.2 % (0.0-0.8); EOS# 0.13 X1000 (0.0-0.7); HEMATOCRIT 24.7 % (42.0-52.0); HEMOGLOBIN 7.7 g/dL (14.0-18.0); IMM GRAN# 0.04 X1000 (0.0-0.04); IMM GRAN% 0.3 % (0.0-0.5); LYMPH# 1.44 X1000 (1.2-3.4); LYMPH% 11.5 % (20.5-51.1); MANUAL DIFF NEEDED? YES; MCHC 31.2 g/dL (33-37); MCV 83.4 FL (81-99); MONO# 1.65 X1000 (0.11-0.59); MONO% 13.2 % (1.7-9.3); MPV 10.2 FL (7.4-10.4); NEUT% 73.8 % (42.2-75.2); PLT 229 X1000 (130-400); RBC 2.96 XMIL (4.7-6.1)
[2016-09-02] MEDS: PRILOSEC PO SCH (06:04)
[2016-09-02 06:12] LABS: ALBUMIN 3.3 g/dL (3.5-5.0); CALCIUM 8.3 mg/dL (8.8-10.2); POTASSIUM 3.8 mmol/L (3.5-5.1); TOTAL BILIRUBIN 0.32 mg/dL (0.20-1.00); TOTAL PROTEIN 5.6 g/dL (6.3-8.3)
[2016-09-02 07:03] LABS: BANDS 1 % (0-1); LYMPHS 15 % (21-51); MONO 7 % (1-9)
[2016-09-02] MEDS: LEXAPRO PO SCH (08:25)
[2016-09-02] MEDS: PERIDEX MT SCH ×2 (08:25→21:53)
[2016-09-02] MEDS: FOLTX PO SCH (08:26)
[2016-09-02] MEDS: ZYRTEC PO SCH (08:26)
[2016-09-02] MEDS: SEPTRA DS PO SCH ×2 (08:26→21:53)
[2016-09-02] MEDS: ISOPTIN SR PO SCH ×2 (08:26→21:53)
[2016-09-02] MEDS: FLOMAX PO SCH ×2 (08:26→21:53)
[2016-09-02] MEDS: LOPID PO SCH ×2 (08:26→21:53)
[2016-09-02] MEDS: LOVENOX SUBQ SCH ×2 (08:27→21:53)
[2016-09-02] MEDS: METAMUCIL POWDER PACKET PO SCH ×2 (09:30→21:52)
[2016-09-02] MEDS ORDERED: NS 1,000 ML IV ONE (09:42)
[2016-09-02 12:27] LABS: URINE MICRO REVIEW NEEDED? NO; URINE SOURCE CLEAN CATCH
[2016-09-02 12:31] LABS: BILIRUBIN URINE NEGATIVE (NEGATIVE); BLOOD URINE LARGE (NEGATIVE); COLOR ORANGE; GLUCOSE URINE NEGATIVE (NEGATIVE); LEUKOCYTES URINE LARGE (NEGATIVE); NITRITE URINE NEGATIVE (NEGATIVE); PROTEIN URINE 70 mg/dL (NEGATIVE); SP GRAVITY URINE 1.008; TURBIDITY URINE HAZY (CLEAR); UROBILINOGEN URINE NORMAL (NORMAL)
[2016-09-02 12:32] LABS: UR EPITHELIAL CELLS <10 /HPF (<10); URINE BACTERIA NEGATIVE /HPF; URINE CULTURE NEEDED? YES; URINE RBC TNTC /HPF (<10); URINE WBC TNTC /HPF (<10)
[2016-09-02] MEDS: PERCOCET-5 PO PRN (13:48)
[2016-09-02] MEDS ORDERED: LEVAQUIN PO ONE (14:11)
--- NOTE | 2016-09-02 18:21 | PROGRESS NOTE ---
DATE: 09/02/2016 SUBJECTIVE: This morning, overall, patient states he is doing reasonably well. He is having some pain at the suprapubic catheter site. Over the course of the last 24 hours, the drainage from the suprapubic catheter has changed. Initially, the patient had brown discoloration of the urine. The patient subsequently has began urinating through his urethra. He is experiencing only bloody discharge from the suprapubic catheter. He denies fevers, chills, nausea, vomiting, shortness of breath, or chest discomfort. Dr. Higginbotham saw the patient after I had evaluated the patient. Unfortunately, he found the suprapubic catheter to be out of the bladder. The suprapubic catheter has subsequently been removed. OBJECTIVE: Vital Signs: Temperature maximum 98.6 degrees, heart rate 57-64, respirations 16-20, blood pressure 116-120/50-57. General: Well nourished, well developed, no acute distress. Cardiovascular: Regular rate and rhythm. No significant murmurs, rubs, or gallops. A mechanical click is identified. Pulmonary: Clear to auscultation anteriorly. Abdomen: Soft, nontender. Had a soft post-surgical tenderness in the suprapubic region. Positive bowel sounds. Extremities: Moves all extremities well. No significant clubbing, cyanosis, or edema. Dermatologic Evaluation: Reveals no evidence of rash. LABORATORY DATA: White blood cell count 12.50, hemoglobin 7.7, hematocrit 24.7, platelet count 229,000. Sodium 126, potassium 3.8, chloride 93, bicarbonate 22, BUN 16, creatinine 1.2. Glucose 103, calcium 8.3, total bilirubin 0.32, total protein 5.6, albumin 3.3, alkaline phosphatase 50. AST 13, ALT 7. Urinalysis revealed large blood and large leukocyte esterase. ASSESSMENT AND PLAN: 1. Urinary retention - as noted on previous notes, this is likely secondary to a combination of lateral laxity and clot obstruction. Patient is postoperative day #2 suprapubic catheter placement and fulguration of area of prostatic bed. Unfortunately, suprapubic catheter became malpositioned and has subsequently been removed. For now, we will defer management to Dr. Higginbotham. We will allow the patient to attempt adequate urination through the urethra. If he is unsuccessful, a catheter will be replaced. 2. Bladder spasms - patient is currently being treated with Ditropan as needed with adequate response. 3. Hematuria/clot formation - the patient's urine from his urethra at the present time is clear. We will continue to follow this closely. Patient is being treated with anticoagulation, as below. 4. Symptomatic anemia - patient's hemoglobin and hematocrit has decreased from yesterday. The question has been raised whether he may be bleeding into his pelvic space with the malpositioning of the Rodriguez catheter. Regardless, we will transfuse the patient 1 unit of packed red blood cells today. We will follow serial examinations. 5. Anticoagulation - the patient's Lovenox was increased to 90 mg q.12 hours yesterday. We will continue this and monitor closely. 6. Profound weakness- the patient remains weak, likely secondary to a combination of anemia and deconditioning. We will encourage activity. 7. Hypertension - patient's blood pressure is controlled on his current regimen. 8. Reflux disease - we will continue omeprazole therapy. We will plan an EGD and probable dilation as soon as able to as an outpatient safely. 9. Hypertriglyceridemia/paroxysmal atrial fibrillation - we will remain aware. 10. Abnormal urinalysis - we will had a levofloxacin to his Bactrim therapy. We will follow this. DISPOSITION: At this point, patient continues to require snf care in the hospital setting. We will plan discharge home once appropriate. cc: Geovani Diaz MD
--- NOTE | 2016-09-02 21:48 | PROGRESS NOTE ---
DATE: 09/02/2016 CHIEF COMPLAINT: They took the catheters out. HPI: Mr. Nolasco feels better today and is urinating clear urine multiple times this morning since catheters were removed by Dr. Higginbotham. OBJECTIVE: Vital signs: Temperature 97.6 degrees, pulse 64, respiratory rate 20, blood pressure 120/50, O2 saturation 97% on room air. General: This is a well-developed, well -nourished man in no acute distress. Eyes: Sclerae anicteric. Cardiovascular: Regular rate and rhythm. Normal S1, S2. No murmurs, rubs, or gallops. Mechanical heart valve sounds. Pulmonary: Lungs clear auscultation bilaterally without wheezes, rales, rhonchi. GI: Abdomen is soft, nontender, nondistended with normoactive bowel sounds. Extremities: No clubbing or cyanosis, 2+ pulses x4. Neuro: Is alert, oriented x3. No focal deficits. LABORATORY DATA: White count 12.5, hemoglobin 7.7, platelet count 229,000. Von Willebrand panel within normal limits as expected. Creatinine is 1.2. ASSESSMENT AND PLAN: 1. Hematuria: Resolved at this time status post catheter removal. Continue to monitor. Coag testing normal. 2. Anemia: Related to hematuria as above. The patient was transfused 1 unit packed red blood cells today. Reassess in the morning. 3. Mechanical heart valve. Patient continues on weight based 1 mg per kg q.12 hour dosing of Lovenox at this time. Continue to monitor. Thank you for the consultation on this patient. Will follow along and leave further recommendations based on hospital course. cc: MD Geovani Wayne MD MTDD
[2016-09-02] MEDS: LIPITOR PO SCH (21:52)
[2016-09-02] MEDS: VITAMIN C PO SCH (21:53)
[2016-09-03] MEDS: RESTORIL PO PRN (00:55)
[2016-09-03 05:57] LABS: MANUAL DIFF NEEDED? NO
[2016-09-03 06:06] LABS: BASO% 0.2 % (0.0-0.8); EOS# 0.16 X1000 (0.0-0.7); EOS% 1.6 % (0.0-10.0); HEMATOCRIT 26.7 % (42.0-52.0); HEMOGLOBIN 8.4 g/dL (14.0-18.0); IMM GRAN# 0.03 X1000 (0.0-0.04); IMM GRAN% 0.3 % (0.0-0.5); LYMPH# 1.13 X1000 (1.2-3.4); LYMPH% 11.5 % (20.5-51.1); MCH 26.2 PG (27-31); MCHC 31.5 g/dL (33-37); MCV 83.2 FL (81-99); MONO# 1.41 X1000 (0.11-0.59); MONO% 14.3 % (1.7-9.3); MPV 10.2 FL (7.4-10.4); NEUT% 72.1 % (42.2-75.2); PLT 227 X1000 (130-400); RBC 3.21 XMIL (4.7-6.1)
[2016-09-03 06:20] LABS: AGAP 11; ALBUMIN 3.3 g/dL (3.5-5.0); ALKALINE PHOSPHATASE 50 U/L (32-122); BUN 13 mg/dL (8-22); CALCIUM 8.3 mg/dL (8.8-10.2); CHLORIDE 97 mmol/L (98-107); COSMO 262; GOT 12 U/L (10-34); GPT 7 U/L (10-44); POTASSIUM 3.8 mmol/L (3.5-5.1); SODIUM 130 mmol/L (136-145); TCO2 22 mmol/L (25-35); TOTAL BILIRUBIN 0.23 mg/dL (0.20-1.00); TOTAL PROTEIN 5.7 g/dL (6.3-8.3)
[2016-09-03] MEDS: PRILOSEC PO SCH (06:41)
[2016-09-03] MEDS: LOVENOX SUBQ SCH ×2 (08:37→21:04)
[2016-09-03] MEDS: PERIDEX MT SCH ×2 (08:38→21:04)
[2016-09-03] MEDS: SEPTRA DS PO SCH ×2 (08:39→21:03)
[2016-09-03] MEDS: FLOMAX PO SCH ×2 (08:39→21:04)
[2016-09-03] MEDS: ZYRTEC PO SCH (08:39)
[2016-09-03] MEDS: ISOPTIN SR PO SCH ×2 (08:39→21:04)
[2016-09-03] MEDS: FOLTX PO SCH (08:39)
[2016-09-03] MEDS: LEXAPRO PO SCH (08:39)
[2016-09-03] MEDS: LOPID PO SCH ×2 (08:40→21:04)
[2016-09-03] MEDS: METAMUCIL POWDER PACKET PO SCH ×2 (08:40→21:08)
[2016-09-03] MEDS ORDERED: LEVAQUIN PO SCH (09:00)
--- NOTE | 2016-09-03 16:07 | PROGRESS NOTE ---
DATE: 09/03/2016 SUBJECTIVE: Mr. Nolasco has no new complaints today. OBJECTIVE: Vital Signs: Temperature 98.6 degrees, heart rate 73, respirations 16, blood pressure 126/50, saturations 96% on room air. LAB: White blood cells 9.83, hemoglobin 8.4, hematocrit 26.7, platelet count 227,000. Sodium 130, potassium 3.8, chloride 96, carbon dioxide 22, BUN 13, creatinine 1.0, glucose 110. PHYSICAL EXAM: Cardiovascular: Regular rate and rhythm. Mechanical clicks appreciated. Chest: Clear to auscultation bilaterally, normal respiratory effort. Abdomen: Soft, nontender, nondistended. Extremities: Some trace bilateral lower extremity pitting edema. ASSESSMENT AND PLAN: 1. Mariano hematuria. This is now improved. The patient will continue on his current dose of Lovenox for his mechanical valve. Continue management as per urology. 2. Anemia. Secondary previously to hematuria. He did have to receive some blood yesterday. Hemoglobin is improved and stable at this time. Continue to monitor, transfuse as needed. 3. Anticoagulation needed due to mechanical valve in place. Continue Lovenox at 1 mg/kg q.12 hours. At this time will continue to follow this patient peripherally. If we are needed, please contact us. Dictated by RAIMUNDO Chaudhry for Chana Proctor MD cc: MD Geovani Wayne MD I have seen and examined the patient and reviewed his chart. Bleeding seems to have stopped. His bowels are moving now. Continue anticoagulation and urinary monitoring as per urology. Chana Proctor MD [facility]ITALNorma
[2016-09-03 19:44] LABS: HEMATOCRIT 26.1 % (42.0-52.0); HEMOGLOBIN 8.2 g/dL (14.0-18.0); MCH 26.1 PG (27-31); MCHC 31.4 g/dL (33-37); MCV 83.1 FL (81-99); MPV 9.5 FL (7.4-10.4); RBC 3.14 XMIL (4.7-6.1)
[2016-09-03] MEDS: LIPITOR PO SCH (21:04)
[2016-09-03] MEDS: VITAMIN C PO SCH (21:04)
[2016-09-03] MEDS: PERCOCET-5 PO PRN (21:09)
--- NOTE | 2016-09-03 23:23 | PROGRESS NOTE ---
DATE: 09/03/2016 SUBJECTIVE: Overall, patient's condition continues to very slowly improve. As described yesterday, patient's suprapubic catheter was spontaneously removed. Since that time, patient has adequately emptied his bladder through his urethra. He does complain of urinary frequency, although no significant hematuria has been identified. His postvoid residuals have been acceptable. He denies fevers, chills, nausea, vomiting, shortness of breath, or chest discomfort. His p.o. intake has been decreased today. OBJECTIVE: Vital signs: T-max 99.0, heart rate 58-65, respirations 16-20, blood pressure 111- 126 over 50-60. General: Well nourished, well developed, no acute distress. Cardiovascular: Regular rate and rhythm. No significant murmurs, rubs, or gallops. Mechanical click identified. Pulmonary: Clear to auscultation bilaterally. Abdomen: Soft, nontender, nondistended. Positive bowel sounds. Extremities: Moves all extremities well. No significant clubbing, cyanosis, or edema. Dermatologic: Evaluation reveals no evidence of rash. LABORATORY DATA: White blood cell count 8.59, hemoglobin 8.2, hematocrit 26.1, platelet count 211,000. Sodium 130, potassium 3.8, chloride 97, bicarb 22, BUN 13, creatinine 1.0, glucose 110, calcium 8.3, total bilirubin 0.23, total protein 5.7, albumin 3.3, alkaline phosphatase 50, AST 12, ALT 7. ASSESSMENT AND PLAN: 1. Urinary retention-as above, patient's suprapubic catheter came out spontaneously yesterday. At present time, the patient is adequately emptying his bladder through his urethra. For now, we will follow closely. Should the patient experience a recurrence of symptoms, we will consider Rodriguez catheter placement and possible repeat placement of a suprapubic catheter. 2. Bladder spasms-patient has Ditropan used as needed. Symptoms are reasonably controlled. 3. Hematuria-patient is status post recent fulguration of prostatic bed. Patient is demonstrating only mild hematuria at present time. We will remain aware. 4. Symptomatic anemia-patient's hemoglobin, hematocrit remain stable. We will continue to follow clinically. 5. Anticoagulation-patient's Lovenox is at a therapeutic level of 1 mg/kg. We will plan to resume Coumadin therapy in the near future. 6. Profound weakness-we will initiate physical therapy. This likely is secondary to a combination of blood loss anemia and deconditioning. 7. Hypertension-patient's blood pressure is controlled on his current regimen. 8. Reflux disease-we will continue omeprazole therapy. We will plan EGD and possible dilation secondary to dysphagia as soon as he is clinically stable as an outpatient. 9. Hypertriglyceridemia/paroxysmal atrial fibrillation-will remain aware. 10. Abnormal urinalysis-levofloxacin was added to Bactrim yesterday. Thus far, cultures have been negative. We will remain aware. 11. Decreased appetite-this likely is secondary to the addition of levofloxacin. We will remain aware. 12. Disposition-at this point, the patient continues to require group home care in a hospital setting. We will plan discharge home once appropriate. cc: Geovani Diaz MD
[2016-09-04] MEDS: RESTORIL PO PRN (00:02)
[2016-09-04] MEDS: PRILOSEC PO SCH (07:23)
[2016-09-04] MEDS: LOPID PO SCH ×2 (08:33→22:32)
[2016-09-04] MEDS: ISOPTIN SR PO SCH ×2 (08:34→22:32)
[2016-09-04] MEDS: PERIDEX MT SCH ×2 (08:34→22:32)
[2016-09-04] MEDS: LOVENOX SUBQ SCH ×2 (08:34→22:32)
[2016-09-04] MEDS: FLOMAX PO SCH ×2 (08:34→22:32)
[2016-09-04] MEDS: ZYRTEC PO SCH (08:34)
[2016-09-04] MEDS: LEXAPRO PO SCH (08:34)
[2016-09-04] MEDS: FOLTX PO SCH (08:35)
[2016-09-04] MEDS: METAMUCIL POWDER PACKET PO SCH ×2 (10:34→22:32)
--- NOTE | 2016-09-04 14:51 | PROGRESS NOTE ---
DATE: 09/04/2016 SUBJECTIVE: Overall, patient continues to very slowly improve. The patient continues to void per his urethra. He is voiding approximately every 1-2 hours. His postvoid residual has been negligible. He has noted mild hematuria has developed. He denies passing blood clots at present time. He denies fevers, chills, nausea, vomiting, shortness of breath, or chest discomfort. He remains very weak. Appetite remains low. OBJECTIVE: Vital signs: T-max 98.2 degrees, heart rate 54-61, respirations 16-20, blood pressure 109-123 over 44-85. General: Well nourished, well developed, no acute distress. Cardiovascular: Regular rate and rhythm. No significant murmurs, rubs, or gallops. Mechanical click is noted. Pulmonary: Clear to auscultation bilaterally. Abdomen: Soft, slightly tender in the suprapubic region, nondistended, positive bowel sounds. Extremities: Moves all extremities well. No significant clubbing, cyanosis, or edema. Dermatologic: Evaluation reveals no evidence of rash. LABORATORY DATA: None. ASSESSMENT AND PLAN: 1. Urinary retention-the patient's voiding has improved. His recent postvoid residuals are negligible. For now, we will continue symptomatic management. At this point, I do not see an indication for repeat Rodriguez catheter placement or suprapubic catheter placement. 2. Bladder spasms-the patient is having considerable bladder spasms, likely secondary to multiple recent surgical interventions. We will continue patient on as needed Ditropan. 3. Hematuria-this likely is secondary to his recent procedures. As this is not progressive, we will continue his current regimen. 4. Symptomatic anemia-patient's hemoglobin and hematocrit were stable as of yesterday. We will remain aware. 5. Anticoagulation-at this point, the risk of stopping anticoagulation outweighs the benefits. We will continue therapeutic doses of Lovenox. We will plan to initiate Coumadin therapy in the near future. 6. Profound weakness-physical therapy was initiated this morning. We will continue to follow. 7. Hypertension-we will continue patient's home medications. 8. Reflux disease with associated dysphagia-we will continue omeprazole therapy. We will plan an EGD with possible dilation as an outpatient. At this point, the risks outweigh the benefits. 9. Hypertriglyceridemia/paroxysmal atrial fibrillation-we will remain aware. 10. Abnormal urinalysis-patient's culture thus far has returned negative. As patient is having a decreased appetite and some fatigue, we will discontinue Bactrim and levofloxacin therapy. We will follow this. 11. Disposition-at this point, patient continues to require penitentiary care in a hospital setting. We will plan discharge home once appropriate. cc: Geovani Diaz MD
[2016-09-04] MEDS: PERCOCET-5 PO PRN (17:32)
[2016-09-04] MEDS: VITAMIN C PO SCH (22:32)
[2016-09-04] MEDS: LIPITOR PO SCH (22:32)
[2016-09-04] MEDS: DITROPAN PO PRN (22:58)
[2016-09-05] MEDS: RESTORIL PO PRN (00:25)
[2016-09-05 05:46] LABS: MANUAL DIFF NEEDED? NO
[2016-09-05] MEDS: PRILOSEC PO SCH (06:16)
[2016-09-05 06:25] LABS: BASO% 0.5 % (0.0-0.8); EOS# 0.25 X1000 (0.0-0.7); EOS% 4.3 % (0.0-10.0); HEMATOCRIT 26.1 % (42.0-52.0); HEMOGLOBIN 8.2 g/dL (14.0-18.0); IMM GRAN# 0.03 X1000 (0.0-0.04); IMM GRAN% 0.5 % (0.0-0.5); LYMPH# 1.39 X1000 (1.2-3.4); LYMPH% 24.1 % (20.5-51.1); MCH 26.1 PG (27-31); MCHC 31.4 g/dL (33-37); MCV 83.1 FL (81-99); MONO# 0.93 X1000 (0.11-0.59); MONO% 16.1 % (1.7-9.3); MPV 10.4 FL (7.4-10.4); NEUT% 54.5 % (42.2-75.2); PLT 226 X1000 (130-400); RBC 3.14 XMIL (4.7-6.1)
[2016-09-05 06:41] LABS: AGAP 11; ALBUMIN 3.3 g/dL (3.5-5.0); ALKALINE PHOSPHATASE 51 U/L (32-122); BUN 12 mg/dL (8-22); CALCIUM 8.6 mg/dL (8.8-10.2); CHLORIDE 97 mmol/L (98-107); COSMO 260; GOT 17 U/L (10-34); GPT 7 U/L (10-44); POTASSIUM 3.9 mmol/L (3.5-5.1); SODIUM 130 mmol/L (136-145); TCO2 22 mmol/L (25-35); TOTAL BILIRUBIN 0.29 mg/dL (0.20-1.00); TOTAL PROTEIN 5.7 g/dL (6.3-8.3)
[2016-09-05] MEDS: FOLTX PO SCH (08:39)
[2016-09-05] MEDS: ZYRTEC PO SCH (08:39)
[2016-09-05] MEDS: PERIDEX MT SCH ×2 (08:39→21:28)
[2016-09-05] MEDS: LEXAPRO PO SCH (08:39)
[2016-09-05] MEDS: ISOPTIN SR PO SCH ×2 (08:39→21:28)
[2016-09-05] MEDS: FLOMAX PO SCH ×2 (08:39→21:28)
[2016-09-05] MEDS: LOPID PO SCH ×2 (08:39→21:28)
[2016-09-05] MEDS: METAMUCIL POWDER PACKET PO SCH ×2 (08:39→21:29)
[2016-09-05] MEDS: LOVENOX SUBQ SCH ×2 (08:40→21:29)
[2016-09-05] MEDS: DITROPAN PO PRN (11:34)
[2016-09-05] MEDS: PERCOCET-5 PO PRN ×3 (13:28→19:39)
--- NOTE | 2016-09-05 15:09 | PROGRESS NOTE ---
DATE: 09/05/2016 SUBJECTIVE: This morning, patient was doing reasonably well. Upon my arrival this afternoon, patient complained of difficulty with urine as well as increasing hematuria. He complains of significant right lower quadrant and suprapubic pain. He has required pain medications to maintain adequate control. He denies fevers, chills, nausea, vomiting, shortness of breath, or chest discomfort. He remains very weak. OBJECTIVE: Vital Signs: T-max 98.6 degrees, heart rate 56-91, respirations 14-20, blood pressure 117 to 129 over 48 to 58. General: Well nourished, well developed, in no acute distress. Cardiovascular: Regular rate and rhythm. No significant murmurs, rubs, or gallops. A mechanical click is identified. Pulmonary: Clear to auscultation bilaterally. Abdomen: Soft. Tenderness to the right lower quadrant and the suprapubic region. There does appear to be a fullness in this area consistent with probable hematoma. Positive bowel sounds. Extremities: Moves all extremities well. No significant clubbing, cyanosis, or edema. Dermatologic: Evaluation reveals no evidence of rash. LABORATORY DATA: White blood cell count 5.77, hemoglobin 8.2, hematocrit 26.1, platelet count 226,000. Sodium 130, potassium 3.9, chloride 97, bicarbonate 22, BUN 12, creatinine 0.8, glucose 90, calcium 8.6, total bilirubin 0.29, total protein 5.7, albumin 3.3, alkaline phosphatase 51, AST 17, ALT 7. ASSESSMENT AND PLAN: 1. Urinary retention - Up until yesterday, patient's urination had been reasonably controlled. Patient was experiencing frequency, but was adequately emptying his bladder. He is concerned that the pain may, indeed, be retention associated. The patient's postvoid residual at the present time is approximately 150. He has, however, developed increasing hematuria. For now, we will follow. We will determine if placing a Rodriguez catheter or a repeat suprapubic catheter is appropriate. 2. Bladder spasms - We will continue symptomatic management. This likely is secondary to recent surgical intervention. 3. Right lower quadrant and suprapubic pain - As above, I suspect this may be secondary to hematoma formation. We will, however, check a CT scan to rule out intra-abdominal process. We will follow this. 4. Symptomatic anemia - Patient's hemoglobin and hematocrit remain stable. We will remain aware. 5. Anticoagulation - We will continue patient on Lovenox 90 mg q.12 hours. We will plan to transition to Coumadin once able. 6. Profound weakness - We will continue physical therapy. This likely is multifactorial. 7. Hypertension - We will continue patient's home medications. 8. Reflux disease with associated dysphagia - We will continue omeprazole therapy. The patient likely will require dilation as an outpatient; however, at the present time, the risks outweigh the benefits. 9. Hypertriglyceridemia/paroxysmal atrial fibrillation - We will remain aware. 10. Abnormal urinalysis - Patient's culture returned negative. Antibiotics have been held. 11. Disposition - At this point, patient continues to require longterm care in a hospital setting. We will plan discharge home once appropriate. cc: Geovani Diaz MD
--- NOTE | 2016-09-05 15:16 | Diag Imaging Result Doc PS360 ---
ABDOMEN/PELVIS W/O CONTRAST - 09/05/2016 INDICATION: Intract. lower abd pain/ recent urologic surgery TECHNIQUE: A CT dose reduction protocol was used. COMPARISON: None FINDINGS: Aside from some linear scarring, the lung bases are clear. There is a metallic device and the heart and there is cardiomegaly. There are sternotomy wires. There appears to be a mitral valve replacement. There is a rather large hiatal hernia with about a third of the stomach in the chest. There are several bilateral renal cysts or masslike areas of varying densities. These measure up to about 4 cm. No radiodense renal stones. No hydronephrosis or hydroureter. 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 The distal abdominal aorta however is grossly normal. There are moderately large, irregular, heterogeneous hyperdense fluid collections in the inferior right rectus muscle and the left thigh subcutaneous tissue. These are compatible with acute soft tissue hemorrhages. At the rectus muscle this measures about 5 x 5.7 cm. At the left side this measures about 5.5 cm. No bowel obstruction or inflammation. Normal appendix. There is extensive diverticulosis of the descending and sigmoid colon. There is a small soft tissue density mass at the roof of the urinary bladder. This measures about 1.2 cm. There is moderately heavy degeneration of the thoracolumbar spine. There is abnormal bony mineralization at T11 and L3. The appearance is most suggestive of large benign hemangiomas. No fractures. IMPRESSION: 1. Moderate to large intramuscular and subcutaneous hemorrhages. 2. 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 3. Cardiomegaly. 4. Large hiatal hernia. 5. Bilateral renal cysts or masses of variable and indeterminate character. 6. Severe diverticulosis coli. Electronically signed by Guido Ellington 09/05/2016 3:13 PM
[2016-09-05] MEDS: NORCO-5 PO PRN ×2 (15:50→21:28)
[2016-09-05] MEDS: MORPHINE IV PRN ×3 (17:53→22:59)
[2016-09-05] MEDS ORDERED: XYLOCAINE 2% JELLY UROJECT UR ONE (19:15)
[2016-09-05] MEDS: VITAMIN C PO SCH (21:28)
[2016-09-05] MEDS: LIPITOR PO SCH (21:28)
[2016-09-06] MEDS: PERCOCET-5 PO PRN ×3 (00:13→15:09)
[2016-09-06] MEDS: MORPHINE IV PRN ×2 (03:25→23:31)
[2016-09-06] MEDS: NORCO-5 PO PRN ×2 (04:52→20:43)
[2016-09-06] MEDS: PRILOSEC PO SCH (06:27)
[2016-09-06] MEDS: METAMUCIL POWDER PACKET PO SCH (08:54)
[2016-09-06] MEDS: LEXAPRO PO SCH (08:55)
[2016-09-06] MEDS: PERIDEX MT SCH (08:55)
[2016-09-06] MEDS: FLOMAX PO SCH ×2 (08:55→20:42)
[2016-09-06] MEDS: LOPID PO SCH ×2 (08:55→20:43)
[2016-09-06] MEDS: ISOPTIN SR PO SCH ×2 (09:01→20:43)
[2016-09-06] MEDS: FOLTX PO SCH (09:01)
[2016-09-06] MEDS: ZYRTEC PO SCH (09:01)
[2016-09-06 09:13] LABS: MANUAL DIFF NEEDED? NO
[2016-09-06 09:53] LABS: BASO% 0.2 % (0.0-0.8); EOS# 0.02 X1000 (0.0-0.7); EOS% 0.2 % (0.0-10.0); HEMATOCRIT 22.7 % (42.0-52.0); HEMOGLOBIN 7.3 g/dL (14.0-18.0); IMM GRAN# 0.06 X1000 (0.0-0.04); IMM GRAN% 0.5 % (0.0-0.5); LYMPH# 1.22 X1000 (1.2-3.4); LYMPH% 9.4 % (20.5-51.1); MCH 26.4 PG (27-31); MCHC 32.2 g/dL (33-37); MCV 81.9 FL (81-99); MONO# 1.27 X1000 (0.11-0.59); MONO% 9.8 % (1.7-9.3); MPV 9.5 FL (7.4-10.4); NEUT% 79.9 % (42.2-75.2); PLT 264 X1000 (130-400); RBC 2.77 XMIL (4.7-6.1)
[2016-09-06] MEDS ORDERED: ZOFRAN IV PRN (10:29)
[2016-09-06] MEDS: HEPARIN 25,000 UNITS/D5W 25,000 UNIT/250 ML IV.SOLN IV SCH ×2 (12:14→12:32)
[2016-09-06] MEDS ORDERED: NS 500 ML ONE (12:47)
[2016-09-06] MEDS ORDERED: NS 500 ML IV SCH (12:48)
[2016-09-06 14:25] LABS: INR 0.98; PROTIME 10.3 Seconds (9.2-11.7)
[2016-09-06 16:49] LABS: MANUAL DIFF NEEDED? NO
[2016-09-06 16:57] LABS: BASO% 0.2 % (0.0-0.8); EOS# 0.06 X1000 (0.0-0.7); EOS% 0.5 % (0.0-10.0); HEMATOCRIT 23.9 % (42.0-52.0); HEMOGLOBIN 7.8 g/dL (14.0-18.0); IMM GRAN# 0.08 X1000 (0.0-0.04); IMM GRAN% 0.6 % (0.0-0.5); LYMPH# 1.35 X1000 (1.2-3.4); LYMPH% 10.3 % (20.5-51.1); MCH 26.6 PG (27-31); MCHC 32.6 g/dL (33-37); MCV 81.6 FL (81-99); MONO# 1.73 X1000 (0.11-0.59); MONO% 13.2 % (1.7-9.3); MPV 9.2 FL (7.4-10.4); NEUT% 75.2 % (42.2-75.2); PLT 237 X1000 (130-400); RBC 2.93 XMIL (4.7-6.1)
[2016-09-06] MEDS: LIPITOR PO SCH (20:42)
[2016-09-06] MEDS: VITAMIN C PO SCH (20:43)
[2016-09-06] MEDS ORDERED: HEPARIN 25,000 UNITS/D5W 25,000 UNIT/250 ML IV.SOLN IV SCH (22:14)
[2016-09-06] MEDS ORDERED: HEPARIN IV ONE (22:14)
[2016-09-07] MEDS: METAMUCIL POWDER PACKET PO SCH ×3 (00:44→19:59)
[2016-09-07] MEDS: PERCOCET-5 PO PRN ×6 (00:45→23:09)
[2016-09-07] MEDS: PERIDEX MT SCH ×3 (00:45→19:59)
[2016-09-07] MEDS: MORPHINE IV PRN ×4 (02:31→18:25)
--- NOTE | 2016-09-07 04:32 | PROGRESS NOTE ---
DATE: 09/06/2016 SUBJECTIVE: Over the course of the last 24 hours, unfortunately, patient had a considerable decline. The patient experienced significant pain in the suprapubic and right lower quadrant. CT scan confirmed a large hematoma. The patient required multiple pain medications to achieve adequate control of pain. The patient's Lovenox was held. This morning, patient complained of improving pain. He continues to be very fatigued. CBC confirmed recurrent anemia. He denies fevers, chills, nausea, vomiting, shortness of breath, or chest discomfort. OBJECTIVE: Vital Signs: T-max 98.6 degrees, heart rate 64-66, respirations 16-20, blood pressure 104-125 over 46-58. General: Well nourished, well developed, in no acute distress. Cardiovascular: Regular rate and rhythm. No significant murmurs, rubs, or gallops. A mechanical click is identified. Pulmonary: Clear to auscultation bilaterally. Abdomen: Soft, significant tenderness in the right lower quadrant with associated thickness/induration. Positive bowel sounds. Extremities: Moves all extremities well. No significant clubbing, cyanosis, or edema. Dermatologic: Evaluation reveals no evidence of rash LABORATORY DATA: White blood cell count 13.09, hemoglobin 7.8, hematocrit 23.9, platelet count 237,000. ASSESSMENT AND PLAN: 1. Urinary retention - Unfortunately, the patient redeveloped urinary retention yesterday. A 3- way catheter was replaced. Patient has required multiple surgical interventions secondary to clot obstruction. We will address anticoagulation as described below. I appreciate Dr. Higginbotham' assistance. 2. Bladder spasms - We will continue symptomatic management. 3. Right lower quadrant/suprapubic hematoma - We will continue supportive care. The pain is slowly improving. Anticoagulation will be addressed as below. 4. Symptomatic anemia - We will again transfuse to a hemoglobin and hematocrit above 8 in 24. We will follow this. 5. Anticoagulation - I discussed case with Dr. Proctor. We will avoid Lovenox at present time as patient may have a true sensitivity. We will start heparin drip. If patient tolerates this over the course of the first 24 hours, we will consider adding Coumadin therapy. We will follow this. 6. Hypertension - Patient's blood pressure is reasonably controlled on his current regimen. 7. Reflux disease with associated dysphagia - We will continue omeprazole therapy. At this point, he is not a good candidate for esophagogastroduodenoscopy and dilation. 8. Hypertriglyceridemia/paroxysmal atrial fibrillation - We will remain aware. 9. Disposition - At this point, patient continues to require long-term care in a hospital setting. We will plan discharge home once appropriate. cc: Geovani Diaz MD
[2016-09-07] MEDS: NORCO-5 PO PRN (05:03)
[2016-09-07] MEDS: PRILOSEC PO SCH ×2 (05:04→08:17)
[2016-09-07 05:41] LABS: BASO% 0.2 % (0.0-0.8); MANUAL DIFF NEEDED? YES; MCV 79.4 FL (81-99); MONO% 13.3 % (1.7-9.3)
[2016-09-07 06:22] LABS: EOS% 0.7 % (0.0-10.0); HEMATOCRIT 25.1 % (42.0-52.0); HEMOGLOBIN 8.2 g/dL (14.0-18.0); IMM GRAN# 0.15 X1000 (0.0-0.04); IMM GRAN% 1.1 % (0.0-0.5); LYMPH# 1.32 X1000 (1.2-3.4); LYMPH% 9.3 % (20.5-51.1); MCH 25.9 PG (27-31); MCHC 32.7 g/dL (33-37); MONO# 1.89 X1000 (0.11-0.59); NEUT% 75.4 % (42.2-75.2); PLT 226 X1000 (130-400); RBC 3.16 XMIL (4.7-6.1)
[2016-09-07 07:07] LABS: BANDS 14 % (0-1); HYPOCHROM OCCASIONAL; LYMPHS 10 % (21-51); MONO 10 % (1-9)
[2016-09-07 07:36] LABS: ALKALINE PHOSPHATASE 63 U/L (32-122); BUN 18 mg/dL (8-22); CALCIUM 8.5 mg/dL (8.8-10.2); CHLORIDE 87 mmol/L (98-107); GOT 21 U/L (10-34); GPT 10 U/L (10-44); POTASSIUM 4.4 mmol/L (3.5-5.1); SODIUM 125 mmol/L (136-145); TCO2 18 mmol/L (25-35); TOTAL BILIRUBIN 0.59 mg/dL (0.20-1.00); TOTAL PROTEIN 5.6 g/dL (6.3-8.3)
[2016-09-07 07:42] LABS: AGAP 20; ALBUMIN 3.4 g/dL (3.5-5.0); COSMO 256
[2016-09-07] MEDS: HEPARIN 25,000 UNITS/D5W 25,000 UNIT/250 ML IV.SOLN IV SCH ×2 (08:05→10:33)
[2016-09-07] MEDS: LEXAPRO PO SCH (08:36)
[2016-09-07] MEDS: ISOPTIN SR PO SCH ×2 (08:37→19:59)
[2016-09-07] MEDS: FLOMAX PO SCH ×2 (08:37→20:00)
[2016-09-07] MEDS: LOPID PO SCH ×2 (08:37→20:00)
[2016-09-07] MEDS: ZYRTEC PO SCH (13:03)
[2016-09-07] MEDS: FOLTX PO SCH (13:03)
--- NOTE | 2016-09-07 15:24 | PROGRESS NOTE ---
DATE: 09/07/2016 SUBJECTIVE: Mr. Nolasco has no acute complaints today. OBJECTIVE/VITAL SIGNS: Temperature 98.6 degrees, heart rate 65, respirations 18, blood pressure 107/53, O2 saturation 98% on room air. LABORATORY: White blood cells 14.20, hemoglobin 8.2, hematocrit 25.1, platelet count 226. Sodium 125, potassium 4.4, chloride 87, CO2 18, BUN 18, creatinine 0.9, glucose 256. PHYSICAL EXAMINATION: Cardiovascular: Mechanical click noted. S1, S2 heard. Respiratory: Lungs essentially clear to auscultation with no respiratory effort. Gastrointestinal: The patient does have a hematoma in the rectus muscle region. Otherwise, abdomen is soft, nondistended, nontender. Extremities: The patient has trace bilateral pitting edema. ASSESSMENT AND PLAN: 1. Rosette hematuria. Patient at one point had improved symptoms. Evidently, he started bleeding some yesterday. He also developed this hematoma as previously mentioned. He was taken off of his Lovenox and was placed on a heparin drip which continues at this time. It seems the plan will be to restart Coumadin if no further urologic or other issues present themselves. He will need to be monitored closely for any further bleeding. Currently, urine is being irrigated and is clear. 2. Mechanical valve replacement. Patient does need to be on chronic anticoagulation. Currently on a heparin drip with plans to hopefully restart Coumadin soon. 3. Anemia. Previously related to his rosette hematuria. Overall after receiving blood yesterday, his hemoglobin has been stable. Continue to monitor. Continue to transfuse p.r.n. Dictated by RAIMUNDO Chaudhry for Chana Proctor MD cc: MD Geovani Wayne MD
--- NOTE | 2016-09-07 18:38 | PROGRESS NOTE ---
DATE: 09/07/2016 SUBJECTIVE: Overnight, patient states he continued to have some superficial abdominal discomfort. The pain was similar to his pain associated with his hematoma formation. The patient has been treated with both Percocet and morphine therapy. His p.o. intake is marginal. He remains very weak. Three-way irrigation continues. He continues to have a slightly tinged urine. Otherwise, he is tolerating heparin drip quite well. He denies fevers, chills, nausea, vomiting, shortness of breath, or chest discomfort. OBJECTIVE: Vital signs: T-max 98.6 degrees, heart rate 55-66, respirations 16-18, blood pressure 107 to 127 over 53 to 58. General: Well nourished, well developed. No acute distress. Cardiovascular: Regular rate and rhythm. No significant murmurs, rubs, or gallops. Mechanical click is identified. Pulmonary: Clear to auscultation bilaterally. Abdomen: Soft. Tenderness to palpation in the right lower quadrant and just superior to the right suprapubic region. Density is palpable consistent with hematoma. Positive bowel sounds. Extremities: Moves all extremities well. No significant clubbing, cyanosis, or edema. Dermatologic: Evaluation reveals no evidence of rash. LABORATORY DATA: White blood cell count 14.20, hemoglobin 8.2, hematocrit 25.1, platelet count 226,000. ASSESSMENT AND PLAN: 1. Urinary retention-unfortunately, patient has experienced multiple episodes. These likely are combination of primary urinary retention and clot obstruction. Patient has a 3-way catheter placed at present time. We will continue irrigation per Dr. Higginbotham. We will attempt to titrate off of 3-way catheter as able. 2. Bladder spasms-we will continue symptomatic management. 3. Right lower quadrant/suprapubic hematoma-the patient continues to have considerable pain. We will continue supportive care. For now, we will attempt to continue anticoagulation if able. 4. Symptomatic anemia-patient's hemoglobin and hematocrit remain slightly low. We will transfuse again today. We will continue to follow serial examinations and transfuse as necessary. 5. Anticoagulation-I have discussed case with Dr. Proctor and Dr. Higginbotham. At this point, it appears the patient may have a hyper response to Lovenox. This has been discontinued and patient has been converted to heparin. As patient's condition is reasonably stable at present time, we will resume Coumadin therapy. We will need to address this should repeat surgical intervention be warranted. 6. Leukocytosis-patient's white blood cell count has increased slightly over the course of the last several days. He is afebrile. At this point, this may be secondary to demargination in the setting of acute hematoma/acute urinary retention. We will plan to follow this closely and have a low threshold for infectious evaluation. Patient certainly is at risk for underlying urinary infectious diseases. 7. Hypertension-we will continue patient's home medications as his blood pressure is reasonably controlled. 8. Reflux disease with associated dysphasia-at this point, we will continue proton pump inhibitor. He is not a good candidate for EGD and dilation at present time. 9. Hypertriglyceridemia/paroxysmal atrial fibrillation-we will remain aware. 10. Mechanical mitral valve-unfortunately, this has posed a significant problem in treating his underlying bleeding. The patient does continue to require full anticoagulation secondary to his mechanical valve. I have discussed this with the patient's family in detail. For now, we will continue anticoagulation as prescribed. 11. Disposition-at this point, patient continues to require custodial care in a hospital setting until he is therapeutic on Coumadin. We will plan discharge home once his bleeding has been resolved and he is therapeutic on Coumadin therapy. cc: Geovani Diaz MD
[2016-09-07] MEDS: COUMADIN PO SCH (20:00)
[2016-09-07] MEDS: VITAMIN C PO SCH (20:00)
[2016-09-07] MEDS: LIPITOR PO SCH (20:00)
[2016-09-08] MEDS: DITROPAN PO PRN (01:24)
[2016-09-08] MEDS: NS 500 ML IV SCH ×2 (01:29→05:50)
[2016-09-08 05:42] LABS: BASO% 0.1 % (0.0-0.8); EOS# 0.04 X1000 (0.0-0.7); EOS% 0.2 % (0.0-10.0); HEMATOCRIT 26.1 % (42.0-52.0); HEMOGLOBIN 8.7 g/dL (14.0-18.0); IMM GRAN# 0.15 X1000 (0.0-0.04); IMM GRAN% 0.8 % (0.0-0.5); LYMPH# 0.89 X1000 (1.2-3.4); LYMPH% 4.7 % (20.5-51.1); MANUAL DIFF NEEDED? YES; MCH 26.4 PG (27-31); MCHC 33.3 g/dL (33-37); MCV 79.3 FL (81-99); MONO# 2.96 X1000 (0.11-0.59); MONO% 15.5 % (1.7-9.3); MPV 9.5 FL (7.4-10.4); NEUT% 78.7 % (42.2-75.2); PLT 232 X1000 (130-400); RBC 3.29 XMIL (4.7-6.1)
[2016-09-08] MEDS: PRILOSEC PO SCH ×2 (05:45→18:53)
[2016-09-08] MEDS: HEPARIN 25,000 UNITS/D5W 25,000 UNIT/250 ML IV.SOLN IV SCH ×2 (05:46→19:30)
[2016-09-08] MEDS: PERCOCET-5 PO PRN ×3 (05:46→14:16)
[2016-09-08] MEDS: MORPHINE IV PRN ×2 (06:35→11:23)
[2016-09-08 06:40] LABS: BANDS 12 % (0-1); LYMPHS 10 % (21-51); MONO 8 % (1-9)
[2016-09-08 06:41] LABS: HYPOCHROM 1+
[2016-09-08 07:12] LABS: ALBUMIN 3.3 g/dL (3.5-5.0); CALCIUM 9.1 mg/dL (8.8-10.2); POTASSIUM 4.9 mmol/L (3.5-5.1); TOTAL BILIRUBIN 0.63 mg/dL (0.20-1.00)
[2016-09-08 08:56] LABS: CALCIUM 8.8 mg/dL (8.8-10.2); POTASSIUM 5.1 mmol/L (3.5-5.1)
[2016-09-08] MEDS ORDERED: SAMSCA PO ONE (09:16)
[2016-09-08] MEDS ORDERED: LASIX IV ONE (09:16)
[2016-09-08] MEDS: FLOMAX PO SCH ×2 (09:48→21:16)
[2016-09-08] MEDS: PERIDEX MT SCH (09:48)
[2016-09-08] MEDS: LEXAPRO PO SCH (09:48)
[2016-09-08] MEDS: LOPID PO SCH ×2 (09:49→21:17)
[2016-09-08] MEDS: ISOPTIN SR PO SCH ×2 (09:49→21:17)
[2016-09-08] MEDS: ZYRTEC PO SCH (09:49)
[2016-09-08] MEDS: FOLTX PO SCH (09:49)
[2016-09-08] MEDS: METAMUCIL POWDER PACKET PO SCH ×2 (09:49→21:16)
--- NOTE | 2016-09-08 11:48 | PROGRESS NOTE ---
DATE: 09/08/2016 SUBJECTIVE: The patient apparently had good relief from his rectus hematoma during the day yesterday. As the night progressed, he had worsening pain. Around 4 a.m., he describes his pain as 15 out of 10. He has finally gotten some relief from the morphine and rates his pain as a 6 out of 10. His p.o. intake was reasonable yesterday. He continues to have blood-tinged urine. OBJECTIVE: Vital Signs: Temperature 98.5 degrees, pulse 67, respirations 14, and blood pressure 121/50. General: He is a well-developed white male who is a little less animated than the last time I saw him. He is a bit sleepy, but easily arousable, conversive, and appropriate. Lungs: Clear to auscultation. Cardiovascular: Metallic click is present. I do not detect a murmur. Abdomen: The patient has a firm area in the right rectus muscle of approximately 7-8 cm, which is firm and tender. Genitourinary: He has scrotal edema and scrotal ecchymosis. Extremities: Lower extremities show 2+ peripheral edema. LABORATORY: I was called this morning early with an abnormal lab of a sodium of 114. I had them rerun this and the sodium was 117. The patient's creatinine had jumped from 0.9 to 1.3. Blood sugar was normal. White cell count has accelerated from 5.77 on admission now to 19.0. He has not run any fever. ASSESSMENT AND PLAN: 1. Patient's urinary retention and clotting continues to be addressed with continuous cycling of normal saline. Three-way catheter is managed per Dr. Higginbotham. 2. The patient does not report bladder spasm, but only pain associated with his hematoma. 3. CT scan from 09/05/2016 showed rectus and subcutaneous hematoma formation, but nothing and on an intra-abdominal basis that would account for that level of pain. 4. Symptomatic anemia. Aware. 5. Anticoagulation. The patient is on a heparin protocol drip, but with his hematoma and such, I think he needs a bit of a holiday. He is back on his Coumadin, which would not be in a therapeutic level yet, although we will check that level tomorrow. He is on a heparin protocol and yesterday the partial thromboplastin time was markedly elevated and they had to turn it down. It seems to have stabilized, with a partial thromboplastin time in the 70s. I have turned him down another notch to 10 mL/h and we will continue to follow the protocol. I would rather run him a bit subtherapeutic due to his ongoing bleeding issues. Hopefully, we can get him completely transitioned to the Coumadin in the near future. 6. Hypertension, adequately controlled. 7. Reflux disease. Stable. 8. Leukocytosis. The patient has no fever. His white cell count is up. There are multiple factors that could account for this, but at the present time I do not have any reason to believe that he is actively infected. 9. Patient's mechanical valve appears to be stable. There is no murmur. cc: MD Geovani Pettit MD
--- NOTE | 2016-09-08 12:39 | PROGRESS NOTE ---
DATE: 09/08/2016 SUBJECTIVE: Mr. Nolasco is experiencing some pain this morning in regards to bladder spasming. He also is reporting some nausea. OBJECTIVE: Vital Signs: Temperature 98.5 degrees, heart rate 67, respirations 14, blood pressure 121/58, O2 saturation 96% on room air. LABORATORY: White blood cells up to 19.04, hemoglobin 8.7, hematocrit 26.1, platelet count 232,000. Sodium is 117, potassium is 5.1, chloride is 82, carbon dioxide is 18. BUN is 26, creatinine up to 1.3. Glucose is 140. PHYSICAL EXAM: CV: Regular rate and rhythm. Mechanical click appreciated. Respiratory: Chest is clear to auscultation bilaterally. Normal respiratory effort. Abdomen: Nondistended and soft. He does have a firm area in the anterior abdomen that is due to his hematoma. Not particularly tender to palpation. Extremities: Patient continues to have some trace extremities x4. ASSESSMENT/PLAN: 1. Mariano hematuria. This seems to be about stable. Coumadin was initiated last night. Patient continues on a heparin drip as well. No evidence of any worsening hematuria. Neurology continues to follow the patient. Patient's continues to receive irrigation into his bladder per Urology. 2. Mechanical valve. Patient requires anticoagulation. On heparin and Coumadin as per above. 3. Anemia. Hemoglobin is overall stable. Continue to transfuse PRN. 4. Pain. Patient has been receiving IV morphine as well as Percocet. He has just taken a Percocet pill upon me entering the room. He also has [place] to use as needed. Dictated by RAIMUNDO Chaudhry for Chana Proctor MD cc: MD Geovani Wayne MD [facility]ITALNorma
[2016-09-08] MEDS: VITAMIN C PO SCH (21:16)
[2016-09-08] MEDS: LIPITOR PO SCH (21:17)
[2016-09-08] MEDS: COUMADIN PO SCH (21:17)
[2016-09-09] MEDS: PERIDEX MT SCH ×4 (01:50→22:24)
[2016-09-09] MEDS: PERCOCET-5 PO PRN ×2 (02:30→08:01)
[2016-09-09] MEDS: MORPHINE IV PRN ×4 (04:56→19:56)
[2016-09-09] MEDS: PRILOSEC PO SCH ×2 (04:56→06:24)
[2016-09-09] MEDS: HEPARIN 25,000 UNITS/D5W 25,000 UNIT/250 ML IV.SOLN IV SCH (04:57)
[2016-09-09 05:59] LABS: BASO% 0.1 % (0.0-0.8); EOS# 0.05 X1000 (0.0-0.7); EOS% 0.2 % (0.0-10.0); HEMATOCRIT 24.4 % (42.0-52.0); IMM GRAN# 0.36 X1000 (0.0-0.04); IMM GRAN% 1.5 % (0.0-0.5); INR 1.05; MANUAL DIFF NEEDED? YES; MCH 25.6 PG (27-31); MCHC 32.8 g/dL (33-37); MCV 78.2 FL (81-99); MONO# 3.53 X1000 (0.11-0.59); MONO% 14.7 % (1.7-9.3); MPV 10.2 FL (7.4-10.4); NEUT% 78.5 % (42.2-75.2); PLT 232 X1000 (130-400); PROTIME 11.1 Seconds (9.2-11.7); RBC 3.12 XMIL (4.7-6.1)
[2016-09-09 06:47] LABS: BANDS 3 % (0-1); LYMPHS 5 % (21-51); MONO 13 % (1-9)
[2016-09-09] MEDS: LOPID PO SCH (08:03)
[2016-09-09] MEDS: ZYRTEC PO SCH (08:03)
[2016-09-09] MEDS: FOLTX PO SCH (08:03)
[2016-09-09] MEDS: FLOMAX PO SCH ×3 (08:03→22:22)
[2016-09-09] MEDS: LEXAPRO PO SCH (08:03)
[2016-09-09] MEDS: ISOPTIN SR PO SCH ×3 (08:03→22:25)
[2016-09-09] MEDS: METAMUCIL POWDER PACKET PO SCH ×2 (08:09→22:24)
[2016-09-09] MEDS ORDERED: HEPARIN 25,000 UNITS/D5W 25,000 UNIT/250 ML IV.SOLN IV SCH (08:33)
[2016-09-09] MEDS ORDERED: MISC. PHARMACY COMMUNICATION SCH (11:00)
[2016-09-09] MEDS ORDERED: RELISTOR SUBQ ONE (11:22)
[2016-09-09 12:09] LABS: CALCIUM 8.8 mg/dL (8.8-10.2); POTASSIUM 5.3 mmol/L (3.5-5.1)
[2016-09-09] MEDS: COUMADIN PO SCH ×3 (12:43→22:21)
[2016-09-09] MEDS: OFIRMEV 1000 MG/ISOTONIC SOLN 1,000 MG/100 ML BOTTLE IV SCH ×2 (12:43→19:52)
[2016-09-09 12:59] LABS: ALLEN TEST YES; BE -5.5 mmoll (-3.0-3.0); BLOOD TYPE ARTERIAL; DRAW SITE R RADIAL; METHB 0.5 % (0.0-1.5); O2(CT) 9.9 mL/dL (15.0-23.0); PCO2(98.6) 31 mmHg (35-45); PO2(98.6) 66 mmHg (60-100); SAMPLE BLOOD; SAO2 97.7 % (95.0-100.0); THB 7.4 g/dL (11.5-17.4); pH(98.6) 7.39 (7.35-7.45)
[2016-09-09] MEDS ORDERED: LASIX IV ONE ×2 (14:00→14:59)
--- NOTE | 2016-09-09 15:40 | Diag Imaging Result Doc PS360 ---
EXAM: ABDOMEN/PELVIS W/O CONTRAST HISTORY: abd pain and swelling, TECHNIQUE: CT urogram without contrast COMMENT: There are fibrotic changes in the lung bases versus atelectasis which have not changed significantly since 09/05/2016. There is increasing anasarca in the flanks compared to the previous study. There is worsening constipation in the right colon with some equalization of small bowel contents in the distal small bowel. There is less stool in the left colon where there is some diverticulosis. There is diverticulosis in the sigmoid colon. Extending from the rectus abdominis muscle on the right now lobe extending posteriorly along the right pelvic sidewall and measuring in excess of 19.5 x 8.5 x 11 cm. This displaces the urinary bladder to the left. There is a Rodriguez catheter in the bladder. The appendix is not distended. There is some presacral edema. Otherwise the appearance of the abdomen and pelvis has not changed significantly since the previous study. IMPRESSION: Enlarging right rectus and retroperitoneal hematoma. Electronically signed by Mariano Rios 09/09/2016 3:38 PM
--- NOTE | 2016-09-09 19:10 | PROGRESS NOTE ---
DATE: 09/09/2016 CHIEF COMPLAINT: "Not sure when I'm going to get to go home." HISTORY OF PRESENT ILLNESS: Mr. Nolasco has had some intermittent waxing and waning pain overnight and has now gotten comfortable with medications. His is concerned about his fluctuating pain levels. She is uncertain about the Rodriguez being removed tomorrow giving all his ongoing issues. PHYSICAL EXAMINATION: Vital Signs: Patient is afebrile. Vital signs are stable. Cardiovascular: Regular rate and rhythm. Normal S1, S2. No murmurs, rubs, or gallops. Pulmonary: Lungs are clear to auscultation bilaterally without wheezes, rales, or rhonchi. Abdomen: Soft, nontender. Palpable rectus hematoma seems to be stable over the last 48 hours. No tenderness to palpation. Extremities: No clubbing, cyanosis, or edema. 2+ pulses. : Rodriguez catheter is in place with tea-colored urine. No rosette bleeding. Neurologic: Alert orient x3. No focal deficits. Gait is not tested and is resting in the bed during consultation. LABORATORY DATA: White count 2.4, hemoglobin 8, platelet count 232,000. Creatinine 1.9, PTT over the last 12-24 hours ranging anywhere from 60-80. IMAGING: CT abdomen and pelvis 09/09 showed an enlarging right rectus and retroperitoneal hematoma. ASSESSMENT AND PLAN: 1. Hematuria: Continue bladder irrigation and Rodriguez catheter as per Urology. Continue to monitor. 2. Mechanical heart valve: Continue anticoagulation at this time. I agree with a strict protocol with heparin to avoid any elevated levels. Maintaining his PTT around 60 would be ideal at this time to avoid excess bleeding or increasing further in his hematoma. 3. Anemia: His hemoglobin is stable at 8 at this time. Continue to monitor and transfuse as needed. 4. Pain: Likely related to his hematoma. Continue pain medication as you are doing. I discussed the difficulty of his case with his at length today. I will discuss his case with Dr. Diaz and Dr. Amos again in the morning when everybody is back in the office. 5. Hyponatremia: Dr. Obrien has been consulted for further evaluation of his sodium of 113, likely related to his worsening renal function with a creatinine of 1.9. cc: MD Geovani Wayne MD
--- NOTE | 2016-09-09 19:16 | CONSULTATION ---
DATE OF CONSULTATION: 09/09/2016 REASON FOR CONSULTATION: Hyponatremia and acute kidney injury. HISTORY OF PRESENT ILLNESS: Mr. Nolasco is a 76-year-old man with a history of mitral valve replacement, chronic anticoagulation, hyperlipidemia, hypertension. He had BPH according to the family and was treated by [facility] prostate. He had subsequent problems with gross hematuria, clotting, urinary retention. He has had multiple readmissions with pain and urinary retention. Ultimately on the he was admitted to the hospital with ongoing recurrent symptoms. He was taken to the operating room and had a suprapubic catheter placed. He has continued on bladder irrigation and he has had intermittent problems with severe pain. Over the last 2-3 days he has been having progressively worsening swelling, marked hyponatremia and rising BUN and creatinine, prompting the consultation with me this morning. Currently he is in pain and therefore defers all conversation to his . She states he is normally in very good health and ambulatory and meets his own personal needs. His pain has been typically resolved with irrigation but today despite irrigation and narcotics and IV Ofirmev he has ongoing severe pain. No vomiting. No shortness of breath. He is on room air. PAST MEDICAL HISTORY: As above. He also has ADD, atrial fibrillation, osteoarthritis, obstructive sleep apnea. ALLERGIES: Penicillin and phenolphthalein. HOME MEDICATIONS: Include atorvastatin, multivitamin, clindamycin, Lexapro, Lopid, Metamucil, metronidazole cream, temazepam, tramadol, verapamil. SOCIAL HISTORY: No current alcohol or tobacco. FAMILY HISTORY: Noncontributory. PHYSICAL EXAMINATION: Vital Signs: Blood pressure 127/64, heart rate 65, respirations 20, afebrile. Generally: He is in no respiratory distress but he is in obvious pain. Skin: Is warm and dry. HEENT: Conjunctivae are pink. Pupils are equal. Oropharynx is clear. Neck: Supple. Neck veins are distended. Trachea is midline. Heart: Regular with metallic heart tones, soft murmur. No rubs. Lungs: Have equal breath sounds. No crackles or wheezes. Abdomen: Distended and somewhat firm. Suprapubic catheter is in place. Bowel sounds are diminished. Modestly tender. Extremities: Have 3+ edema. No clubbing or cyanosis. LABORATORY DATA: Sodium 113, potassium 5.3, chloride 79, bicarbonate 17, BUN 33, creatinine 1.9. IMPRESSION: 1. Hyponatremia. Cause is not obvious. He has been receiving bladder irrigation but with normal saline to the best of my understanding. He did have initially order for sterile water with but discussion with pharmacy suggests that he has not had this irrigant for almost a week. Normal saline otherwise according to the floor staff. He has received narcotics and has been in pain and certainly both these things may increase your endogenous ADH production. No other obvious cause for syndrome of inappropriate antidiuretic hormone secretion. He has received a dose of tolvaptan in this morning. He currently is being fluid restricted aside from his irrigation. As such, we will observe his response to tolvaptan and not check urine electrolytes until tomorrow once this medicine has clear the system. 2. Volume overload. Again, will give 1 large dose of furosemide today and observe his response. 3. Abdominal pain. Concern for ongoing obstruction. CT of the abdomen has been ordered for today. 4. Acute kidney injury. Likely related to #3. No other testing is ordered until the CT results are back. I have reviewed his medications and no changes are required. cc: MD Geovani Delgado MD
[2016-09-09] MEDS ORDERED: NACL 3% 150 ML IV SCH ×2 (20:00)
[2016-09-09] MEDS ORDERED: NACL 3% 500 ML IV SCH (22:00)
[2016-09-09] MEDS: NS 500 ML IV SCH (23:46)
[2016-09-10] MEDS: OFIRMEV 1000 MG/ISOTONIC SOLN 1,000 MG/100 ML BOTTLE IV SCH ×3 (03:15→20:41)
[2016-09-10] MEDS ORDERED: HEPARIN 25,000 UNITS/D5W 25,000 UNIT/250 ML IV.SOLN IV SCH (05:00)
[2016-09-10] MEDS: PRILOSEC PO SCH (06:35)
[2016-09-10 06:39] LABS: BASO% 0.1 % (0.0-0.8); EOS# 0.07 X1000 (0.0-0.7); EOS% 0.4 % (0.0-10.0); HEMATOCRIT 22.2 % (42.0-52.0); HEMOGLOBIN 7.4 g/dL (14.0-18.0); IMM GRAN# 0.25 X1000 (0.0-0.04); IMM GRAN% 1.3 % (0.0-0.5); LYMPH% 4.7 % (20.5-51.1); MCH 26.1 PG (27-31); MCHC 33.3 g/dL (33-37); MCV 78.2 FL (81-99); MONO# 3.56 X1000 (0.11-0.59); MONO% 18.6 % (1.7-9.3); MPV 9.9 FL (7.4-10.4); NEUT% 74.9 % (42.2-75.2); PLT 228 X1000 (130-400); RBC 2.84 XMIL (4.7-6.1)
[2016-09-10 06:59] LABS: CALCIUM 8.4 mg/dL (8.8-10.2); POTASSIUM 5.1 mmol/L (3.5-5.1); TOTAL BILIRUBIN 0.51 mg/dL (0.20-1.00); TOTAL PROTEIN 5.1 g/dL (6.3-8.3)
[2016-09-10] MEDS ORDERED: NACL 3% 150 ML IV ONE (07:30)
[2016-09-10 07:34] LABS: INR 1.92
[2016-09-10 07:54] LABS: MANUAL DIFF NEEDED? NO
[2016-09-10] MEDS: PERIDEX MT SCH ×2 (08:30→20:42)
[2016-09-10] MEDS: ISOPTIN SR PO SCH ×2 (08:30→20:42)
[2016-09-10] MEDS: COUMADIN PO SCH (08:30)
[2016-09-10] MEDS: FLOMAX PO SCH ×2 (08:30→20:42)
[2016-09-10] MEDS: METAMUCIL POWDER PACKET PO SCH ×3 (08:31→20:48)
[2016-09-10] MEDS ORDERED: LASIX IV SCH (09:00)
[2016-09-10] MEDS ORDERED: DULCOLAX PR ONE (09:19)
--- NOTE | 2016-09-10 09:35 | PROGRESS NOTE ---
DATE: 09/09/2016 SUBJECTIVE: The patient apparently was still struggling with pain through the previous day. I saw the patient in the morning and had multiple interactions with consultants and with his primary care doctor throughout the day. The patient's again pointed out that his abdomen was enlarging and that his pain was poorly controlled, and asked me what I was going to do about it. He has not been eating well and has intermittent pain control. VITAL SIGNS: 97.7, 65, 18, 122/62, 97% saturated on room air. PHYSICAL EXAMINATION: General: He is a well-developed, white male who is in no acute distress. He is lying in bed with his eyes closed. He does respond to questions. Abdomen: The patient's abdomen is tender with swelling and tenseness in the right rectus abdominis extending laterally a bit. This may be slightly bigger when compared to yesterday. Genitalia: He still has scrotal edema and ecchymoses. Extremities: He has edema in his legs on both sides from the hip to toes. This is at least 1+ edema. Heart: Regular with a metallic click and no murmur. LABORATORY: White cell count is elevated at 24.06, hemoglobin 8. Patient's sodium had dropped to 110 and creatinine is up to 1.9. ASSESSMENT AND PLAN: 1. Patient's hyponatremia has reached more dangerous proportions. I have consulted Dr. Kory Obrien and spoke with him on 2 occasions throughout the day about our overall plan. Dr. Obrien felt that he had some form of syndrome of inappropriate antidiuretic hormone secretion and he will be handling the replenishment of his sodium. We entertained the transport to the intensive care unit and this eventually took place later in the day. 2. The patient's enlarging abdomen and continued pain have prompted me to order another CT scan of the abdomen. Those results came back later in the day and showed enlarging rectus hematoma extending into the retroperitoneum and compressing part of the bladder. 3. The patient's elevated white cell count is still inexplicable as the patient is afebrile and there were no obvious signs or sites of infection. We will continue to monitor this. 4. The patient's anticoagulation has been addressed. I have turned his heparin down to 10 mL an hour and this has kept his partial thromboplastin time in the 60s which I think is appropriate. We are pushing forward on his Coumadin to try and get the INR therapeutic. 5. The patient's hematuria seemed to be clearing. On visual examination, his urine was no longer red but had a pinkish-orange tinge to it but was more clear than previously. 6. As stated earlier, I had [address] Obrien and communicated with Dr. Diaz on multiple occasions yesterday. I think we have solid plan going forward. The patient will be staying in the intensive care unit until we see further recovery from the electrolyte abnormalities, hematuria, and coagulation difficulties. cc: MD Geovani Pettit MD
[2016-09-10] MEDS: PERICOLACE PO SCH ×2 (09:49→20:42)
[2016-09-10] MEDS: MORPHINE IV PRN ×3 (09:52→19:17)
--- NOTE | 2016-09-10 09:56 | Diag Imaging Result Doc PS360 ---
CHEST-1 VIEW - 09/10/2016 INDICATION: Volume overload/ mechanical valve TECHNIQUE: COMPARISON: CT from 09/09/2016 FINDINGS: There is a mechanical mitral valve and sternotomy wires. There is cardiomegaly. Pulmonary vascularity is grossly normal. There is significant right hemidiaphragm elevation stable from other exams. No significant infiltrates. IMPRESSION: Cardiomegaly. Right hemidiaphragm elevation. No acute abnormality. Electronically signed by Guido Ellington 09/10/2016 9:54 AM
--- NOTE | 2016-09-10 11:09 | PROGRESS NOTE ---
DATE: 09/10/2016 SUBJECTIVE: The events of the weekend were reviewed. In summary, on Saturday, the patient experienced an increasing pain in his abdomen and flank. The patient was noted to have a significant decrease in his sodium to 115. The patient's pain medications were adjusted. A dose of Samsca was provided. Unfortunately, despite intervention, the patient continued to have significant pain. His sodium level remained considerably low. A CT scan of the abdomen and pelvis was performed, revealing an enlarging right rectus and retroperitoneal hematoma. Dr. Obrien was consulted for both hyponatremia and acute renal failure. This morning, the patient is somewhat somnolent, but comfortable. His vital signs remained stable. He denies fevers, chills, shortness of breath, or chest discomfort. Thus far, he has tolerated hypertonic saline well. OBJECTIVE: Vital Signs: T-max 98.7 degrees, heart rate 60 to 66, respirations 9-20, blood pressure 112 to 127/51 to 64. General: Well nourished, well developed, in no acute distress. Cardiovascular: Regular rate and rhythm. No significant murmurs, rubs, or gallops. A mechanical click is identified. Pulmonary: Clear to auscultation bilaterally. Abdomen: Diffusely tender, without guarding or rebound. Positive bowel sounds. Extremities: Moves all extremities well. No significant clubbing or cyanosis. Patient has 1 to 2+ lower extremity edema bilaterally. Dermatologic Evaluation: Reveals multiple ecchymoses. LABORATORY DATA: White blood cell count 19.14, hemoglobin 7.4, hematocrit 22.2 , platelet count 228,000. PT 21.0, INR is 1.9. Sodium 116, potassium 5.1, chloride 83, bicarb 18, BUN 37, creatinine 2.1. Glucose 107, calcium 8.4, total bilirubin 0.51, total protein 5.1, albumin 3.0. Alkaline phosphatase 70, AST 15, ALT 10. ASSESSMENT AND PLAN: 1. Urinary retention-at this point, this appears to be a secondary issue. Patient is being treated with 3-way irrigation. His urine has cleared. For now, we will continue Rodriguez catheter placement. We will defer decreasing and ultimately discontinuing irrigation to urology. 2. Bladder spasms-we will continue symptomatic management. 3. Right rectus and retroperitoneal hematomas-this is quite concerning. The patient has manifested significant anemia, although hemodynamics have remained stable. At this point, I see no acute indication for surgical or intravascular intervention. For now , we will continue supportive care. We will discontinue heparin therapy. We will transfuse as described below. 4. Symptomatic anemia-we will type and cross 2 units of packed red blood cells and transfuse when ready. Once again, we will follow this closely. 5. Anticoagulation. The patient has a mechanical valve, thus anticoagulation is mandatory. Unfortunately, we have experienced a life-threatening bleed. We will discontinue heparin drip. Patient is approaching therapeutic range with Coumadin. At this point , we will not reverse this, although this will need to be followed closely as well. We will further discuss this with Dr. Proctor. 6. Leukocytosis-patient has no evidence of infection at present time. He certainly is at risk for an infected hematoma or urinary infection. For now, we will follow closely. I suspect this may be secondary to demargination. 7. Acute renal failure-this likely is secondary to hypovolemia in the setting of acute bleed versus retroperitoneal bleeding. The patient's creatinine increased from 1.9 -2.1 today. At this point, we will correct the anemia as described above. We will follow along with Dr. Obrien. There is no acute indication for hemodialysis at present time. 8. Hyponatremia-I suspect this is secondary to a combination of acute renal failure and syndrome of inappropriate antidiuretic hormone secretion in the setting of acute pain. The patient is achieving adequate improvement in sodium level with hypertonic saline. We will follow this along with Dr. Obrien as well. 9. Hypertension-patient's blood pressure is acceptable at present time. We will continue his verapamil for now. We will follow this, especially in the setting of his bleeding. 10. Reflux disease with associated dysphagia-we will continue patient on a proton pump inhibitor. 11. Constipation-the patient was given a dose of Relistor yesterday. We will continue Metamucil. We will add a Dulcolax suppository and Colace today. Once again, this will be followed. 12. Mechanical mitral valve-as above, unfortunately the patient is at high risk with discontinuing anticoagulation. Because of his volume overload state, we will check an echocardiogram to confirm he has not developed associated failure or thrombus. I suspect the volume overload is largely secondary to his retroperitoneal hematoma and associated obstructive symptoms, acute renal failure, and volume resuscitation. We will follow this. DISPOSITION: At this point, patient continues to require snf care in the hospital setting. We will plan discharge home once appropriate. cc: Geovani Diaz MD MTDD
--- NOTE | 2016-09-10 11:18 | PROGRESS NOTE ---
DATE: 09/10/2016 SUBJECTIVE: Mr. Nolasco is resting quietly in bed. Head of the bed is elevated. He is able to focus. He is able to follow commands. He denies any complaints. No headache. No dizziness. No chest pain. No increased work of breathing. is at his bedside. OBJECTIVE: Temperature 97.6 degrees, blood pressure 111/53, heart rate 50, respirations are 10. He has had 5160 in. He has had 7000 out. He continues with 414 per bladder irrigation with 206 per Rodriguez. The patient remains on room air. Saturation of 99%. LABORATORY DATA: Sodium 115, potassium 5.1, chloride 83, CO2 18, BUN 37, creatinine 2.1, glucose 107, anion gap 14, calcium 8.4, albumin of 3. White count 19.14, hemoglobin 7.4 , hematocrit 22.2 with a platelet count of 228,000. PHYSICAL EXAMINATION: General: This is a 76-year-old white male. He is currently resting in bed. He is in no acute distress. He appears chronically ill. Skin: Warm and dry. HEENT: Normocephalic, atraumatic. Conjunctiva is pale. He has JULISA. Mucous membranes are dry. Neck: Supple. Trachea midline. No JVD. Cardiovascular: Regular rate and rhythm. He does have a metallic click. Soft murmur noted. No gallop. He is sinus to sinus rhythm on the monitor. Lungs: Clear to auscultation anteriorly. Equal excursion on room air. Abdomen : Slightly distended. Soft, nontender. Positive bowel sounds. Patient has a suprapubic catheter in place. Extremities: He has 2 to 3+ lower extremity edema. No clubbing or cyanosis. Neurological: He is alert and oriented to person and to place. ASSESSMENT AND PLAN: 1. Hyponatremia. Patient has had 3% normal saline over the night. His sodium has improved to 115. We will transfuse 150 mL of 3% normal saline this a.m. x1 hour rechecking his labs an hour after this infusion has been completed and again checking his sodium levels every 4 hours with set limits for notification. Patient does continue in some discomfort secondary to his suprapubic catheter and chronic irrigation. No clear SIADH though pain, narcotics, nausea may precipitate it. 2. Fluid volume overload. Patient was given a large dose of Lasix yesterday. He has had adequate urine out though again he continues to receive bladder irrigation. This continues to be followed by Dr. Amos 3. Acute kidney injury. Again this is related to #1 and #3. This remains stable. No indications for intervention. I would like to thank you for allowing us to follow with this patient. Seen, data reviewed, discussed with Padilla Payne on 09/10/16. I agree with the above assessment and plan of care. rg Dictated by RAYRAY De Oliveira for Kory Obrien MD cc: RAYRAY De Oliveira MD Scott A. Matthews, MD [facility]ALTHNorma
[2016-09-10] MEDS ORDERED: NS 500 ML ONE (12:32)
--- NOTE | 2016-09-10 14:06 | ECHO REPORT ---
ORDER DATE: 09/10/2016 ECHOCARDIOGRAPHIC MEASUREMENTS: 1. Interventricular septum 1.3. Left ventricular posterior wall 1.3. Diastolic diameter 5.1. Left atrium 5.7. Aorta 4. Aortic valve leaflets were trileaflet, mildly sclerosed, opening normally. Pulmonic valve was normal. Tricuspid valve was normal. Mechanical St. Ramiro's valve was noted in the mitral position functioning appropriately. 2. Normal left ventricular cavity size. Estimated ejection fraction of 60%. There is basal hypokinesis noted. 3. Peak velocity across the aortic valve was 2 m/sec. There is no aortic stenosis or regurgitation. There is mild to moderate tricuspid regurgitation. Peak velocity across the tricuspid valve was 3.4 m/sec. Pulmonary artery systolic pressure of 58 mmHg. There is pulmonary arterial hypertension. 4. Inflow velocity across the mechanical mitral valve was 2.2 m/sec. By pressure half time mitral valve area 1.7 square cm with a mean gradient of 5 mmHg in keeping with mechanical prosthetic mitral valve associated with mild mitral regurgitation. 5. There is no pericardial effusion or obvious intracardiac mass or thrombus seen. cc: MD Geovani Basilio MD
--- NOTE | 2016-09-10 14:19 | PROGRESS NOTE ---
DATE: 09/10/2016 SUBJECTIVE: Mr. Nolasco reports that he has pain today related to his rectus hematoma. OBJECTIVE: Vital Signs: Temperature 98.7 degrees, heart rate 60, respirations 14, blood pressure 111/53, O2 saturation 90% on room air. LABS: White blood cells 19.14, hemoglobin 7.4, hematocrit 22.2, platelets 228, 000. INR is 1.9, PT 21.0. Sodium is 116, potassium 5.1, BUN 37, creatinine 2.1, glucose 107. Chest x-ray this morning shows cardiomegaly with right hemidiaphragm. No acute abnormality. PHYSICAL EXAM: CV: S1, S2 heard. Regular rate and rhythm. Mechanical click noted. Respiratory: Chest is essentially clear to auscultation bilaterally. Normal respiratory effort. Gastrointestinal: Abdomen is tender related to his hematoma. There is some firmness as related to hematoma. Positive bowel sounds. Extremities: Patient has some pedal edema bilaterally. ASSESSMENT AND PLAN: 1. Hematuria. Urine is clear today. He continues to get bladder irrigation and Rodriguez catheter per urology. 2. Mechanical valve. The patient requires anticoagulation. At this time, the patient's heparin drip has been discontinued. His INR is 1.92. We agree with doing some sort low level anticoagulation either with a heparin drip or with Coumadin with an INR goal of 1.8 to about 2.2. Monitor closely. 3. Rectus hematoma. Worsening. Anticoagulation as per above. Will also need to continue to transfuse p.r.n. 4. Anemia. Patient's hemoglobin is down to 7.4. He is getting 2 units of packed red blood cells once they are ready. Monitor closely and continue to transfuse as needed. 5. Hyponatremia. As per Dr. Obrien. Patient has received 3% NACL. Dictated by RAIMUNDO Chaudhry for Chana Proctor MD cc: MD Geovani Wayne MD I have seen and examined the patient and agree with above assessment and plan. Stop heparin and coumadin and monitor INR closely. Transfuse. Chana Proctor MD [facility]ITALNorm[facility]
--- NOTE | 2016-09-10 18:14 | CONSULTATION ---
DATE OF CONSULTATION: 09/10/2016 HISTORY: Mr. Nolasco has had an uneventful morning. He was transferred to intensive care unit secondary to agitation and low sodium. He is receiving 1 unit of packed red blood cells currently. He reports persistent pain just to the right of his umbilicus. OBJECTIVE: Vital Signs: Temperature 97.9 degrees, pulse 66, blood pressure 122/44. General: No acute distress. Abdomen: Nontender in the upper quadrants, tender to palpation in the right lower quadrant. No involuntary guarding. No rebound tenderness. Dressing is placed over the suprapubic tube site. Genitourinary: Rodriguez catheter in place draining straw-colored urine. PERTINENT LABORATORY: Hematocrit 22, white cell count of 19,000, creatinine of 2.1. ASSESSMENT: A 76-year-old male with hemorrhagic cystitis. His bladder is currently managed with indwelling Rodriguez catheter with continuous bladder irrigation drip at a very slow rate. I turned off the irrigation and discussed with the patient conservative approach. We will observe overnight off the irrigation and at some point in the near future try a voiding trial. PLAN: 1. Keep Rodriguez catheter to gravity drainage. 2. I discontinued continuous bladder irrigation. 3. We will follow. cc: MD Geovani Reyna MD
[2016-09-11] MEDS: OFIRMEV 1000 MG/ISOTONIC SOLN 1,000 MG/100 ML BOTTLE IV SCH (04:06)
[2016-09-11] MEDS: MORPHINE IV PRN ×3 (04:48→20:59)
[2016-09-11 05:44] LABS: BASO% 0.1 % (0.0-0.8); EOS# 0.11 X1000 (0.0-0.7); EOS% 0.9 % (0.0-10.0); HEMATOCRIT 22.5 % (42.0-52.0); HEMOGLOBIN 7.6 g/dL (14.0-18.0); IMM GRAN# 0.16 X1000 (0.0-0.04); IMM GRAN% 1.3 % (0.0-0.5); LYMPH# 0.75 X1000 (1.2-3.4); MANUAL DIFF NEEDED? YES; MCH 27.1 PG (27-31); MCHC 33.8 g/dL (33-37); MCV 80.4 FL (81-99); MONO# 2.01 X1000 (0.11-0.59); MPV 9.3 FL (7.4-10.4); NEUT% 75.7 % (42.2-75.2); PLT 215 X1000 (130-400)
[2016-09-11 06:04] LABS: ALBUMIN 2.7 g/dL (3.5-5.0); CALCIUM 8.2 mg/dL (8.8-10.2); POTASSIUM 4.7 mmol/L (3.5-5.1); TOTAL BILIRUBIN 0.62 mg/dL (0.20-1.00); TOTAL PROTEIN 4.7 g/dL (6.3-8.3)
[2016-09-11 06:19] LABS: INR 3.42; PROTIME 38.8 Seconds (9.2-11.7)
[2016-09-11] MEDS: PRILOSEC PO SCH (07:06)
[2016-09-11 07:38] LABS: BANDS 4 % (0-1); LYMPHS 6 % (21-51); MONO 16 % (1-9)
[2016-09-11] MEDS: FLOMAX PO SCH ×2 (08:06→20:59)
[2016-09-11] MEDS: PERICOLACE PO SCH ×2 (08:06→20:58)
[2016-09-11] MEDS: PERIDEX MT SCH ×2 (08:06→20:58)
[2016-09-11] MEDS: METAMUCIL POWDER PACKET PO SCH ×2 (08:06→20:59)
[2016-09-11] MEDS ORDERED: NS 250 ML ONE (08:48)
[2016-09-11] MEDS: ISOPTIN SR PO SCH ×2 (08:57→20:59)
--- NOTE | 2016-09-11 08:59 | PROGRESS NOTE ---
DATE: 09/11/2016 SUBJECTIVE: Mr. Nolasco reports that he is having back pain today related to having to lie in bed. He reports that his abdominal pain is well controlled at this time. OBJECTIVE: Vital signs: Temperature 98.3 degrees, heart rate 57, respirations 16, blood pressure 111/49, O2 saturation 94% on room air. Cardiovascular: S1, S2 heard. No murmurs, gallops, or rubs appreciated. Mechanical click noted. Respiratory: Chest is clear to auscultation bilaterally with normal respiratory effort. Gastrointestinal: The patient has an area of firmness related to his rectus hematoma below the umbilicus, in the suprapubic region. Nontender to palpation. Extremities: No bilateral extremity edema noted. LABORATORY DATA: White blood cells 12.60, hemoglobin 7.6, hematocrit 22.5, platelets 215,000. INR is 3.42, PT is 38.8. Sodium 122, potassium 4.7, chloride 90, CO2 of 20, BUN 36, creatinine 2.1, glucose is 92. ASSESSMENT AND PLAN: 1. Lifelong anticoagulation. The patient does require lifelong anticoagulation due to having a mechanical valve in place. He is no longer having hematuria. Urology has come and turned off the urine irrigation. The patient now has this rectus hematoma. He is also continuing to have anemia. INR is up to 3.42. His Coumadin and his heparin have now been discontinued due to the therapeutic level of his INR. Plan at this time is to monitor closely and let his INR kind of drift back down. The goal is to have some sort of low-level anticoagulation given his ongoing bleeding. Will continue to monitor closely. No need for vitamin K at this time. 2. Hematuria. This seems to have improved. Further management per Radiology. 3. Anemia. The patient will receive another 2 units of packed red blood cells today. Continue to monitor and transfuse as needed. 4. Pain, currently well controlled. Continue current management. Dictated by RAIMUNDO Chaudhry for Chana Proctor MD cc: MD Geovani Wayne MD I have seen and examined Mr. Nolasco and agree with above A/P. He had hypotension overnight and worsening pain. He is off of anticoagulation with plans to let his INR drift down to a range of 1.8-2.2 for now. Urine continues clear. Chana Proctor MD MTDD
--- NOTE | 2016-09-11 09:48 | PROGRESS NOTE ---
DATE: 09/11/2016 SUBJECTIVE: Mr. Nolasco reports a decent night overnight. He has generalized back discomfort. He denies suprapubic tenderness. His urine has been clear per nursing staff overnight. His irrigation has been turned off. OBJECTIVE: Vital Signs: Temperature 98 degrees, pulse 61, BP 101/39. General: No acute distress. Abdomen: Nontender, with the exception to the right lower quadrant around the site of the hematoma. Genitourinary: Rodriguez catheter in place draining light straw-colored urine. LABORATORY DATA: White cell count of 13,000. Hematocrit 22.5, platelet count 215,000, creatinine of 2.1. ASSESSMENT: A 76-year-old male with hemorrhagic cystitis who currently appears to be stable from the urologic standpoint. He is being transitioned to Coumadin. Of note, his INR was 3.42 on 09/11/2016. PLAN: Keep Rodriguez catheter today and will discontinue it in the morning, as long as his urine stays relatively clear. cc: MD Geovani Reyna MD
--- NOTE | 2016-09-11 11:24 | PROGRESS NOTE ---
DATE: 09/11/2016 SUBJECTIVE: He is awake and alert. He has some complaint of back pain and complaining of the immobility but no shortness of breath, nausea, or vomiting. Abdominal pain has subsided. OBJECTIVE: Vital Signs: Blood pressure 100/38, heart rate 61, respirations 16, afebrile. Intake 3.9 L. Output 6.9 L. Physical Examination: General: No acute distress. Skin: Warm and dry with ecchymoses. HEENT: Conjunctivae are pink. Pupils are equal. Neck: Neck veins are 8 cm. Trachea is midline. Heart: Regular. Somewhat bradycardic in the 60s. No gallops or murmurs. Lungs: Have equal breath sounds. No crackles or wheezes. Abdomen: Soft and nontender. Less distended and again certainly less tender. Bowel sounds are diminished. Extremities: Have 2 to 3+ edema. No clubbing or cyanosis. Laboratory Data: Sodium 122, potassium 4.7, chloride 90, bicarbonate 20, BUN 36, creatinine 2.1, albumin 2.7. Hemoglobin 7.6. IMPRESSION: 1. Acute kidney injury. Improved urine output and his labs have stabilized. No changes. 2. Hyponatremia. His sodium is 122 which is still of course below target but improving slowly. We will allow him to continue to diurese and observe his response. 3. Anemia. He is receiving a transfusion. cc: MD Geovani Delgado MD
[2016-09-11] MEDS: LEXAPRO PO SCH ×2 (11:47→11:48)
[2016-09-11] MEDS ORDERED: DULCOLAX PR ONE (12:03)
--- NOTE | 2016-09-11 12:37 | PROGRESS NOTE ---
DATE: 09/11/2016 SUBJECTIVE: Overall, patient's clinical condition has improved slightly from yesterday. The patient's p.o. intake has improved. His abdominal discomfort has decreased. He continues to have a lumbar spine pain. He denies fevers, chills, nausea, vomiting, shortness of breath, or chest discomfort. Echocardiogram yesterday revealed no evidence of significant pathology to the mechanical valve. Chest x-ray revealed no acute abnormality. The patient's vital signs remained stable throughout the last 24 hours. OBJECTIVE: T-max is 99.1, heart rate 57-61, respirations were 14-18, blood pressure 101-111/39- 49.General: Well nourished, well developed, no acute distress. Cardiovascular: Regular rate and rhythm. No significant murmurs, rubs, or gallops. Mechanical click is noted. Pulmonary: Clear to auscultation anteriorly. Abdomen: Soft, minimally distended. Tenderness to palpation without guarding or rebound. Positive bowel sounds. Extremities: Moves all extremities well. No significant clubbing or cyanosis. Patient has 1+ lower extremity edema bilaterally. Dermatologic: Evaluation reveals no evidence of rash. LABORATORY DATA: White blood cell count 12.60, hemoglobin 7.6, hematocrit 22.5, platelet count 215,000, PT 38.8, INR 3.42, sodium 122, potassium 4.7, chloride 90, bicarb 20, BUN 36, creatinine 2.1. Glucose 92, calcium 8.2, total bilirubin 0.62. Total protein 4.7, albumin 2.7, alkaline phosphatase 67, AST 11. ALT 9. ASSESSMENT AND PLAN: 1. Urinary retention-patient's urologic evaluation is slowly improving. The patient has no evidence of significant hematuria at present time. The patient's irrigation will be held today. We will follow him clinically with Dr. Amos. His Rodriguez will remain intact. 2. Bladder spasms-we will continue symptomatic management. 3. Right rectus and retroperitoneal hematomas-I remain concerned in this regard. Patient has no evidence of compartment syndrome with neurological deficits to the lower extremities at present time. After transfusion yesterday, patient's hemoglobin and hematocrit are essentially stable. For this reason, it appears patient continues to have an active bleed. We will address anticoagulation as below. Hemodynamically, he is stable. At this point, I do not feel aggressive intervention is warranted. 4. Symptomatic anemia-we will transfuse 2 additional units today. We will continue to follow this. 5. Anticoagulation-as noted on previous evaluations, patient has developed hematomas associated with both Lovenox and heparin therapy. We have transitioned to Coumadin. His INR is slightly higher than I would prefer, but the risk of reversing outweighs the benefits. I discussed this with Dr. Proctor. For now, we will continue to hold his Coumadin and follow daily INR evaluations. Should patient develop progressive symptoms, we will consider reversing this. 6. Leukocytosis-patient has achieved improvement with time. I suspect this was secondary to demargination. We will remain aware. 7. Acute renal failure-patient's creatinine has stabilized at 2.1. He has adequate urine output. We will continue to follow along with Dr. Obrien. 8. Hyponatremia-I am encouraged with patient's slow improvement. I suspect this is secondary to SIADH associated with his significant hematoma/pain. We will continue to follow. 9. Hypertension - patient's blood pressure is acceptable currently. We will follow. 10. Reflux disease with associated dysphasia-we will continue proton pump inhibitor. 11. Constipation-The patient was treated well with Delores-Colace and a Dulcolax suppository yesterday. We will repeat a Dulcolax suppository today. If this is not effective, we will consider soapsuds enemas. 12. Mechanical mitral valve-as above, this has complicated patient's bleeding tissue. At this point, the risk of being off anticoagulation outweighs the benefit from a bleeding standpoint. For now, we will follow. 13. Disposition-at this point, patient continues to require a alf care in a hospital setting. We will plan discharge home, order rehab once appropriate. cc: Geovani Diaz MD
[2016-09-11] MEDS: RESTORIL PO PRN (23:30)
[2016-09-12 05:23] LABS: HEMATOCRIT 29.2 % (42.0-52.0); INR 2.72; MCH 28.2 PG (27-31); MCHC 34.2 g/dL (33-37); MCV 82.3 FL (81-99); PROTIME 30.4 Seconds (9.2-11.7); RBC 3.55 XMIL (4.7-6.1)
[2016-09-12 05:30] LABS: ALBUMIN 2.8 g/dL (3.5-5.0); CALCIUM 8.7 mg/dL (8.8-10.2)
[2016-09-12] MEDS: PRILOSEC PO SCH (07:10)
[2016-09-12] MEDS: LEXAPRO PO SCH (08:17)
[2016-09-12] MEDS: FLOMAX PO SCH ×2 (08:17→20:25)
[2016-09-12] MEDS: ISOPTIN SR PO SCH ×2 (08:19→20:25)
[2016-09-12] MEDS: FOLTX PO SCH (08:19)
[2016-09-12] MEDS: PERICOLACE PO SCH ×2 (08:19→20:25)
[2016-09-12] MEDS: ZYRTEC PO SCH (08:19)
[2016-09-12] MEDS: LOPID PO SCH ×2 (08:20→20:25)
[2016-09-12] MEDS: METAMUCIL POWDER PACKET PO SCH ×2 (08:26→20:24)
[2016-09-12] MEDS: PERIDEX MT SCH ×2 (08:28→20:24)
--- NOTE | 2016-09-12 09:14 | PROGRESS NOTE ---
DATE: 09/12/2016 SUBJECTIVE: He states he is no better but he does admit that he has not had any more paroxysms of pain in the last 36 hours. He is eating his breakfast. He has had some problems with his bowels and has had 2 enemas with positive results. OBJECTIVE: Vital Signs: Blood pressure 131/63, heart rate 60, respirations 14, afebrile. Intake 3.4 L. Output 3.5 L. Physical Examination: General: No acute distress. Skin: Warm and dry. Neck: Neck veins are not distended. Trachea is midline. Heart: Regular. No gallops. Lungs: Have equal breath sounds. No crackles or wheezes. Abdomen: Soft and not obviously tender. Still distended. Bowel sounds are present. Extremities: Have 2+ edema. No clubbing or cyanosis. Laboratory Data: Sodium 123, potassium 4, chloride 91, bicarbonate 19, BUN 33, creatinine 1.8. IMPRESSION: 1. Acute kidney injury. Labs have stabilized. Urine output is improved. Observe. 2. Hyponatremia. This is low but progressive improvement. No changes. 3. Acid-base. Stable. 4. Abdominal hematoma. Appears clinically to be more stable. No changes in therapy. cc: MD Geovani Delgado MD
[2016-09-12] MEDS: MORPHINE IV PRN ×2 (09:54→15:14)
[2016-09-12] MEDS: NORCO-5 PO PRN (11:27)
--- NOTE | 2016-09-12 13:17 | PROGRESS NOTE ---
DATE: 09/12/2016 SUBJECTIVE: Mr. Nolasco is having issues of urinary retention this morning. He has some increased abdominal pain, mainly in the suprapubic region. OBJECTIVE/VITAL SIGNS: Temperature 97.9 degrees, heart rate 63, respirations 13 , blood pressure 111/54, O2 saturation 96% on room air. LABORATORY: White blood cells 12.26, hemoglobin 10.0, hematocrit 29.2, platelets 180. INR 2.72. PT 30.4. Sodium 123, potassium 4.0, chloride 91, CO2 19, BUN 33, creatinine 1.8 , glucose 104. PHYSICAL EXAM: CV: Regular rate and rhythm. S1, S2 heard with no murmurs, gallops, rubs appreciated. Mechanical click noted. Respiratory: Chest is clear to auscultation bilaterally with normal respiratory effort. Abdomen: Distended. He has some tenderness in the left and right lower quadrants and the suprapubic region. Positive bowel sounds. Extremities: Patient has 1+ bilateral extremity edema to the ankles. ASSESSMENT AND PLAN: 1. Lifelong anticoagulation. Patient does have a mechanical valve that requires lifetime anticoagulation. Patient also has a rectus hematoma. Plan will be to try to keep him at a low level of anticoagulation as previously discussed. Patient's INR is 2.72. We would advise continuing to hold both Coumadin and heparin or Lovenox at this time. Recheck INR tomorrow. If INR is close to 2 to 1.8, we would recommend restarting a low dose of Coumadin. The patient was previously on 4 mg once daily. We would re-initiate his Coumadin at that level. He will need to be monitored closely for bleeding. 2. Rectus hematoma. Recently increased in size. Patient required 2 units of packed red blood cells on the and then on the third of September. Hemoglobin is improved and stable at this time. Continue to monitor and transfuse as needed. 3. Mechanical valve. Anticoagulation as per above. 4. Hyponatremia. Improving. Continue management as per Dr. Obrien. 5. Urinary retention as per Dr. Amos/Dr. Higginbotham. The catheter was removed. 6. Pain. Currently well controlled with hydrocodone and morphine as needed. Dictated by RAIMUNDO Chaudhry for Chana Proctor MD cc: MD Geovani Wayne MD I have seen and examined Mr. Nolasco and agree with the above A/P. Rectus hematoma appears to be stabilizing since his hemoglobin is improved. Restart Coumadin tomorrow. Chana ROBLERO
[2016-09-12] MEDS: PERCOCET-5 PO PRN ×2 (17:22→21:01)
--- NOTE | 2016-09-12 17:27 | PROGRESS NOTE ---
DATE: 09/12/2016 SUBJECTIVE: Overall, patient's condition continues to very slowly improve. This morning, patient's catheter was removed. This afternoon, unfortunately, he has not spontaneously voided urine. The patient has been treated with Dulcolax, followed by soapsuds enema for his constipation. He has achieved some improvement. He remains very weak. He continues to have intermittent pain associated with his hematoma. He denies fevers, chills, nausea, vomiting, shortness of breath, or chest discomfort. OBJECTIVE: Vital signs: Temperature maximum 98.4 degrees, heart rate 57-66, respirations 13-16, blood pressure 109-144/54-66. General: Well nourished, well developed, in no acute distress. Cardiovascular: Regular rate and rhythm. No significant murmurs, rubs, or gallops. Mechanical click is noted. Pulmonary: Clear to auscultation anteriorly. Abdomen: Soft, slightly distended. Tenderness to palpation in the right lower and mid quadrants, positive bowel sounds. Extremities: Moves all extremities well. No significant clubbing or cyanosis. Patient has 1+ lower extremity edema bilaterally. Dermatologic: Evaluation reveals no evidence of rash. LABORATORY DATA: White blood cell count 12.26, hemoglobin 10, hematocrit 29.2, platelet count 180,000, PT 30.4, INR is 2.72. Sodium 123, potassium 4, chloride 91, bicarb 19, BUN 33, creatinine 1.8, glucose 104. Calcium 8.7, phosphorus 3.6, albumin 2.8. ASSESSMENT AND PLAN: 1. Urinary retention-as noted on previous notes, this likely is secondary to a combination of bladder laxity and possibly clot obstruction. Patient's Rodriguez catheter was removed this morning. The patient has not voided spontaneously since that time. Recent bladder scan suggested 135 mL present. For now, we will follow and defer management to Dr. Amos. 2. Bladder spasms-we will continue symptomatic management. 3. Right rectus and retroperitoneal hematoma-patient's hemoglobin and hematocrit have improved considerably from yesterday suggesting stabilization of this bleed. He continues to have considerable pain. We will continue symptomatic management. There is no evidence of neurological deficits to the lower extremities suggestive of compartment syndrome. 4. Symptomatic anemia-patient's hemoglobin hematocrit have improved considerably. We will continue to follow. 5. Anticoagulation-the patient's INR has decreased to 2.72 today. I have discussed case with Dr. Proctor. We will hold Coumadin tonight and plan to resume Coumadin tomorrow evening should INR continue to improve. We will follow this. 6. Leukocytosis-patient has achieved improvement. This likely was secondary to demargination. We will remain aware. 7. Acute renal failure-patient's creatinine has improved from 2.1 to 1.8. We will continue to follow. 8. Hyponatremia-I have encouraged the patient very slow improvement. Sodium level today is 123. 9. Hypertension-patient's blood pressure is controlled on his current regimen. 10. Reflux disease with associated dysphasia-we will continue a proton pump inhibitor. 11. Constipation-patient is being treated with Delores-Colace and Metamucil therapy. He did achieve improvement with a soapsuds enema. For now, we will follow. 12. 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 We will need to follow this closely. 13. Disposition-at this point, patient continues to require fpc care in the hospital setting. We will plan discharge home versus rehab once appropriate. cc: Geovani Diaz MD
[2016-09-12] MEDS: VITAMIN C PO SCH (20:25)
[2016-09-12] MEDS: LIPITOR PO SCH (20:25)
[2016-09-12] MEDS ORDERED: COUMADIN PO SCH (21:00)
--- NOTE | 2016-09-12 21:02 | PROGRESS NOTE ---
DATE: 09/12/2016 SUBJECTIVE: Mr. Nolasco reports a decent night overnight. He denies significant pain over the bladder. OBJECTIVE: Vital Signs: Temperature 97.4 degrees, pulse 60, blood pressure 131/63. General: No acute distress. HEENT: Normocephalic, atraumatic. Abdomen: Nontender, nondistended. PERTINENT LABORATORY DATA: White cell count of 12,000, hematocrit of 29. Creatinine of 1.8. INR of 2.72. ASSESSMENT AND PLAN: A 76-year-old male with hemorrhagic cystitis who is currently stable from a standpoint. We discussed removing Rodriguez catheter. PLAN: 1. Remove Rodriguez catheter. 2. We will recheck his postvoid residual throughout hospitalization, although given the fact that he has retained over 1.5 L in the past, a somewhat elevated postvoid residual of 300-400 is likely acceptable for him. cc: MD Geovani Reyna MD
[2016-09-12] MEDS: RESTORIL PO PRN (23:30)
[2016-09-13] MEDS: PERCOCET-5 PO PRN ×4 (03:02→20:32)
[2016-09-13] MEDS: PRILOSEC PO SCH (06:04)
[2016-09-13 06:20] LABS: HEMATOCRIT 30.8 % (42.0-52.0); HEMOGLOBIN 10.4 g/dL (14.0-18.0); MCH 27.9 PG (27-31); MCHC 33.8 g/dL (33-37); MCV 82.6 FL (81-99); MPV 8.5 FL (7.4-10.4); RBC 3.73 XMIL (4.7-6.1)
[2016-09-13 06:37] LABS: INR 2.19; PROTIME 24.2 Seconds (9.2-11.7)
--- NOTE | 2016-09-13 06:55 | PROGRESS NOTE ---
DATE: 09/13/2016 SUBJECTIVE: He states he is a little better today. Still has abdominal pain but improving progressively. OBJECTIVE: Vital Signs: Blood pressure 100/55, heart rate 67, respirations 16, afebrile. Intake 1.6 L. Output 1.2 L. General: No acute distress. Skin: Warm and dry. Conjunctivae are pink. Neck: Neck veins are not visible. Trachea is midline. Heart: Regular with metallic heart tones and a soft murmur. Lungs: Have equal breath sounds. No crackles or wheezes. Abdomen: Soft, nontender. Bowel sounds are present. Suprapubic mass is about the same. Extremities: Have 2+ edema. No clubbing or cyanosis. LABORATORY DATA: Pending. IMPRESSION: 1. Acute kidney injury. Good urine output. Follow labs today. 2. Hyponatremia. Slow but progressive improvement. Observe without changes. 3. Volume overload. Multifactorial. Continue current care. cc: MD Geovani Delgado MD
[2016-09-13] MEDS: PERIDEX MT SCH ×2 (08:13→20:31)
[2016-09-13] MEDS: PERICOLACE PO SCH ×2 (08:13→20:32)
[2016-09-13] MEDS: FLOMAX PO SCH ×2 (08:13→20:34)
[2016-09-13] MEDS: LEXAPRO PO SCH (08:13)
[2016-09-13] MEDS: ISOPTIN SR PO SCH ×2 (08:13→20:32)
[2016-09-13] MEDS: ZYRTEC PO SCH (08:13)
[2016-09-13] MEDS: METAMUCIL POWDER PACKET PO SCH ×2 (08:13→21:32)
[2016-09-13 08:26] LABS: ALBUMIN 2.9 g/dL (3.5-5.0); CALCIUM 8.8 mg/dL (8.8-10.2); POTASSIUM 4.1 mmol/L (3.5-5.1)
[2016-09-13] MEDS: LOPID PO SCH ×2 (09:20→20:32)
[2016-09-13] MEDS: FOLTX PO SCH (09:20)
[2016-09-13] MEDS ORDERED: NACL 3% 150 ML IV ONE (11:00)
[2016-09-13] MEDS ORDERED: CALMOSEPTINE OINTMENT TOP PRN (15:42)
[2016-09-13] MEDS: LIPITOR PO SCH (20:32)
[2016-09-13] MEDS: VITAMIN C PO SCH (20:32)
[2016-09-13] MEDS ORDERED: COUMADIN PO SCH (21:00)
[2016-09-13] MEDS: RESTORIL PO PRN (23:26)
--- NOTE | 2016-09-14 03:47 | PROGRESS NOTE ---
DATE: 09/13/2016 SUBJECTIVE: Patient was originally seen this morning. Overall, he complained of continued fatigue/weakness as well as decreased appetite. Overnight, he experienced incontinent urine, but no evidence of significant retention. Throughout the day today, the patient did reasonably well. Physical therapy was initiated this morning. He worked well demonstrating some signs of improvement. His p.o. intake remains marginal, but improved from this morning. He denies fevers, chills, nausea, vomiting, shortness of breath, or chest discomfort. OBJECTIVE: Vital Signs: T-max 98.4 degrees, heart rate 57-66, respirations 12-16 blood pressure. 112-130 over 58-59. General: Well nourished, well developed, in no acute distress. Cardiovascular: Regular rate and rhythm. No significant murmurs, rubs, or gallops. The mechanical click is noted. Pulmonary: Clear to auscultation bilaterally. Abdomen: Soft, nontender, nondistended. Positive bowel sounds. Extremities: Moves all extremities well. No significant clubbing or cyanosis. Patient has 1+ lower extremity edema bilaterally. Dermatologic: Reveals multiple ecchymoses. LABORATORY DATA: White blood cell count 13.21, hemoglobin 10.4, hematocrit 30.8, platelet count 174,000. Sodium 122, potassium 4.1, chloride 89, bicarb 17, BUN 26, creatinine 1.2, glucose 125, calcium 8.8, phosphorus 4.0, albumin 2.9. ASSESSMENT AND PLAN: 1. Urinary retention - Patient's Rodriguez catheter was removed yesterday. Patient continues to void spontaneously, although incontinent. His postvoid residual has been reasonable. For now, we will follow this. 2. Bladder spasms - We will continue symptomatic management. 3. Right rectus and retroperitoneal hematoma - Patient's hemoglobin and hematocrit are stable. His pain is reasonably controlled. There is no evidence of compartment syndrome with neurological deficits to the lower extremities. We will remain aware. 4. Symptomatic anemia. The patient's hemoglobin and hematocrit have stabilized. We will follow closely. 5. Anticoagulation - The patient's INR has decreased from 2.72 to 0.19. We will resume Coumadin this evening. 6. Leukocytosis - Patient's white blood cell count is slightly elevated. I suspect this may be secondary to demargination. We will continue to follow for any evidence of infection. 7. Acute renal failure - The patient's creatinine continues to improve. We will follow this. 8. Hyponatremia - Patient's sodium remains significantly low. 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 We will continue to follow with Dr. Obrien. 9. Hypertension - The patient's blood pressure is controlled on his current regimen. 10. Reflux with associated dysphasia - We will continue a proton pump inhibitor. 11. Constipation - Patient has achieved improvement with aggressive intervention. We will continue to follow. 12. Mechanical valve - Patient is anticoagulated as noted above. He has no evidence of failure. 13. Disposition - At this point, patient continues to require alf care in the hospital setting. We will plan discharge home once appropriate. cc: Geovani Diaz MD
[2016-09-14 05:12] LABS: HEMATOCRIT 31.4 % (42.0-52.0); HEMOGLOBIN 10.7 g/dL (14.0-18.0); MCH 27.6 PG (27-31); MCHC 34.1 g/dL (33-37); MCV 80.9 FL (81-99); MPV 8.3 FL (7.4-10.4); RBC 3.88 XMIL (4.7-6.1)
[2016-09-14 05:58] LABS: INR 2.66; PROTIME 29.7 Seconds (9.2-11.7)
[2016-09-14] MEDS: PRILOSEC PO SCH (06:06)
[2016-09-14 06:14] LABS: AGAP 12; ALBUMIN 3.1 g/dL (3.5-5.0); BUN 26 mg/dL (8-22); CHLORIDE 89 mmol/L (98-107); COSMO 252; POTASSIUM 4.9 mmol/L (3.5-5.1); SODIUM 122 mmol/L (136-145); TCO2 21 mmol/L (25-35)
[2016-09-14] MEDS ORDERED: NACL 3% 150 ML IV ONE (06:41)
[2016-09-14] MEDS: ISOPTIN SR PO SCH ×3 (09:00→20:20)
[2016-09-14] MEDS: PERCOCET-5 PO PRN ×3 (09:06→20:41)
[2016-09-14] MEDS: FLOMAX PO SCH ×2 (09:07→20:20)
[2016-09-14] MEDS: PERIDEX MT SCH ×2 (09:07→20:20)
[2016-09-14] MEDS: LEXAPRO PO SCH (09:07)
[2016-09-14] MEDS: PERICOLACE PO SCH ×2 (09:07→20:19)
[2016-09-14] MEDS: ZYRTEC PO SCH (09:08)
[2016-09-14] MEDS: LOPID PO SCH ×2 (09:08→20:20)
[2016-09-14] MEDS: FOLTX PO SCH (09:08)
[2016-09-14] MEDS: METAMUCIL POWDER PACKET PO SCH ×2 (09:08→20:19)
--- NOTE | 2016-09-14 11:49 | PROGRESS NOTE ---
DATE: 09/14/2016 TIME SEEN: 0650. SUBJECTIVE: Mr. Nolasco is resting quietly in bed. He states that he is feeling just a little bit better. He does deny chest pain or increased work of breathing. He does have some midabdominal tenderness. OBJECTIVE: Vital signs: Last temperature 97.8, blood pressure 115/58, heart rate 61, respirations 12. He is on room air. Last recorded saturation 96%. He has had 2860 in. He has had 1400 out per Rodriguez catheter. LABS: Sodium 122, potassium 4.9, chloride 89, CO2 is 21, BUN 26, creatinine 0.9 , glucose 120. His anion gap is 21. Calcium 9, phosphorus 3.7, albumin 2.6. White count 13.14 , hemoglobin 10.7, hematocrit 31.4, with a platelet count of 188. PHYSICAL EXAMINATION: General: This is a 76-year-old white male who is currently resting in bed. Head of the bed is elevated. He appears chronically ill. He is in no acute distress. His skin is warm and dry. HEENT: Normocephalic, atraumatic. Conjunctiva pink. He has JULISA. Mucous membranes are dry. Neck: Supple, trachea midline, no JVD. Cardiovascular: He has regular rate and rhythm with a metallic heart tone, soft murmur, no gallop. Lungs: Clear to auscultation anterior, equal excursion. He is on room air. Abdomen: Soft. Midepigastric tenderness to the left greater than the right. Suprapubic mass remains unchanged. Genitourinary : Rodriguez catheter is in place with CBI. Adequate urine out noted. Extremities: 2+ edema. No clubbing or cyanosis. Neurological: He is alert and oriented and cooperative, able to assist with exam. ASSESSMENT AND PLAN: 1. Acute kidney injury. The patient's creatinine has returned to his baseline. BUN is stable. Continues adequate urine out. No indications for intervention. 2. Electrolytes. Hyponatremia. Sodium is up to 122 this a.m. We will give him another 150 mL 3% normal saline fluid bolus over 1 hour. We will continue to check electrolytes q. 4-6 h. as indicated with continued improvement noted. 3. Fluid volume overload. The patient continues with lower extremity edema. He is not in any acute distress. He is currently on room air. He is not in excessive fluid volume overload at this time. No indications for intervention in regards to this. I just felt that a diuretic will not affect his swelling. We will continue to keep an eye and monitor. I would like to thank you for allowing us to follow with this patient. Dictated by RAYRAY De Oliveira for Kory Obrien MD Seen, data reviewed, discussed with Padilla Payne on 09/14/16. I agree with the above assessment and plan of care. cc: RAYRAY De Oliveira MD [facility], MD [facility]
--- NOTE | 2016-09-14 14:10 | PROGRESS NOTE ---
DATE: 09/14/2016 SUBJECTIVE: Mr. Nolasco reports that he is doing well today. Has no new complaints. OBJECTIVE: Vital Signs: Temperature 97.8 degrees, heart rate 61, respirations 12, blood pressure 115/58, O2 saturation 96% on room air. LABS: Hemoglobin 10.7, hematocrit 31.4, INR 2.66, PT 29.7, sodium 122, creatinine 0.9. ASSESSMENT AND PLAN: 1. Need for lifelong anticoagulation. Patient has a mechanical valve in place. He has also developed a rectus hematoma. We are trying to balance his bleeding with his need for anticoagulation. Goal was to keep his INR around 2. INR today is up to 2.66. Will plan to hold his Coumadin tonight and reinitiate Coumadin on 09/15/2016 at a 2 mg dose. Monitor closely for bleeding. Hemoglobin has been stable for the last couple days. 2. Rectus hematoma. Appears to be well controlled at this time. Please see above in regards to his Coumadin therapy. 3. Urinary incontinence and status post transurethral resection of prostate with complications of bleeding. Continue management as per urology. 4. Acute renal failure. Improving. Has been evaluated by Nephrology. 5. Hyponatremia. Again Nephrology is helping to correct the patient's sodium. Overall stable currently. 6. Will be monitoring peripherally throughout the weekend. Please call if needed. Dictated by RAIMUNDO Chaudhry for Chana Proctor MD cc: MD Geovani Wayne MD I have seen and examined the patient and agree with the above A/P Chana ROBLERO
[2016-09-14] MEDS: MORPHINE IV PRN ×2 (16:44→21:52)
--- NOTE | 2016-09-14 17:53 | PROGRESS NOTE ---
DATE: 09/14/2016 SUBJECTIVE: Mr. Nolasco remains in ICU secondary to hyponatremia. From a urinary standpoint, he has been able to void and per status and family who is present at bedside, he has not had significant hematuria or clots. He has had episodes of urinary incontinence. OBJECTIVE: Vital Signs: T 97.8, P 61, BP 115/58. General: No acute distress. Abdomen: Nontender, nondistended. PERTINENT LABS: His sodium is 122, creatinine 0.9. Hematocrit is 31. His INR is 2.66. ASSESSMENT: This is a 76-year-old male who is slowly progressing. From a urologic standpoint, he does not have a Rodriguez catheter. He is able to void spontaneously. Nursing staff has checked his postvoid residual several times and it has ranged in the 140-160 range which is very acceptable given his history. His incontinence is likely currently related to relative immobility and overall stress of hospitalization. He has had episodes in the past after TURP were he was able to void spontaneously and had complete control. Hence, I do not believed urinary incontinence is related to the transurethral resection of the prostate. I have discussed with the patient that he as slowly improves and gets more mobile, he will likely do better in terms of urinary control. I definitely feel strongly against placing Rodriguez catheter at this point given the progress we have made. PLAN: 1. Void spontaneously. 2. I will follow while he is in the hospital. 3. He is stable from a urologic standpoint at this time. cc: MD Geovani Reyna MD
--- NOTE | 2016-09-14 19:08 | PROGRESS NOTE ---
DATE: 09/14/2016 SUBJECTIVE: The patient was originally seen this morning. Upon my arrival, patient had been provided Percocet secondary to pain. He was somewhat somnolent. Upon discussing with patient's , his evening/night went reasonably well. His p.o. intake remains marginal. His energy level remains very low. The patient has been treated with 3% sodium secondary to hyponatremia per Dr. Obrien's recommendations. Throughout the day today, patient did reasonably well. His p.o. intake is very slowly improving. He has worked with physical therapy. He denies fevers, chills, nausea, vomiting, shortness of breath, or chest discomfort. OBJECTIVE: Vital signs: T-max 98.4, heart rate 62-66 respirations 10-14, blood pressure 103 to 116 over 54 to 65. General: Well nourished, well developed, no acute distress. Cardiovascular: Regular rate and rhythm. No significant murmurs, rubs, or gallops. A mechanical click is noted. Pulmonary: Clear to auscultation anteriorly. Abdomen: Soft, mildly tender throughout. No guarding or rebound. Positive bowel sounds. Extremities: Moves all extremities well. No significant clubbing or cyanosis. Patient has 1+ lower extremity edema bilaterally. Dermatologic: Evaluation reveals multiple ecchymoses. LABORATORY DATA: White blood cell count 13.14, hemoglobin 10.7, hematocrit 31.4, platelet count 188,000. PT at 29.7, INR is 2.66. Sodium 122, potassium 4.9, chloride 89, bicarb 21, BUN 26, creatinine 0.9, glucose 120, calcium 9.0, phosphorus 3.7, albumin 3.1. ASSESSMENT AND PLAN: 1. Urinary retention-upon admission, patient was noted to have considerable urinary retention secondary to clot obstruction and likely a component of primary bladder laxity. With transitioning to Coumadin therapy from Lovenox/heparin, patient's hematuria has improved. His urinary retention has also improved. He does complain of urinary incontinence at this point. For now, we will defer management to Dr. Amos. We will follow this closely. 2. Right rectus and retroperitoneal hematomas-this likely was secondary to hyper response to Lovenox/heparin. With transitioning to Coumadin secondary to his mechanical valve, patient's hemoglobin and hematocrit have stabilized. We will continue pain medications for pain associated with his hematomas. He has no evidence of compartment syndrome or neurological deficits to the lower extremities. 3. Symptomatic anemia-patient has required multiple transfusions. His hemoglobin and hematocrit recently have been stable. For now, we will continue to follow. 4. Anticoagulation-patient is currently being treated with Coumadin therapy. His INR is therapeutic at 2.66. As above, patient has had difficulty tolerating both heparin and Lovenox secondary to excessive bleeding. Appreciate Dr. Proctor's consultation. We will continue current dose of Coumadin. 5. Leukocytosis-patient's white blood cell count remains modestly elevated. I suspect this is secondary to demargination. He has no evidence of current infection. We will remain aware. 6. Acute renal failure-patient has achieved resolution with hydration/blood transfusions. 7. Hyponatremia-this remains quite curious. I suspect this is secondary to a combination of syndrome of inappropriate antidiuretic hormone secretion in the setting of extreme pain secondary to his retroperitoneal bleeding/hematoma and acute renal failure. Interestingly, patient's sodium decreased slightly yesterday. The patient was treated with 3% saline. We will plan to recheck a sodium level in the morning. I appreciate Dr. Obrien's consultation. 8. Hypertension-patient's blood pressure is controlled on his current regimen. 9. Reflux disease with associated dysphasia-we will continue a proton pump inhibitor. Once able, we will consider an EGD. 10. Constipation-the patient has achieved improvement with aggressive intervention. 11. Mechanical mitral valve-patient is anticoagulated with Coumadin. We will remain aware. 12. Disposition-patient continues to require nursing home care in the hospital setting. Once patient's sodium has stabilized, we will plan transfer to [address] [place] [address]. Patient may require rehabilitation at time of discharge. cc: Geovani Diaz MD
[2016-09-14] MEDS: VITAMIN C PO SCH (20:19)
[2016-09-14] MEDS: LIPITOR PO SCH (20:22)
[2016-09-14] MEDS: RESTORIL PO PRN (22:59)
[2016-09-15] MEDS: PERCOCET-5 PO PRN ×2 (00:05→10:30)
[2016-09-15] MEDS: MORPHINE IV PRN (02:42)
[2016-09-15] MEDS: PRILOSEC PO SCH (06:15)
[2016-09-15 06:29] LABS: HEMATOCRIT 30.5 % (42.0-52.0); HEMOGLOBIN 10.1 g/dL (14.0-18.0); MCH 26.9 PG (27-31); MCHC 33.1 g/dL (33-37); MCV 81.3 FL (81-99); MPV 8.3 FL (7.4-10.4); RBC 3.75 XMIL (4.7-6.1)
[2016-09-15 06:37] LABS: INR 2.98; PROTIME 33.5 Seconds (9.2-11.7)
[2016-09-15 07:13] LABS: AGAP 12; BUN 23 mg/dL (8-22); CALCIUM 8.7 mg/dL (8.8-10.2); CHLORIDE 89 mmol/L (98-107); COSMO 247; POTASSIUM 4.4 mmol/L (3.5-5.1); SODIUM 120 mmol/L (136-145); TCO2 19 mmol/L (25-35)
[2016-09-15] MEDS ORDERED: NACL 3% 150 ML IV ONE (07:56)
--- NOTE | 2016-09-15 08:12 | PROGRESS NOTE ---
DATE: 09/15/2016 SUBJECTIVE: Mr. Nolasco reports being comfortable overnight. He has voided several times throughout the night. He reports his control is slowly getting better. He currently denies significant pain. OBJECTIVE: T 98 degrees, P 64, BP 107/62. General: No acute distress. Abdomen: Nontender, nondistended. PERTINENT LABORATORY DATA: His hematocrit is 30. Sodium is 120. Creatinine 0.8. PLAN: No further urologic intervention needed at this point. I expect for him to regain control of his continence as he gets stronger. Will follow. cc: MD Geovani Reyna MD
[2016-09-15] MEDS: PERICOLACE PO SCH ×2 (08:26→20:29)
[2016-09-15] MEDS: FLOMAX PO SCH ×2 (08:26→20:29)
[2016-09-15] MEDS: ISOPTIN SR PO SCH ×2 (08:26→20:30)
[2016-09-15] MEDS: LEXAPRO PO SCH (08:26)
[2016-09-15] MEDS: PERIDEX MT SCH ×2 (08:26→20:30)
[2016-09-15] MEDS: FOLTX PO SCH (08:26)
[2016-09-15] MEDS: LOPID PO SCH ×2 (08:26→20:30)
[2016-09-15] MEDS: ZYRTEC PO SCH (08:31)
[2016-09-15] MEDS ORDERED: LASIX IV ONE (09:33)
[2016-09-15] MEDS: METAMUCIL POWDER PACKET PO SCH ×2 (10:06→21:43)
--- NOTE | 2016-09-15 13:04 | PROGRESS NOTE ---
DATE: 09/15/2016 SUBJECTIVE: Mr. Nolasco is sitting up in bed. He states that he had a good night. He denies chest pain or increased work of breathing. His Rodriguez catheter has been removed. He states he is voiding well. OBJECTIVE: His most recent vital signs. Temperature 98 degrees, blood pressure 107/62, heart rate 64, respirations 14. He is on room air. Last recorded saturation 96%. He has had 2090 in. He has had 1500 out per void. His p.o. intake is 1940 in the last 24 hours. LABS: Sodium 120, potassium 4.4, chloride is 89, CO2 19, BUN 23, creatinine 0.8, glucose 110, anion gap 12, calcium 8.7, phosphorus 3.7, albumin 3. White count 12.7, hemoglobin 10, hematocrit 30.5 with a platelet count of 210,000. His pro time is 33.5 with an INR of 2.98. PHYSICAL EXAMINATION: General: This is a 76-year-old white male resting in bed. He appears chronically ill though no acute distress. Skin: Warm and dry. HEENT: Normocephalic, atraumatic. Conjunctiva is pink. He has JULISA. Mucous membranes moist. Neck: Supple. Trachea midline. No JVD. Cardiovascular: Regular rate and rhythm. Metallic heart tone is noted. Soft murmur, no gallop. Lungs: Clear to auscultation anteriorly. Equal excursion. Abdomen: Round, soft, nontender. Positive bowel sounds. Genitourinary: Patient is voiding. Not inspected. Mass palpable. No tenderness. Free pubic abdominal area. Extremities: He continues with 2+ pitting edema with chronic venous stasis. No clubbing or cyanosis. Neurological: Alert and oriented x3. ASSESSMENT AND PLAN: 1. Acute kidney injury. Patient remains at his baseline. Adequate urine out. 2. Electrolytes. Hyponatremia. Patient's sodium has dropped to 120 from 122 yesterday after receiving 3% normal saline 150 mL bolus. We will go ahead and proceed with another 150 mL 3% normal saline fluid bolus over 1 hour. We will check electrolytes in 4 hours and again in 8 hours secondary to monitoring rise in his levels. Patient has had at least 2 L p.o. intake. He has not had any IV fluids infusing. We will currently restrict his p.o. intake at this time and again monitor labs frequently. 3. Fluid volume overload. This has improved. Patient does continue with lower extremity swelling. This appears to be chronic in nature. I would like to thank you for allowing us to follow with this patient. Dictated by RAYRAY De Oliveira for Kory Obrien MD cc: RAYRAY De Oliveira MD Scott A. Matthews, MD
[2016-09-15] MEDS: VITAMIN C PO SCH (20:29)
[2016-09-15] MEDS: LIPITOR PO SCH (20:29)
[2016-09-15] MEDS ORDERED: COUMADIN PO SCH (21:00)
[2016-09-15] MEDS: RESTORIL PO PRN (22:27)
[2016-09-16] MEDS: PRILOSEC PO SCH ×2 (05:42→06:01)
[2016-09-16 06:12] LABS: HEMOGLOBIN 10.3 g/dL (14.0-18.0); MCH 27.2 PG (27-31); MCHC 33.2 g/dL (33-37); MPV 8.7 FL (7.4-10.4); RBC 3.78 XMIL (4.7-6.1)
[2016-09-16 06:25] LABS: INR 2.06; PROTIME 22.6 Seconds (9.2-11.7)
[2016-09-16 06:27] LABS: AGAP 12; ALBUMIN 2.8 g/dL (3.5-5.0); BUN 19 mg/dL (8-22); CALCIUM 8.8 mg/dL (8.8-10.2); CHLORIDE 92 mmol/L (98-107); COSMO 252; POTASSIUM 4.2 mmol/L (3.5-5.1); SODIUM 124 mmol/L (136-145); TCO2 20 mmol/L (25-35)
[2016-09-16] MEDS: LEXAPRO PO SCH (08:37)
[2016-09-16] MEDS: PERIDEX MT SCH (08:37)
[2016-09-16] MEDS: FLOMAX PO SCH ×2 (08:37→20:51)
[2016-09-16] MEDS: ZYRTEC PO SCH (08:37)
[2016-09-16] MEDS: PERICOLACE PO SCH ×2 (08:40→20:51)
[2016-09-16] MEDS: FOLTX PO SCH (08:40)
[2016-09-16] MEDS: ISOPTIN SR PO SCH ×2 (08:40→20:52)
[2016-09-16] MEDS: METAMUCIL POWDER PACKET PO SCH (08:40)
[2016-09-16] MEDS: LOPID PO SCH ×2 (08:40→20:51)
[2016-09-16] MEDS: LASIX IV SCH (12:43)
[2016-09-16] MEDS: VITAMIN C PO SCH (20:52)
[2016-09-16] MEDS: LIPITOR PO SCH (20:52)
[2016-09-16] MEDS ORDERED: COUMADIN PO SCH ×2 (21:00)
[2016-09-16] MEDS: RESTORIL PO PRN (22:38)
[2016-09-17 05:10] LABS: INR 1.62; PROTIME 17.5 Seconds (9.2-11.7)
[2016-09-17] MEDS: PRILOSEC PO SCH (06:04)
[2016-09-17 08:22] LABS: BASO% 0.3 % (0.0-0.8); EOS# 0.11 X1000 (0.0-0.7); EOS% 1.1 % (0.0-10.0); HEMATOCRIT 29.5 % (42.0-52.0); HEMOGLOBIN 9.6 g/dL (14.0-18.0); IMM GRAN# 0.38 X1000 (0.0-0.04); IMM GRAN% 3.9 % (0.0-0.5); LYMPH# 1.03 X1000 (1.2-3.4); LYMPH% 10.5 % (20.5-51.1); MANUAL DIFF NEEDED? NO; MCHC 32.5 g/dL (33-37); MCV 82.9 FL (81-99); MONO# 1.49 X1000 (0.11-0.59); MONO% 15.2 % (1.7-9.3); PLT 259 X1000 (130-400); RBC 3.56 XMIL (4.7-6.1)
[2016-09-17 08:35] LABS: AGAP 11; BUN 21 mg/dL (8-22); CALCIUM 8.7 mg/dL (8.8-10.2); CHLORIDE 95 mmol/L (98-107); COSMO 262; POTASSIUM 3.9 mmol/L (3.5-5.1); SODIUM 129 mmol/L (136-145); TCO2 23 mmol/L (25-35)
[2016-09-17] MEDS: FOLTX PO SCH (09:13)
[2016-09-17] MEDS: FLOMAX PO SCH ×2 (09:13→21:08)
[2016-09-17] MEDS: PERICOLACE PO SCH ×2 (09:13→21:08)
[2016-09-17] MEDS: ISOPTIN SR PO SCH ×2 (09:13→21:08)
[2016-09-17] MEDS: LASIX IV SCH (09:13)
[2016-09-17] MEDS: LEXAPRO PO SCH (09:13)
[2016-09-17] MEDS: ZYRTEC PO SCH (09:13)
[2016-09-17] MEDS: METAMUCIL POWDER PACKET PO SCH ×2 (09:14→21:10)
[2016-09-17] MEDS: LOPID PO SCH ×2 (09:15→21:08)
[2016-09-17 10:15] LABS: INR 1.59; PROTIME 17.2 Seconds (9.2-11.7)
--- NOTE | 2016-09-17 10:27 | PROGRESS NOTE ---
DATE: 09/17/2016 TIME SEEN: 07 SUBJECTIVE: Mr. Nolasco is resting quietly in bed. He has been sleeping. His has just arrived at the hospital. He is in no pain. He does remain lethargic. It appears he has had a Restoril last night to allow him to sleep and a Percocet yesterday morning for discomfort. OBJECTIVE: Vital Signs: His most recent vital signs, temperature 97.8 degrees, blood pressure 131/54, heart rate 72, respirations 20. He is on room air. Last recorded saturation 99%. He has had 800 in. He has had 1000 out per void. Laboratory Data: Sodium remains at 129, potassium 3.9, chloride is 95, CO2 23, BUN 21, creatinine 0.8, glucose 106. His anion gap is 11, calcium 8.7, phosphorus 2.9, albumin of 3. His white count is 9.81, hemoglobin 9.6, hematocrit 29.5, with a platelet count of 259,000. Physical Examination: General: This is a 76-year-old, white male. He is currently resting in bed. He appears chronically ill with no acute distress. His skin is warm and dry. HEENT: Normocephalic, atraumatic. Conjunctivae are pale. He has JULISA. Mucous membranes are moist. Neck: Supple. Trachea midline. No JVD. Cardiovascular: Regular rate and rhythm. He has a metallic heart tone noted. No murmur or gallop today. Lungs: Clear to auscultation anteriorly. Equal excursion, on room air. Abdomen: Soft, nontender. Positive bowel sounds. Genitourinary: Patient is voiding. This has not been inspected. He does not have any palpable masses noted. No tenderness upon exam. Extremities: He continues with 2+ pitting edema, slight chronic venous stasis on bilateral lower extremities. No clubbing or cyanosis. Neurological: Alert and oriented to person and to place. ASSESSMENT AND PLAN: 1. Acute kidney injury. This has resolved. 2. Electrolytes. Patient continues with hyponatremia. This is been improving over the last 3 days. Sodium has stabilized at 129. He remains on a 1.5 L fluid restriction. He has received Lasix yesterday by Dr. St. No indications for intervention today. states that his lower extremities do not look any different than they have in the last couple days. 3. Fluid volume overload. Again, patient has lower extremity edema. No indications for intervention at this time. He is not in any respiratory distress. He is on room air. 4. Anemia. This remains stable. 5. Urinary involvement with parapubic catheter. Continues to be followed by Dr. Amos. He continues to void. He remains weak. I would like to thank you for allowing us to follow with this patient. Dictated by RAYRAY De Oliveira for Kory Obrien MD cc: RAYRAY De Oliveira MD Scott A. Matthews, MD
[2016-09-17] MEDS: NORCO-5 PO PRN (11:45)
--- NOTE | 2016-09-17 13:01 | PROGRESS NOTE ---
DATE: 09/17/2016 SUBJECTIVE: Mr. Nolasco had some pain earlier and has taken a [place]. He is drowsy. His is at bedside and does report that the patient has been up and walking today. He is also voiding without issue. They deny any hematuria at this time. VITAL SIGNS: Temperature is 97.6 degrees, heart rate 64, respirations 14, blood pressure 115/57, O2 saturation 98% on room air. LABORATORY DATA: White blood cells 9.81, hemoglobin 9.6, hematocrit 29.5, platelets 259,000. INR 1.59. Sodium 129, creatinine 0.8. PHYSICAL EXAMINATION: Cardiovascular: Regular rate and rhythm. S1-S2 heard. Mechanical click appreciated. Respiratory: Chest is clear to auscultation bilaterally. Normal respiratory effort. Gastrointestinal: Abdomen is soft and nontender. Positive bowel sounds. Extremities: Patient has 2+ pitting edema in bilateral lower extremities. It goes up past his knees. No erythema or warmth noted. ASSESSMENT AND PLAN: 1. Lifelong anticoagulation due to having mechanical valve in place. The patient has now been restarted on Coumadin. His INR is subtherapeutic at this time. Plan is still to try to have a low-level anticoagulation around 2-2.5 on the INR. It would be best at this time to let his INR slowly drift upward. He had a rather large drop after holding the Coumadin for couple days. Preference would still be to continue at a low dose of Coumadin at this time. Continue to check INR's daily. 2. Hematuria after TURP. It seems to have resolved. Urology is on the case. No further interventions are needed at this time per urologic standpoint. 3. Acute kidney injury. This has resolved. 4. Hyponatremia. This is being managed by Dr. Obrien. Sodium is now stable at 129. 5. Fluid volume overload. Patient has been receiving Lasix p.r.n. Increased activity as been encouraged. 6. Anemia. Patient has required packed red blood cells previously. Overall hemoglobin and hematocrit is stable at this time. Continue to monitor. Dictated by RAIMUNDO Chaudhry for Chana Proctor MD cc: MD Geovani Wayne MD I have seen and examined the patient and agree with the above A/P. Chana ROBLERO
--- NOTE | 2016-09-17 20:22 | PROGRESS NOTE ---
DATE: 09/17/2016 SUBJECTIVE: The events of the weekend were reviewed. In summary, the patient did reasonably well. The patient's p.o. intake is slowly improving. Patient's hematuria has essentially resolved. He continues to have pain at his hematoma site, although this is improving. His sodium level continues some liability, but overall had improved. He was transferred from the ICU to the CICU yesterday. This morning, patient was doing reasonably well. He complained of no specific symptoms, just fatigue. This evening, patient states he had a reasonably productive day. He worked with physical therapy. His appetite is improving. His energy level is low but improving. He denies fevers, chills, nausea, vomiting, shortness of breath, or chest discomfort. He is exhibiting no significant signs of urinary retention. OBJECTIVE: Vital signs: T-max 99.1 degrees, heart rate 62-74, respirations 12-19, blood pressure 115-131 over 54-65. General: Well nourished, well developed, no acute distress. Cardiovascular: Regular rate and rhythm. No significant murmurs, rubs, or gallops. Mechanical click is noted. Pulmonary: Clear to auscultation bilaterally. Abdomen: Soft, nondistended, nontender. Positive bowel sounds. Extremities: Moves all extremities well. No significant clubbing or cyanosis. Patient has 1+ lower extremity edema bilaterally. Dermatologic: Evaluation reveals multiple ecchymoses. LABORATORY DATA: White blood cell count 9.81, hemoglobin 9.6, hematocrit 29.5, platelet counts 259,000. PT 17.2, INR is 1.59. Sodium 129, potassium 3.9, chloride 95, bicarb 23, BUN 21, creatinine 0.8, glucose 106, calcium 8.7, phosphorus 2.9, albumin 3.0. ASSESSMENT AND PLAN: 1. Urinary retention-patient's urinary retention secondary to clot obstruction/primary urinary retention has improved. We will continue to follow along with Dr. Amos. 2. Right rectus and retroperitoneal hematomas-patient's overall condition is improving. He continues to require intermittent pain medications to maintain adequate control. For now, we will continue symptomatic management. He has no evidence of compartment syndrome with neurological deficits of the lower extremities. 3. Symptomatic anemia-patient's hemoglobin, hematocrit have stabilized. We will continue to follow. 4. Anticoagulation-as described on previous notes, patient has had difficulty tolerating both heparin and Lovenox. His INR is subtherapeutic today, however, I feel the risk of an additional dose of Lovenox outweighs the benefits. We will adjust patient's Coumadin to 4 mg nightly. We will follow this. 5. Leukocytosis-patient has achieved resolution. This likely was secondary to demargination. The patient does not have any evidence of current infection. 6. Acute renal failure-patient has achieved resolution. 7. Hyponatremia-patient's sodium is slowly improving. We will continue to follow. I appreciate Dr. Obrien's consultation. Hypertension-patient's blood pressure is reasonably controlled on his current regimen. 8. Reflux disease with associated dysphasia-we will continue patient on a proton pump inhibitor. Once able, we will consider EGD and possible dilation. 9. Constipation-patient has achieved improvement with aggressive intervention. 10. 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 11. Lower extremity edema-patient does have 1+ lower extremity edema bilaterally. At this point, we will hold off on further diuresis as this may exacerbate his hyponatremia. We will follow this. 12. Disposition-at this point, patient continues to require senior care care in the hospital setting. We will plan discharge home or to rehab later this week should his condition continued to improve. cc: Geovani Diaz MD
[2016-09-17] MEDS: VITAMIN C PO SCH (21:08)
[2016-09-17] MEDS: LIPITOR PO SCH (21:08)
[2016-09-17] MEDS: COUMADIN PO SCH (21:08)
[2016-09-17] MEDS: RESTORIL PO PRN (23:54)
[2016-09-18 04:58] LABS: MANUAL DIFF NEEDED? NO
[2016-09-18 05:09] LABS: INR 1.77; PROTIME 19.3 Seconds (9.2-11.7)
[2016-09-18 05:14] LABS: BASO% 0.4 % (0.0-0.8); EOS# 0.14 X1000 (0.0-0.7); EOS% 1.3 % (0.0-10.0); HEMATOCRIT 29.5 % (42.0-52.0); HEMOGLOBIN 9.7 g/dL (14.0-18.0); IMM GRAN# 0.23 X1000 (0.0-0.04); IMM GRAN% 2.1 % (0.0-0.5); LYMPH# 1.16 X1000 (1.2-3.4); LYMPH% 10.4 % (20.5-51.1); MCH 27.4 PG (27-31); MCHC 32.9 g/dL (33-37); MCV 83.3 FL (81-99); MONO% 13.5 % (1.7-9.3); MPV 8.4 FL (7.4-10.4); NEUT% 72.3 % (42.2-75.2); PLT 256 X1000 (130-400); RBC 3.54 XMIL (4.7-6.1)
[2016-09-18 05:24] LABS: AGAP 12; BUN 21 mg/dL (8-22); CALCIUM 9.1 mg/dL (8.8-10.2); CHLORIDE 94 mmol/L (98-107); COSMO 264; POTASSIUM 3.9 mmol/L (3.5-5.1); SODIUM 130 mmol/L (136-145); TCO2 24 mmol/L (25-35)
[2016-09-18] MEDS: PRILOSEC PO SCH (06:05)
[2016-09-18] MEDS ORDERED: LASIX IV ONE (08:40)
[2016-09-18] MEDS: ISOPTIN SR PO SCH ×2 (08:58→21:06)
[2016-09-18] MEDS: ZYRTEC PO SCH (08:59)
[2016-09-18] MEDS: METAMUCIL POWDER PACKET PO SCH ×2 (08:59→21:06)
[2016-09-18] MEDS: LOPID PO SCH ×2 (08:59→21:06)
[2016-09-18] MEDS: FLOMAX PO SCH ×2 (08:59→21:06)
[2016-09-18] MEDS: PERICOLACE PO SCH ×2 (08:59→21:06)
[2016-09-18] MEDS: FOLTX PO SCH (08:59)
[2016-09-18] MEDS: LEXAPRO PO SCH (08:59)
--- NOTE | 2016-09-18 13:31 | PROGRESS NOTE ---
DATE: 09/18/2016 TIME SEEN: 0800 hours. SUBJECTIVE: Mr. Nolasco is resting quietly in bed. He is reading the paper. States that he is feeling well. He just remains weak. Denies chest pain or increased work of breathing. OBJECTIVE: His most recent vital signs: Temperature 97.5 degrees, blood pressure 136/64, heart rate 73, respirations are 12. He is on room air. Last recorded saturation 98% . He has had 358 in; he has had 500 out per void. LABS: Sodium 130, potassium 3.9, chloride 94, CO2 24, BUN 21, creatinine 0.9, glucose 101. Anion gap 12. Calcium 9.1, phosphorus 2.9, albumin 3. White count 11.15, hemoglobin 9.7, hematocrit 29.5, with a platelet count of 256. His pro time is 19.3 with an INR of 1.77. PHYSICAL EXAMINATION: General: This is a 76-year-old white male. He is in no acute distress. Skin: Warm and dry. He does appear chronically ill. HEENT: Normocephalic, atraumatic. Conjunctivae pale. He has JULISA. Mucous membranes are moist. Neck: Supple. Trachea midline. No JVD. Cardiovascular: Regular rate and rhythm. He has a metallic heart tone. No murmur or gallop. Lungs: Clear to auscultation anteriorly. Equal excursion on room air. Abdomen: Soft, nontender. Positive bowel sounds noted. Genitourinary: Not inspected. Patient is voiding adequate amounts. Extremities: He continues with 2+ lower extremity edema with chronic venous stasis. No clubbing or cyanosis. Neurological: He is alert to person and to place. ASSESSMENT AND PLAN: 1. Acute kidney injury. Again, this has resolved. 2. Hyponatremia. Sodium is at 130. He has not received any Lasix or hypertonics in the last 24 hours and continues to improve. He remains on a 1.5 L fluid restriction. 3. Fluid volume overload. The patient continues with bilateral lower extremity edema. There has been no improvement seen with IV Lasix over the weekend. He has just been cautioned on his oral intake and low salt diet. 4. Anemia. This remains stable. 5. Urinary parapubic catheter. This continues to be followed by Dr. Amos. Patient is voiding adequate. Plan: Patient has improved. No indications for further intervention from Nephrology. We will sign off at this time and remain available if needed. I would like to thank you for allowing us to follow with this patient. Dictated by RAYRAY De Oliveira for Kory Obrien MD cc: RAYRAY De Oliveira MD Scott A. Matthews, MD [facility]ERN[facility]
[2016-09-18] MEDS: LIPITOR PO SCH (21:06)
[2016-09-18] MEDS: RESTORIL PO PRN (21:06)
[2016-09-18] MEDS: COUMADIN PO SCH (21:06)
[2016-09-18] MEDS: VITAMIN C PO SCH (21:06)
--- NOTE | 2016-09-18 21:06 | PROGRESS NOTE ---
DATE: 09/18/2016 SUBJECTIVE: The patient was originally seen this morning. At that time, patient complained only of lower extremity edema. Patient states he rested reasonably well overnight. His energy level remains very low. His p.o. intake is marginal. He denied fevers, chills, nausea, vomiting, shortness of breath, or chest discomfort. Upon my arrival this evening, patient's complained that the patient was somewhat more lethargic throughout the day. The patient was able to rise up with minimal assistance to the chair twice today. He worked with physical therapy. PO intake is reasonable. He continues to have considerable lower extremity edema. OBJECTIVE: Vital Signs: T-max is 98.2 degrees, heart rate 58-73, respirations 13-18, blood pressure 115-136 over 54-64. General: Well-nourished, well-developed, no acute distress. Cardiovascular: Regular rate and rhythm. No significant murmurs, rubs, or gallops. A mechanical click is noted. Pulmonary: Clear to auscultation bilaterally. Abdomen: Soft, nontender, nondistended. Positive bowel sounds. Extremities: Moves all extremities well. No significant clubbing or cyanosis. Patient has 2+ lower extremity edema bilaterally. Dermatologic: Evaluation reveals no evidence of rash. LABORATORY DATA: White blood cell count 11.15, hemoglobin 9.7, hematocrit 29.5, platelet counts 256,000. PT 19.3 and INR 1.77. Sodium 130, potassium 3.9, chloride 94, bicarb 24, BUN 21, creatinine 0.9, glucose 101, calcium 9.1, phosphorus 2.9, albumin 3.0. ASSESSMENT AND PLAN: 1. Urinary retention. The patient has achieved improvement with time and status post multiple surgical interventions and treatment for underlying clot obstruction. I appreciate Dr. Amos's assistance. At present time, patient is voiding and is largely continent of urine. 2. Right rectus and retroperitoneal hematomas. Once again, patient's overall condition is improved. He is exhibiting less pain. We will continue symptomatic management. 3. Symptomatic anemia. Patient's hemoglobin and hematocrit are stable. We will continue to follow. He has no evidence of active bleeding. 4. Leukocytosis. The patient's white blood cell count is marginally elevated. He has no evidence of infection. 5. Hyponatremia. Patient's sodium level has stabilized at approximately 130. With diuresis, we will follow this. 6. Reflux disease with associated dysphasia. At this point, he is not a good candidate for EGD, and possible dilation. We will continue proton pump inhibitor. We will remain aware. 7. Constipation. Patient has achieved adequate control with his current regimen. 8. Mechanical mitral valve. The patient's INR is slightly subtherapeutic. We will continue to follow. At this point, the risk of bridging with Lovenox outweighs the benefits. 9. Lower extremity edema. The patient was provided Lasix 40 mg IV today. We will continue to follow this. At this point, with the recent significant hyponatremia, we will need to be very aware and cautious with using diuresis. 10. Disposition. At this point, patient continues to require long term care in the hospital setting. We will plan discharge for rehabilitation once appropriate. cc: Geovani Diaz MD
[2016-09-19 05:01] LABS: MANUAL DIFF NEEDED? NO
[2016-09-19 05:05] LABS: BASO% 0.2 % (0.0-0.8); EOS# 0.19 X1000 (0.0-0.7); HEMATOCRIT 28.4 % (42.0-52.0); HEMOGLOBIN 9.2 g/dL (14.0-18.0); IMM GRAN# 0.14 X1000 (0.0-0.04); IMM GRAN% 1.5 % (0.0-0.5); LYMPH# 1.37 X1000 (1.2-3.4); LYMPH% 14.6 % (20.5-51.1); MCHC 32.4 g/dL (33-37); MCV 83.3 FL (81-99); MONO# 1.31 X1000 (0.11-0.59); MONO% 13.9 % (1.7-9.3); MPV 8.3 FL (7.4-10.4); NEUT% 67.8 % (42.2-75.2); PLT 259 X1000 (130-400); RBC 3.41 XMIL (4.7-6.1)
[2016-09-19] MEDS: PRILOSEC PO SCH (06:04)
[2016-09-19 06:06] LABS: AGAP 10; ALBUMIN 2.9 g/dL (3.5-5.0); BUN 16 mg/dL (8-22); CALCIUM 8.6 mg/dL (8.8-10.2); CHLORIDE 94 mmol/L (98-107); COSMO 260; INR 2.31; POTASSIUM 3.3 mmol/L (3.5-5.1); PROTIME 25.6 Seconds (9.2-11.7); SODIUM 129 mmol/L (136-145); TCO2 25 mmol/L (25-35)
[2016-09-19] MEDS ORDERED: KLOR-CON PO ONE (09:06)
[2016-09-19] MEDS ORDERED: LASIX IV ONE (09:07)
[2016-09-19] MEDS: FOLTX PO SCH (09:58)
[2016-09-19] MEDS: METAMUCIL POWDER PACKET PO SCH ×2 (09:58→21:22)
[2016-09-19] MEDS: LOPID PO SCH ×2 (09:59→21:21)
[2016-09-19] MEDS: ISOPTIN SR PO SCH ×2 (09:59→21:21)
[2016-09-19] MEDS: LEXAPRO PO SCH (09:59)
[2016-09-19] MEDS: PERICOLACE PO SCH ×2 (09:59→21:21)
[2016-09-19] MEDS: FLOMAX PO SCH ×2 (09:59→21:21)
[2016-09-19] MEDS: ZYRTEC PO SCH (09:59)
[2016-09-19] MEDS ORDERED: COUMADIN PO SCH (21:00)
[2016-09-19] MEDS: VITAMIN C PO SCH (21:21)
[2016-09-19] MEDS: RESTORIL PO PRN (21:21)
[2016-09-19] MEDS: LIPITOR PO SCH (21:22)
[2016-09-20 05:07] LABS: MANUAL DIFF NEEDED? NO
[2016-09-20 05:14] LABS: BASO% 0.3 % (0.0-0.8); EOS# 0.12 X1000 (0.0-0.7); EOS% 1.6 % (0.0-10.0); HEMOGLOBIN 9.3 g/dL (14.0-18.0); IMM GRAN# 0.11 X1000 (0.0-0.04); IMM GRAN% 1.5 % (0.0-0.5); LYMPH# 1.11 X1000 (1.2-3.4); LYMPH% 15.2 % (20.5-51.1); MCH 26.9 PG (27-31); MCHC 32.1 g/dL (33-37); MCV 83.8 FL (81-99); MONO# 1.16 X1000 (0.11-0.59); MONO% 15.9 % (1.7-9.3); MPV 8.3 FL (7.4-10.4); NEUT% 65.5 % (42.2-75.2); PLT 266 X1000 (130-400); RBC 3.46 XMIL (4.7-6.1)
[2016-09-20 05:23] LABS: INR 2.62; PROTIME 29.2 Seconds (9.2-11.7)
[2016-09-20 05:31] LABS: AGAP 10; ALKALINE PHOSPHATASE 76 U/L (32-122); BUN 15 mg/dL (8-22); CALCIUM 8.8 mg/dL (8.8-10.2); CHLORIDE 96 mmol/L (98-107); COSMO 269; GOT 21 U/L (10-34); GPT 9 U/L (10-44); POTASSIUM 3.5 mmol/L (3.5-5.1); SODIUM 134 mmol/L (136-145); TCO2 28 mmol/L (25-35); TOTAL BILIRUBIN 0.56 mg/dL (0.20-1.00); TOTAL PROTEIN 5.5 g/dL (6.3-8.3)
[2016-09-20] MEDS: PRILOSEC PO SCH (06:08)
--- NOTE | 2016-09-20 08:30 | PROGRESS NOTE ---
DATE: 09/20/2016 SUBJECTIVE: This morning, the patient was initially evaluated. The patient was noted to have improvement from yesterday, although continued to complain of fatigue. He slept reasonably well last night. We attempted diuresis yesterday with some improvement. He continues to have significant lower extremity edema. His p.o. intake remains marginal. He denies fevers, chills, nausea, vomiting, shortness of breath, or chest discomfort. This afternoon, patient's overall condition had shown some continued improvement. His mood was somewhat improved. OBJECTIVE: Vital Signs: T-max 98.3 degrees, heart rate 61-70, respirations 16-18, blood pressure 114 to 139/48-67. General: Well-nourished, well-developed, in no acute distress. Cardiovascular: Regular rate and rhythm. No significant murmurs, rubs, or gallops. Mechanical click is noted. Pulmonary: Clear to auscultation anteriorly. Abdomen: Soft, nontender, nondistended. Positive bowel sounds. Extremities: Moves all extremities well. No significant clubbing or cyanosis. 2+ lower extremity edema is identified. Dermatologic: Evaluation reveals multiple ecchymoses. LABORATORY DATA: White blood cell count 9.40, hemoglobin 9.2, hematocrit 28.4, platelet count 259,000. PT of 25.6. INR is 2.31. Sodium 129, potassium 3.3, chloride 94, bicarb 25. BUN 16, creatinine 0.8, glucose 90. Calcium 8.6, phosphorus 2.8, albumin 2.9. ASSESSMENT AND PLAN: 1. Urinary retention - I am very encouraged with the patient's improvement. He is voiding without significant difficulty. He has regained continence. We will remain aware. 2. Right rectus and retroperitoneal hematoma. The patient has achieved stability. His pain is controlled. We will continue to follow this. 3. Symptomatic anemia - Patient's hemoglobin and hematocrit remained stable. He has no evidence of active bleeding. He has, intermittently, over the last several days had mild hematochezia. This will be followed. 4. Leukocytosis - Patient has achieved resolution. He has no evidence of active infection. 5. Hyponatremia-patient's sodium is down slightly from yesterday. 6. This likely is secondary to diuresis. We will continue to follow. 7. Reflux disease with associated dysphagia-we will continue treatment with a proton pump inhibitor. At present time, he is not a good candidate for esophagogastroduodenoscopy and possible dilation. We will consider this as an outpatient should his symptoms persist. 8. Constipation - the patient has achieved adequate control with his current regimen. 9. Mechanical mitral valve - patient's INR is approaching therapeutic levels. We will continue his current dose of Coumadin. 10. Lower extremity edema - this is significant. We will provide a dose of Lasix IV again today. We will likely transition to his home hydrochlorothiazide at discharge. DISPOSITION: At this point, patient continues to require prison care in a hospital setting. I anticipate the patient will be prepared for discharge to rehabilitation in the morning medication for much. cc: Geovani Diaz MD
[2016-09-20] MEDS: FOLTX PO SCH (09:04)
[2016-09-20] MEDS: ZYRTEC PO SCH (09:04)
[2016-09-20] MEDS: FLOMAX PO SCH (09:04)
[2016-09-20] MEDS: PERICOLACE PO SCH (09:04)
[2016-09-20] MEDS: ISOPTIN SR PO SCH (09:04)
[2016-09-20] MEDS: LEXAPRO PO SCH (09:04)
[2016-09-20] MEDS: LOPID PO SCH (09:04)
[2016-09-20] MEDS: METAMUCIL POWDER PACKET PO SCH (09:05)
[2016-09-20 10:58] VITALS: BP 129/53
--- NOTE | 2016-09-20 12:53 | DISCHARGE SUMMARY ---
ADMISSION DATE: 08/28/2016 DISCHARGE DATE: ADMISSION DIAGNOSES: 1. Urinary retention. 2. Gross hematuria. DISCHARGE DIAGNOSES: 1. Urinary retention secondary to bladder laxity and clot obstruction, resolved. 2. Right rectus and retroperitoneal hematomas, stabilized. 3. Symptomatic anemia, status post multiple transfusions, stabilized. 4. Leukocytosis, resolved. 5. Hyponatremia, improved. 6. Reflux disease with associated dysphagia, stable. 7. Constipation, present on arrival. 8. Mechanical mitral valve requiring anticoagulation, present on arrival. 9. Lower extremity edema, significant, but improving. CONSULTATIONS: 1. Yasmani Amos MD with Urology was consulted for further evaluation and management of gross hematuria, status post capital transurethral resection of the prostate. 2. Dr. Proctor with Hematology was consulted for further evaluation and management of persistent bleeding, with probable hypersensitivity to Lovenox/heparin. 3. Kory Obrien MD with Nephrology was consulted for further evaluation and management of hyponatremia. PROCEDURES: 1. A CT scan of the abdomen and pelvis was performed on 09/05/2016, which revealed moderate to large intramuscular and subcutaneous hemorrhages. 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 Cardiomegaly. Large hiatal hernia. Bilateral renal cyst or mass is a variable and indeterminate character. Severe diverticulosis coli. 2. CT scan of the abdomen and pelvis was performed on 09/09/2016, which revealed enlarging right rectus and retroperitoneal hematoma. 3. 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 Estimated ejection fraction of 60%. Pulmonary arterial hypertension with a pulmonary artery systolic pressure of 58 mmHg. HISTORY AND PHYSICAL EXAMINATION: See admit note. PHYSICAL EXAMINATION PRIOR TO DISCHARGE: Vital Signs: Temperature 97.5 degrees , heart rate 61, respirations 16, blood pressure is 126/52. General: Well nourished, well developed, no acute distress. Cardiovascular: Regular rate and rhythm. No significant murmurs rubs or gallops. A mechanical click is noted. Pulmonary: Clear to auscultation bilaterally. Abdomen: Soft, nontender, nondistended. Positive bowel sounds. Extremities: Moves all extremities well. No significant clubbing or cyanosis. Patient has 2+ lower extremity edema bilaterally. Dermatologic Evaluation: Reveals multiple ecchymoses. LABORATORY DATA: Prior to discharge, white blood cell count 7.30 hemoglobin 9.3 , hematocrit 29.0 platelet counts 266,000. PT 29.2. INR is 2.62. Sodium 134, potassium 3.5, chloride 96, bicarb 28, BUN 15, creatinine 0.7, glucose 91, calcium 8.8, phosphorus 2.5. Total bilirubin 0.56. Total protein 5.5, albumin 3.0. Alkaline phosphatase 76, AST 21, ALT 9. HOSPITAL COURSE: The patient was admitted as per history and physical examination. Hospital course per condition is as follows: 1. Urinary retention-upon admission, the patient was noted to have significant urinary retention. Unfortunately, he had been admitted to the hospital on several occasions secondary to clot obstruction/bladder laxity. This was the result of a recent transurethral resection of the prostate. Because of patient's underlying mechanical valve, anticoagulation was needed to be continued. Throughout hospitalization, the patient was treated with intermittent Rodriguez catheter placement. Ultimately, patient was transitioned from heparin products to Coumadin as described below. With this, hematuria improved. Patient's bladder function improved. At time of discharge, he was requiring no intervention and was continent of urine. We will remain aware. 2. Right rectus and retroperitoneal hematomas-this posed a considerable problem while hospitalized. The patient developed spontaneous bleeding. He lost a considerable amount of blood requiring multiple transfusions. He also was noted to have considerable pain. Throughout hospitalization, the patient was treated with stabilization. There was no evidence of compartment syndrome. There was no evidence of lower extremity neuropathic signs. Ultimately, hemostasis was achieved by transitioning to Coumadin therapy. His pain at present time is controlled with only rare Trade. This will be continued. 3. Symptomatic anemia-the patient developed symptomatic anemia secondary to both gross hematuria and his hematoma formation. He required multiple transfusions while hospitalized. At time of discharge, hemoglobin and hematocrit have been stable for several days. This will need to be followed as an outpatient as well. 4. Leukocytosis-the patient was noted to have a considerable leukocytosis during the active bleeding aspect of his hematoma formation. It was felt this likely was secondary to demargination in the setting of his acute bleed. No evidence of infection was ever identified. With time, his white blood cell count has normalized. We will continue to follow this as an outpatient as well. 5. Hyponatremia-interestingly, associated with his retroperitoneal bleed, he developed a considerable hyponatremia with a sodium dropping as low as 110. Samsca therapy was attempted, although unsuccessfully. Dr. Kory Obrien, with Nephrology, was consulted. 3% saline was initiated. With time, the patient has developed a very slow improvement. Sodium at time of discharge was 134. The patient will need to be followed closely as an outpatient, especially in the setting of initiating diuresis secondary to lower extremity edema. Ultimately, it was felt that significant hyponatremia with secondary to syndrome of inappropriate antidiuretic hormone secretion in the setting of extreme pain associated with the retroperitoneal hematoma. 6. Reflux disease with associated dysphagia-the patient has complained of intermittent symptoms throughout hospitalization. Because of his current condition, the risk of surgical intervention within the esophagogastroduodenoscopy outweighs the benefits. We will continue a proton pump inhibitor and encourage slow eating with plenty of water. We will consider evaluation as an outpatient. 7. Constipation-patient was maintained on his home medications while hospitalized. His bowel movements have intermittently been constipated, but overall controlled. 8. Mechanical mitral valve requiring anticoagulation-unfortunately, this posed a considerable problem in the postoperative period of his transurethral resection of the prostate. Because he was unable to stay off of anticoagulation for an extended period of time, the patient experienced multiple episodes of bleeding. Ultimately, it was felt the patient likely had a hypersensitivity to Lovenox/heparin. With attempting both Lovenox and a heparin drip, he developed spontaneous bleeding. Although, without risk, we chose to transition patient over to Coumadin despite bleeding. With this, the patient achieved hemostasis. We will continue Coumadin at his current home dosage. Goal INR is between 2.5 and 3.5. We will follow this closely as well as an outpatient. 9. Lower extremity edema-in the latter aspect of hospitalization, patient developed significant lower extremity edema, likely secondary to a combination of 3% saline, hypoproteinemic state, and stasis. The patient was treated with Lasix on 2 occasions while hospitalized. We will discharge the patient with the addition of hydrochlorothiazide. This will need to be followed as an outpatient as well. I would suggest resuming lower extremity NORBERTO hose as soon as able. 10. Incidental findings per CT scan including possible bladder mass and bilateral renal cysts/masses-I have discussed this with Dr. Yasmani Amos. The bladder mass likely represented a hematoma. The renal cysts were of lesser concern. We will defer outpatient management to Dr. Yasmani Amos. DISCHARGE CONDITION: Stable. DISPOSITION: Discharged to rehabilitation. MEDICATIONS: 1. Acetaminophen 650 mg every 4 hours as needed. 2. Vitamin C 500 mg at bedtime. 3. Atorvastatin 20 mg at bedtime. 4. Zyrtec 10 mg daily. 5. Clindamycin 1% gel as needed. 6. Lexapro 5 mg daily. 7. Gemfibrozil 600 mg twice a day. 8. Trade 5/325, one tablet every 6 hours as needed. 9. Nitroglycerin 0.4 mg sublingual as needed. 10. Prilosec 40 mg daily. 11. Metamucil 5 teaspoons (as per home regimen) twice daily. 12. Flomax 0.4 mg twice daily. 13. Delores-Colace twice daily, hold for loose stools. 14. Temazepam 30 mg at bedtime as needed. 15. Verapamil 180 mg twice daily. 16. B-complex vitamin daily. 17. Hydrochlorothiazide 25 mg daily. 18. Metronidazole cream twice daily. 19. Potassium chloride 10 mEq daily. 20. Coumadin 4 mg at bedtime, except 2 mg on Saturday night. FOLLOWUP: 1. The patient will require a CBC, CMP, and PT/INR within 3-4 days. 2. The patient is followup with me in approximately 2-3 weeks. cc: Geovani Diaz MD MTDD
--- NOTE | 2016-11-02 08:19 | OPERATIVE NOTE ---
PROCEDURE DATE: 08/31/2016 SURGEON: Dr. Yasmani Amos. PREOPERATIVE DIAGNOSIS: Gross hematuria with clots. Urinary retention. PRIMARY PROCEDURES: 1. Cystoscopy. 2. Clot evacuation. 3. Fulguration of bleeding. 4. Placement of suprapubic tube. INDICATIONS: A 76-year-old male with a fairly complicated history, who underwent TURP secondary to urinary retention. He has had significant amount of bleeding and required several trips for cystoscopy and clot evacuation. He has not improved in terms of hematuria once his Lovenox has been restarted. Discussion was held about placement of suprapubic tube in hopes that it will irritate the prostatic fossa less where most of the bleeding has been coming from. FINDINGS: No discrete significant bleeding noted. He had generalized oozing from the prostatic fossa. All the clot was evacuated, approximately 100 g, adequate hemostasis at the conclusion of the case. Suprapubic tube was placed in the dome of the bladder. PROCEDURE IN DETAIL: After obtaining informed consent, patient was brought to the operating room. Perioperative antibiotics and laryngeal mask anesthesia were administered. He was placed in lithotomy position, prepped and draped in sterile fashion. Rodriguez catheter was removed and 23- [place] rigid cystoscope was introduced. His prostatic fossa had appearance consistent with recent TUR. There was again no discrete significant bleeder, but he had generalized oozing of the prostatic fossa. I used Bovie electrocautery to fulgurate it, and then advanced the cystoscope into the bladder where a fairly well-organized clot was noted. Estrada syringe was used to remove all of the clot. Upon re-examination, there was no evidence of active bleeding in the bladder or the prostatic fossa. We then turned attention to placement of suprapubic tube. I made a small stab incision with 11 blade approximately two fingerbreadths above the pubic symphysis. We then used curved Lowsley retractor, introduced it via the urethra and brought it out through the suprapubic stab incision. The 22-[place] Rodriguez catheter was backloaded onto the curved Lowsley and introduced into the bladder. The curved Lowsley was then retrieved. The cystoscope was reintroduced and suprapubic tube was seen entering at the dome of the bladder without evidence of active bleeding around it. Then, 5 mL of sterile water was placed into the balloon. The suprapubic tube was tied to the skin with 0 silk suture. The cystoscope was removed and 22- [place] Rodriguez catheter was introduced via urethra as well with 10 mL inflated. It was connected to continuous bladder irrigation with normal saline, extubated, and taken to PACU for further recovery. ACTIVE BLOOD LOSS: 5 mL. COMPLICATIONS: None. DISPOSITION: To PACU and subsequently floor for observation with Rodriguez catheter and suprapubic tube connected to continuous bladder irrigation. cc: MD Geovani Reyna MD
== END 2016-09-20 14:23 ==
LOC: ED 18:41 → 4N 20:31 → ICU 09-09 21:56 → 3S 09-16 15:54
PROVIDERS: ADMIT Internal Medicine; ATTEND Internal Medicine